=== PATIENT | male | born 1935 | race Caucasian/White ===

== ENCOUNTER 2021-11-29 12:07 | Emergency (ER) | payer MEDICARE, OTHER, SELFPAY ==
[2021-11-29 12:08] VITALS: BP 174/85; PULSE 89; RESP 16; TEMP 36; O2SAT 98; BMI 36.0
--- NOTE | 2021-11-29 12:33 | EDS_ITS ---
HPI History of Present Illness Chief Complaint: Cold Sx Informant: patient Narrative Narrative: Presents for treatment for COVID-19. +3 days ago he started having symptoms today feel sinus congestion mild cough. No fevers headache myalgias vomiting or diarrhea. He is COVID vaccinated with 2 boosters last time this past May. No COVID infections in the past. Home test yesterday negative today was positive. Tried calling PCP office they are unable to get him in and sent him to the ED. He denies any kidney issues. History of hypertension hyperlipidemia currently not on statin having side effects. Reports his is on Paxlovid, and is getting better therefore would like this treatment. [facility] Medical History (Updated 11/29/21 @ 12:43 by Polina Wang) Hypertension Home Medications fenofibrate nanocrystallized 145 mg tablet 145 mg PO DAILY 09/08/13 [History Last Taken Unknown] verapamil 240 mg 24 hr capsule,extended release (Verelan) 240 mg PO BID 09/08/13 [History Last Taken 02/02/14 08:30] aspirin 81 mg tablet,delayed release 81 mg PO DAILY@0800 ##1 09/23/13 [Rx Last Taken 01/12/14] Valsartan/Hydrochlorothiazide [Diovan Hct 320-25 Mg Tablet] 1 tab PO DAILY 01/03/14 [History Last Taken Unknown] hydrocodone-acetaminophen 5-325mg 5mg-325mg 1 - 2 tab PO Q6H PRN PRN MILD- MODERATE (PAIN SCALE 1-5) ##90 02/04/14 [Rx Last Taken Unknown] nirmatrelvir 300 mg (150 mg x2)-ritonavir 100 mg tablet,dose pack(EUA) (Paxlovid) See Rx Instructions PO .COMPLEX #30 tabs 11/29/21 [Rx Last Taken Unknown] Allergy/AdvReac Type Severity Reaction Status Date / Time Kgsiyku-WFP-UwS Reductase Allergy Other Verified 11/29/21 12:08 Inhibitor [Lzccgpd-Kih-Zev Reductase Inhibitor] Social History Smoking Status: Never smoker ROS ROS ED Constitutional Constitutional ED: Denies chills, fever(s) or sweats Eyes Eyes: Denies change in vision ENT ENT ED: Reports other Details: Sinus congestion ; Denies dysphagia or sore throat Cardiovascular Cardiovascular: Denies chest pain, leg edema, palpitations or racing heartbeat Respiratory/Chest Respiratory/Chest: Reports cough; Denies dyspnea or dyspnea on exertion Gastrointestinal Gastrointestinal: Denies abdominal pain, diarrhea, nausea or vomiting Genitourinary Genitourinary ED: Denies dysuria, hematuria or urinary frequency Musculoskeletal Musculoskeletal: Denies back pain, extremity pain or neck pain Integumentary Denies rash or wounds Neurologic Neurologic: Denies headache(s), paresthesias or weakness EXAM Physical Exam Const Vital Signs: 11/29/21 12:08 11/29/21 12:41 Temperature 96.8 F L Temperature Source Temporal Pulse Rate 89 Respiratory Rate 16 Respiratory Effort Normal Respiratory Pattern Normal Blood Pressure 174/85 H Blood Pressure Mean 114 Pulse Ox 98 Oxygen Delivery Method Room Air Positive well nourished and well developed General Appearance ED: well developed and NAD HEENT Reports moist mucous membranes normocephalic and atraumatic Eyes PERRL, EOMs intact bilaterally and conjunctivae normal General Eye ED: Yes normal appearance of both eyes Neck no lymphadenopathy and supple General: Negative for tenderness Chest Wall Chest: Negative for tenderness Resp normal respiratory effort and normal air movement Effort and Inspection: symmetric chest movement; Negative for respiratory distress Cardio regular rate, regular rhythm and no murmurs Peripheral Pulses: pulses 2+ throughout GI normal to inspection, nondistended, normoactive bowel sounds and non-tender Palpation: Negative for guarding or rebound tenderness present Back/Spine no CVA tenderness and no thoracic nor lumbar tenderness Extremity normal to inspection General Extremety ED: Negative for edema or tenderness General Extremity: Negative for edema Neuro oriented x3 and no sensory deficits noted Sensorium / Orientation: awake and alert Skin no rashes or lesions noted and no wounds MDM MDM MDM Narrative Medical decision making narrative: Patient nontoxic pulse ox 98% room air. Blood pressure 174/85 on blood pressure medicines. Asymptomatic. No respiratory distress. Prescription for Paxlovid sent to his pharmacy. Discussed potential rebound symptoms. Outpatient follow- up. Initially seen in his medicines [facility], last orthopedic surgery was 6 years ago. He showed me a med list he is only on baby aspirin. This was clarified. Discharge Plan Triage Chief Complaint: Cold Sx ED Provider: Kristian Pond Dx/Rx/DC Orders Clinical Impression: COVID-19 virus infection, Cough, Sinus congestion Instructions: Coronavirus Disease 2019 (COVID-19): Caring for Yourself or Others Prescriptions: New Paxlovid (EUA) 300 mg (150 mg x 2)-100 mg tablets,dose pack See Rx Instructions .ROUTE .COMPLEX Qty: 30 0RF Rx Instructions: take TWO 150 mg tablets of nirmatrelvir with ONE 100 mg tablet of ritonavir twice daily for 5 days Discontinued Xarelto 10 MG tablet 10 mg PO DAILY@0600 Qty: 28 0RF No Action verapamil [Verelan] 240 MG capsule,ext rel. pellets 24 hr 240 mg PO BID Label Comments: heart fenofibrate nanocrystallized 145 MG tablet 145 mg PO DAILY Label Comments: cholesterol aspirin 81 MG tablet 81 mg PO DAILY@0800 Qty: 1 0RF Label Comments: blood thinner/heart health Rx Instructions: DO NOT TAKE WITH XARELTO Valsartan/Hydrochlorothiazide [Diovan Hct 320-25 Mg Tablet] 1 TABLET tablet 1 tab PO DAILY hydrocodone-acetaminophen 1 TABLET tablet 1 - 2 tab PO Q6H PRN PRN (Reason: MILD-MODERATE (PAIN SCALE 1-5)) Qty: 90 0RF Primary Care Provider: Cade Lee Referrals: Cade Lee MD [Primary Care Provider] - 3-5 Days Activity Restrictions/Additional Instructions: Take medication as prescribed. Monitor for low oxygen levels. Disposition Disposition: Home, Self Care Discharge Date/Time: 11/29/21 12:44
== END 2021-11-29 12:44 | disposition home or self-care (01) ==
LOC: ED 12:33
PROVIDERS: Emergency Provider Emergency Medicine; PCP Family Medicine; Visit Provider Emergency Medicine
DX: U07.1 COVID-19 (principal); I10 Essential (primary) hypertension; Z79.82 Long term (current) use of aspirin; Z79.899 Other long term (current) drug therapy
CPT/HCPCS: 99282

== ENCOUNTER 2024-09-21 09:34 | Emergency (ER) | payer MEDICARE, OTHER, SELFPAY ==
[2024-09-21 09:35] VITALS: BP 136/78; PULSE 94; RESP 14; TEMP 36.6; O2SAT 97; BMI 34.7
--- NOTE | 2024-09-21 09:54 | VDLE_ITS ---
Reason For Study Reason For Study: Right leg pain RIGHT LEFT GSV is normal. CFV is compressible, spontaneous, phasic, competent, CFV is compressible, spontaneous, phasic, competent and demonstrates normal augmentation. and demonstrates normal augmentation. FV is compressible, spontaneous, phasic, competent and demonstrates normal augmentation. POP V is compressible, spontaneous, phasic, competent and demonstrates normal augmentation. T/P Trunk is compressible. PTV is compressible. RT PerV is compressible. Procedure This is a venous duplex using B-mode, color flow and spectral Doppler. Exam performed portable in ED. A preliminary report was called and/or faxed to Dr. Maldonado. VL/Venous Duplex US, Unilateral Interpretation Summary Deep veins of the right lower extremity are patent and compressible segmentally . There is no evidence of right lower extremity deep vein thrombosis. The right great saphenous vein appears patent a nd compressible segmentally. Ordering Physician: Karlos Maldonado Referring Physician: Cade Lee Performed By: Marija Gregorio RVT
--- NOTE | 2024-09-21 09:56 | RAD_ITS ---
EXAM: Right tibia and fibula, four views CLINICAL HISTORY: Pain COMPARISON: None TECHNIQUE: 2 AP and 2 lateral views of the right tibia and fibula FINDINGS: No demonstrated fracture or suspicious osseous lesion. Joint spaces are well-preserved Atherosclerotic calcifications. RAD/Tibia & Fibula 2 Views IMPRESSION: No acute abnormalities Reading Location: [id number]
--- NOTE | 2024-09-21 09:56 | RAD_ITS ---
PROCEDURE: FEMUR MIN 2 VIEWS 09/21/2024 REASON FOR EXAM: PAIN TECHNIQUE: FEMUR MIN 2 VIEWS Laterality: Right COMPARISON: None FINDINGS: No demonstrated femoral fracture. 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 The femoral component is free of complication or failure. Age consistent degenerative changes in the right knee. Soft tissues show peripheral calcifications in the popliteal artery No foreign body or suspicious soft tissue swelling RAD/Femur Min 2 Views IMPRESSION: No acute abnormalities Reading Location: [id number]
--- NOTE | 2024-09-21 09:56 | ED.VIS.LOWEX ---
HPI History of Present Illness Chief Complaint: Lower Extremity Injury Informant: patient and family Narrative Narrative: 88-year-old male brought in by family because 2 days ago he was at [employer] kneeling and as soon as he stood up he had a sudden onset of pain in his right buttock, anterior thigh, and his lower leg mostly in his galindo area. When he is resting is not really bothering him. He states he is spreading muscle cream on the areas and it really helps temporarily but then the pain returns, and is bad until he puts more muscle cream on it. He states when the muscle cream is there he has a little bit of discomfort but is able to walk. Weightbearing makes him hurt, and all of those above-mentioned areas. He does not have pain in his back, but he does have pain into the right buttock and he points in the area of the ischial tuberosity, as well as the posterior aspect of the hip but most of the pain otherwise is anterior and does not go down the back of his leg. He denies any numbness. He is not having claudication. He denies any other injury or fall. He denies any systemic symptoms, abdominal pain, chest discomfort or anything else. Family and patient agree that a week ago he had a day where he was feeling lightheaded off-and-on and he had some blood pressures that were borderline low, one of them being in the 90s but the majority of them being from 104-115 systolic. He states it has been a week since that has been the case, including the lightheadedness. [facility] Medical History Hypertension Home Medications ?Medication ?Instructions ?Recorded ?Last Taken ?Type fenofibrate nanocrystallized 145 145 mg PO DAILY 09/08/13 Unknown History mg tablet verapamil 240 mg 24 hr 240 mg PO BID 09/08/13 02/02/14 08:30 History capsule,extended release (Verelan) aspirin 81 mg tablet,delayed 81 mg PO DAILY@0800 ##1 09/23/13 01/12/14 Rx release Valsartan/Hydrochlorothiazide 1 tab PO DAILY 01/03/14 Unknown History [Diovan Hct 320-25 Mg Tablet] hydrocodone-acetaminophen 5-325mg 1 - 2 tab PO Q6H PRN PRN 02/04/14 Unknown Rx 5mg-325mg MILD-MODERATE (PAIN SCALE 1-5) ##90 nirmatrelvir 300 mg (150 mg See Rx Instructions PO .COMPLEX 11/29/21 Unknown Rx x2)-ritonavir 100 mg tablet,dose #30 tabs pack (Paxlovid) hydrocodone-acetaminophen 5-325mg 1 tab PO Q6H PRN PRN Pain 3 days 09/21/24 Unknown Rx 5mg-325mg #10 TABLETS prednisone 20 mg tablet 40 mg (2 x 20 mg) PO DAILY 5 days 09/21/24 Unknown Rx #10 tabs Allergy/AdvReac Type Severity Reaction Status Date / Time Knmmpme-VND-ClF Reductase Allergy Other Verified 09/21/24 09:35 Inhibitor (Haprdvg-Qbk-Hwn Reductase Inhibitor) Social History Smoking Status: Never smoker ROS ROS ED Constitutional Constitutional ED: Denies chills or fever(s) ENT ENT ED: Denies rhinorrhea or sore throat Cardiovascular Cardiovascular: Denies chest pain Respiratory/Chest Respiratory/Chest: Denies dyspnea Gastrointestinal Gastrointestinal: Denies abdominal pain Musculoskeletal Musculoskeletal: Reports extremity pain; Denies back pain or neck pain Integumentary Denies Abrasions, rash or wounds Neurologic Neurologic: Denies headache(s), paresthesias or weakness EXAM Physical Exam Const Vital Signs: 09/21/24 09:35 09/21/24 12:19 09/21/24 14:00 Temperature 98 F Temperature Source Temporal Pulse Rate 94 78 64 Respiratory Rate 14 16 18 Blood Pressure 136/78 H 138/78 H 138/78 H Blood Pressure Mean 97 98 98 Pulse Ox 97 98 98 Oxygen Delivery Method Room Air Room Air Room Air Positive well nourished and well developed General Appearance ED: well developed and NAD Neck full ROM and supple Resp normal respiratory effort and clear to auscultation bilaterally Cardio regular rate and regular rhythm GI non-tender and non-distended Auscultation: normoactive bowel sounds Palpation: soft Back/Spine no CVA tenderness, normal ROM and normal to inspection Back/Spine Narrative: SI joints, pelvic brim, ischial tuberosity all nontender Lumbar Spine / Lower Back: Negative for lumbar spinal tenderness Extremity full ROM Extremity Narrative: With regards to the right lower extremity, all compartments are soft and nondistended and nontender at rest. With passive full range of motion of the foot/ankle, knee, hip, patient does not have any pain or numbness/tingling. Reflexes are 1+ bilaterally but symmetric. No clonus. Downgoing toes. Difficult to palpate dorsalis pedis pulses but they are symmetric bilaterally, and he has brisk 2-second cap refill all toes. He does not have hip joint pain when I internally and externally rotate/logroll his right lower extremity. There are no palpable cords and his Homans' sign is negative. There is no edema in the leg and there is no asymmetry compared with the contralateral. There are no rashes or lesions to suggest cellulitis. Neuro oriented x3, no focal motor deficits and no sensory deficits noted Sensorium / Orientation: alert Psych mental status grossly normal and thought process normal Skin no wounds Rashes: no rashes MDM MDM MDM Narrative Medical decision making narrative: Patient states his leg is feeling pretty good right now because I have a muscle cream on. I can confirm this, because I can smell it. I am not able to reproduce any significant pain in any of these areas by palpating so I got him out of bed and had him bear weight. He was able to walk several steps forward and turned around to come back to the bed and he said he felt something in his right proximal thigh and buttock, but he really has no significant pain right now even with weightbearing and he states he thinks it is because of the muscle cream. Family member in the room states that she had a family member with a blood clot and they presented exactly the same. I advised her that there is nothing here to suggest that any of the symptoms are related to venous thromboembolism or claudication and that all of this seems to be very muscular in etiology. She is insistent on getting an ultrasound and for that reason it was obtained in addition to other test to rule out emergent conditions including CPK, basic labs, and x-rays of the right femur, tib-fib, and pelvis all of which included approximately 6 x-rays and on my interpretation are all negative for acute bony abnormality. We were able to Doppler pulses that are symmetric both feet very easily. According to the preliminary verbal interpretation of the venous eval from the commercial hvac technician, there is no evidence of venous thromboembolism. There was some delay in getting him to x-ray, and he started to have some more pain. He said at this point he was developing a little bit of tingling in the peroneal 3 toes but nowhere else. He stated that if he bends his knee up and flex the thigh, it felt more tingly and if he straighten his leg out it was better. Etiology of this is unknown, his straight leg raises were negative on exam suggesting he does not have sciatica. This could be peripheral neuropathy, it could simply be related to muscle spasms Irritating nerve endings, however I do not think he has any emergent limb threatening process here. On multiple examinations his skin exam is normal he has no rashes. Family I do not think this is central etiology of paresthesias. I think putting him on a 5-day course of prednisone in case this may or may not be a radiculopathy, is reasonable and also a prescription for some [place], we did give him a dose of Norflex and morphine here and he felt better, I think he can safely go home and follow-up with his doctor and continue using the muscle cream at his request. History & Record Review Discussion w/independent historian: Patient and Family (x2) Lab Data Attestation: I reviewed the patient's lab results. Labs: Laboratory Results - last 24 hr 09/21/24 10:09 WBC 8.0 RBC 4.62 Hgb 14.8 Hct 44.3 MCV 95.9 H MCH 32.0 MCHC 33.4 RDW Std Deviation 46.1 H RDW Coeff of Sammi 13.0 Plt Count 323 MPV 9.8 Sodium 137 Potassium 4.6 Chloride 104 Carbon Dioxide 19.1 L Anion Gap 14 BUN 34 H Creatinine 1.83 H Estim Creat Clear Calc 32.14 L Est GFR (MDRD) Non-Af 35 L BUN/Creatinine Ratio 18.6 Glucose 130 H Calcium 9.4 Total Creatine Kinase 60 Radiography Diagnostic Testing: Clinical Impression(s) from Imaging Studies Venous Doppler Study 09/21/24 09:54 Interpretation Summary Deep veins of the right lower extremity are patent and compressible segmentally. There is no evidence of right lower extremity deep vein thrombosis. The right great saphenous vein appears patent and compressible segmentally. Ordering Physician: Karlos Maldonado Referring Physician: Cade Lee Performed By: Marija Gregorio RVT Femur X-Ray 09/21/24 09:56 IMPRESSION: No acute abnormalities Reading Location: [facility] Tibia/Fibula X-Ray 09/21/24 09:56 IMPRESSION: No acute abnormalities Reading Location: [facility] Pelvis X-Ray 09/21/24 11:55 IMPRESSION: No acute abnormalities. Replaced hip joints free of complication Reading Location: [facility] Discharge Plan Triage Chief Complaint: Lower Extremity Injury ED Provider: Karlos Maldonado Dx/Rx/DC Orders Clinical Impression: Acute pain of right lower extremity Instructions: ED Sciatica, ED Muscle Strain, Extremity Prescriptions: New hydrocodone-acetaminophen 5-325 mg tablet 1 tab PO Q6H PRN PRN (Reason: Pain) 3 Days Qty: 10 0RF prednisone 20 mg tablet 40 mg PO DAILY 5 Days Qty: 10 0RF No Action verapamil [Verelan] 240 MG capsule,ext rel. pellets 24 hr 240 mg PO BID Patient Comments: heart fenofibrate nanocrystallized 145 MG tablet 145 mg PO DAILY Patient Comments: cholesterol aspirin 81 MG tablet 81 mg PO DAILY@0800 Qty: 1 0RF Patient Comments: blood thinner/heart health Rx Instructions: DO NOT TAKE WITH XARELTO Valsartan/Hydrochlorothiazide [Diovan Hct 320-25 Mg Tablet] 1 TABLET tablet 1 tab PO DAILY hydrocodone-acetaminophen 1 TABLET tablet 1 - 2 tab PO Q6H PRN PRN (Reason: MILD-MODERATE (PAIN SCALE 1-5)) Qty: 90 0RF Paxlovid 300 mg (150 mg x 2)-100 mg tablets,dose pack See Rx Instructions .ROUTE .COMPLEX Qty: 30 0RF Rx Instructions: take TWO 150 mg tablets of nirmatrelvir with ONE 100 mg tablet of ritonavir twice daily for 5 days Primary Care Provider: Cade Lee Referrals: Cade Lee MD [Primary Care Provider] - 3-5 Days if not improving Activity Restrictions/Additional Instructions: As long as it is helping you may continue to use the muscle cream as needed. Use the prescription pain medication for breakthrough pain if you need it. When you fill the prednisone, take it as prescribed until finished. Print Language: Bulgarian Disposition Disposition: Home, Self Care Discharge Date/Time: 09/21/24 14:30
[2024-09-21 10:15] LABS: Hematocrit 44.3 % (40-54); Hemoglobin 14.8 g/dL (13.0-16.5); Mean Corp Hgb Conc 33.4 g/dL (32-36); Mean Corpuscular Volume 95.9 fL (80-94); Mean Platelet Vol. 9.8 fl (6.2-12.0); Platelet Count 323 K/mm3 (150-450); RBC Distribution Width CV 13.0 % (11.6-14.6); RBC Distribution Width SD 46.1 fl (35.1-43.9); Red Blood Count 4.62 M/mm3 (4.6-6.2); White Blood Count 8.0 K/mm3 (4.4-11.0)
[2024-09-21 10:46] LABS: Anion Gap 14 (5-15); BUN 34 mg/dL (4-19); BUN/Creat Ratio 18.6 RATIO (10-20); CPK Total, Creatine Kinase 60 U/L (24-195); Calcium,Total 9.4 mg/dL (7.6-11.0); Carbon Dioxide 19.1 mmol/L (21.0-32.0); Chloride 104 mmol/L (98-108); Estimated Creatinine Clearance 32.14 ml/min (50-250); Glucose 130 mg/dL (70-99); Potassium 4.6 mmol/L (3.3-5.1)
--- NOTE | 2024-09-21 11:55 | RAD_ITS ---
PROCEDURE: PELVIS 1 OR 2 VIEWS 09/21/2024 REASON FOR EXAM: PAIN TECHNIQUE: PELVIS 1 OR 2 VIEWS COMPARISON: None FINDINGS: Both hips have been previously replaced. Components demonstrate anatomic alignment, no plain film evidence of hardware complication or failure. No demonstrated pelvic fracture, SI joints are well-preserved. No aggressive osseous lesion. RAD/Pelvis 1 or 2 Views IMPRESSION: No acute abnormalities. Replaced hip joints free of complication Reading Location: [id number]
[2024-09-21 12:19] VITALS: BP 138/78; PULSE 78; RESP 16; O2SAT 98
[2024-09-21] MEDS: Orphenadrine 60 MG/2 ML Ampul IV (12:29)
[2024-09-21 14:00] VITALS: BP 138/78; PULSE 64; RESP 18; O2SAT 98
[2024-09-21 14:29] VITALS: BP 135/81; PULSE 81; RESP 14; TEMP 36.6; O2SAT 98
--- OUTSIDE RECORDS SUMMARY | 2024-09-21 19:34 | XMS RPT_ITS | CCD ---
Author Organization [facility] Care Team Providers Care Certified Endoscopy Technician Name Role Phone Cade Laureano MD Primary Care Provider Kristian Pond Attending Unavailable Cade Laureano Primary Care Unavailable Cdae Laureano MD Primary Care Provider Cade Laureano MD Primary Care Provider Cade Laureano MD Primary Care Provider Rk GASOLINE TESTER.SARBJIT, Maday Unavailable Destiney Pichardo PA-C Unavailable Cade Laureano MD Primary Care Provider Rk GASOLINE TESTER.CORPORATE REAL ESTATE SPECIALIST, Maday Unavailable Destiney Pichardo PA-C Unavailable DESTINEY PICHARDO Attending Unavailable CADE LAUREANO Primary Care Unavailable DESTINEY PICHARDO Referring Unavailable CADE LAUREANO Primary Care Unavailable DESTINEY PICHARDO Referring Unavailable CADE LAUREANO Primary Care Unavailable CADE LAUREANO Attending Unavailable CADE LAUREANO Primary Care Unavailable CADE LAUREANO Referring Unavailable CADE LAUREANO Primary Care Unavailable Rosa BEINTO, Dr. Mohamud Primary Care Provider Dr. Karlos Maldonado MD Emergency Provider Janki BENITO, Dr. Youssef Attending Provider Allergies Allergy Classification Reported Allergen(s) Allergy Type Date of Onset Reaction(s) Facility Angiotensin Converting Enzyme (KORI) Inhibitors (1 source) Ramipril Drug Allergy 01-10-20 09 Cough [facility] Work Phone: Quinolones (antibiotic) (1 source) Ciprofloxacin Drug Allergy 05-09-19 16 Diarrhea [facility] (20 sources) Ciprofloxacin; Translations: [CIPROFLOXACIN] Drug Allergy 05-09-19 16 Diarrhea [facility] Work Phone: (20 sources) Ramipril; Translations: [RAMIPRIL] Drug Allergy 01-10-20 09 Cough [facility] Work Phone: (4 sources) Thiazides; Translations: [THIAZIDES] Drug Intolerance 04-08-19 Other: See Comments [facility] Work Phone: (17 sources) Thiazides Drug Intolerance 04-08-19 Other: See Comments [facility] Work Phone: (2 sources) Xatcjoo-Gxg-Yvf Reductase Inhibitor Allergy to substance 11-30-19 Other [facility] (1 source) Dpaleaz-Gsn-Ouw Reductase Inhibitor Drug allergy (disorder) 11-30-19 [facility] Repository (2 sources) Thiazides Drug Intolerance 04-08-19 Other: See Comments [facility] Medications Current Medications Medication Drug Class(es) Dates Sig (Normalized) Sig (Original) acetaminophen 325 mg / HYDROcodone bitartrate 5 mg oral tablet (3 sources) Opioid Agonist Start: 02-04-2014 take 1 tablet by mouth every six hours as needed for pain Hydrocodone-Aceta minophen 5-325 mg tablet Active 1 {tbl} PO EVERY 6 HOURS NEEDED as needed for Pain 10 3 0 September 21, 2024 Acute pain of right lower extremity Pain in right leg Start: 02-04-2014 take 1 tablet by reese th every six hours as needed Hydrocodone-Acetaminophen Active 1 - 2 TABLET PO EVERY 6 HOURS NEEDED February 04, 2014 1:00am aspirin 81 mg delayed release oral tablet (20 sources) Platelet Aggregation Inhibitor, Nonsteroidal Anti-inflammatory Drug Start: 09-08-2013 End: 09-23-2013 take 1 tablet by mouth once daily aspirin, enteric coated (ADULT LOW DOSE ASPIRIN) 81 mg EC tablet Take 1 tablet by mouth once daily. 0 05/05/2014 Active Comment on above: Take 1 tablet by reese th once daily. cholecalciferol 0.025 mg oral capsule (1 source) Vitamin D Start: 08-17-2024 take 2 capsules by mouth once daily Cholecalciferol, Vitamin D3, (VITAMIN D) 25 mcg (1,000 unit) cap Take 2 capsules by mouth once daily. 08/17/2024 Active fenofibrate 145 mg oral tablet (20 sources) Peroxisome Proliferator Receptor alpha Agonist Start: 07-01-2024 take 1 tablet by mouth once daily fenofibrate nanocrystallized (TRICOR) 145 mg tablet Take 1 tablet by mouth once daily. 90 tablet 1 07/01/2024 Active Start: 09-08-2013 End: 01-02-2024 take 1 tablet by mouth once daily fenofibrate nanocrystallized (TRICOR) 145 mg tablet Take 1 tablet by mouth once daily. 90 tablet 1 01/02/2024 Active Comment on above: Take 1 tablet by reese th once daily. 12 hr guaiFENesin 600 mg extended release oral tablet (9 sources) Start: take 2 tablets by mouth twice daily guaiFENesin (MUCINEX) 600 mg 12 hr tablet Take 2 tablets by mouth two times a day. 08/25/2023 Active hydroCHLOROthiazide 25 mg / valsartan 320 mg oral tablet (2 sources) Thiazide Diuretic, Angiotensin 2 Receptor Guido Start: take 1 tablet by mouth once daily Valsartan/Hydroch lorothiazide (Diovan Hct 320-25 Mg Tablet) 1 TABLET tablet Active 1 {tbl} PO DAILY January 03, 2014 1:00am ipratropium bromide 0.021 mg/actuat metered dose nasal spray (9 sources) Anticholinergic Start: Ipratropium [place] (ATROVENT) 21 mcg (0.03 %) nasal spray Use 2 Sprays in the nose every 12 hours. 08/25/2023 Active latanoprost 0.05 mg/ml ophthalmic solution (20 sources) Prostaglandin Analog latanoprost , PF, 0.005 % drop Use in eyes. Active Comment on above: Use in eyes. Loratadine (20 sources) loratadine (CLARITIN ORAL) Take by mouth. Active loratadine (CLAR ITIN ORAL) Take by mouth. 0 Active Comment on above: Take by mouth. melatonin 1 mg oral tablet (11 sources) take 1 mg by mouth once daily at bedtime MELATONIN ORAL Take 1 mg by mouth daily at bedtime. Active Nirmatrelvir-Ritonav ir (2 sources) Start: 11-29-2021 Nirmatrelvir-Ritonavir (Paxlovid (Eua)) 300 mg (150 mg x 2)-100 mg tablets,dose pack Active 0 PO .COMPLEX November 29, 2021 12:00am take TWO 150 mg tablets of nirmatrelvir with ONE 100 mg tablet of ritonavir twice daily for 5 days Start: 11-29-2021 Nirmatrelvir-R itonavir (Paxlovid (Eua)) 300 mg (150 mg x 2)- 100 mg tablets,dose pack Active 0 PO .COMPLEX November 29, 2021 12:00am take TWO 150 mg tablets of nirmatrelvir with ONE 100 mg tablet of ritonavir twice daily for 5 days predniSONE 20 mg oral tablet (1 source) Start: 09-21-2024 take 2 tablets by mouth once daily Prednisone 20 mg tablet Active 40 mg PO DAILY 10 September 21, 2024 12:00am spironolactone 25 mg oral tablet (20 sources) Aldosterone Antagonist Start: 07-19-2022 End: 04-20-2024 take 1 tablet by mouth once daily spironolactone (ALDACTONE) 25 mg tablet Indications: Essential hypertension Take 1 tablet by mouth once daily. 90 tablet 2 04/20/2024 Active Start: 06-08-2021 End: 09-10-2021 take 1 tablet by mouth once daily spironolactone (ALDACTONE) 25 mg tablet Take 1 tablet by mouth once daily. 90 tablet 2 09/10/2021 Active Comment on above: Take 1 tablet by reese once daily. traZODone hydrochloride 50 mg oral tablet (11 sources) Serotonin Reuptake Inhibitor Start: take 1 tablet by mouth once daily at bedtime traZODone (DESYREL) 50 mg tablet Take 1 tablet by mouth daily at bedtime. 90 tablet 1 03/05/2024 Active Start: 07-22-2023 End: 02-16-2024 take 1 tablet by mouth once daily at bedtime traZODone (DESYREL) 50 mg tablet Take 1 tablet by mouth daily at bedtime. 90 tablet 1 07/22/2023 02/16/2024 Discontinued (Discontinued by Patient) verapamil hydrochloride 240 mg extended release oral tablet (20 sources) Calcium Channel Guido Start: 07-19-2022 End: 07-19-2024 take 1 tablet by mouth twice daily verapamil SR (CALAN SR) 240 mg CR tablet Indications: Essential hypertension Take 1 tablet by mouth two times a day. 180 tablet 3 07/19/2024 Active Start: 06-08-2021 End: 07-17-2021 take 1 tablet by mouth twice daily verapamil SR (CALAN SR, ISOPTIN SR) 240 mg CR tablet Take 1 tablet by mouth twice daily. 180 tablet 1 07/17/2021 Active Start: 09-08-2013 take 1 capsule by mo [facility] twice daily Verapamil (Verelan) 240 MG capsule,ext rel. pellets 24 hr Active 240 mg PO TWICE A DAY September 08, 2013 12:00am Comment on above: Take 1 tablet by reese twice daily. Take 1 tablet by reese two times a day. vitamin b12 1 mg oral tablet (16 sources) Vitamin B12 Start: 05-14-2023 End: 07-22-2023 take 1 tablet by mouth once daily cyanocobalamin (VITAMIN B-12) 1,000 mcg tab Take 1 tablet by mouth once daily. 90 tablet 3 07/22/2023 Active Comment on above: Take 1 tablet by reese once daily. Completed/Discontinued Medications Medication Drug Class(es) Dates Sig (Normalized) Sig (Original) acetaminophen 500 mg oral tablet (4 sources) take 1 tablet by mouth every eight hours as needed acetaminophen (TYLENOL EXTRA STRENGTH) 500 mg tablet Take 500 mg by mouth every 8 hours as needed. 0 Active Comment on above: Take 500 mg by mouth every 8 hours as needed. docusate sodium 50 mg / sennosides, snf 8.6 mg oral tablet (3 sources) Start: 05-20-2023 End: 07-22-2023 take 1 tablet by mouth twice daily senna-docusate (SENNA WITH DOCUSATE SODIUM) 8.6-50 mg per tablet Take 1 tablet by mouth two times a day. 60 tablet 5 05/20/2023 07/22/2023 Discontinued Comment on above: Take 1 tablet by reese two times a day. montelukast 10 mg oral tablet (20 sources) Leukotriene Receptor Antagonist Start: 07-19-2022 End: 02-16-2024 take 1 tablet by mouth once daily at bedtime montelukast (SINGULAIR) 10 mg tablet Indications: Allergic rhinitis, unspecified seasonality, unspecified trigger Take 1 tablet by mouth daily at bedtime. 90 tablet 1 07/29/2023 02/16/2024 Discontinued (Discontinued by Patient) Comment on above: Take 1 tablet by reese th daily at bedtime. Take 10 mg by mouth daily at bedtime. naproxen sodium 220 mg oral tablet (20 sources) Nonsteroidal Anti-inflammatory Drug Start: 09-08-2013 End: 09-23-2013 take 2 tablets by mouth every twelve hours as needed for pain Naproxen Sodium (Aleve) 220 MG tablet Discontinued 440 mg PO EVERY 12 HOURS NEEDED as needed for Pain September 08, 2013 12:00am September 23, 2013 1:43pm naproxen sodium 220 mg cap Take by mouth as directed. Active Comment on above: Take by mouth as dir ected. Polyethylene Glycols (6 sources) End: 02-16-2024 polyethylene glycol 3350 (MIRALAX ORAL) Take by mouth. 02/16/2024 Discontinued (Discontinued by Patient) polyethylene gly col 3350 (MIRALAX ORAL) Take by mouth. Active polyethylene gly col 3350 (MIRALAX ORAL) Take by mouth. 0 Active rivaroxaban 10 mg oral tablet (2 sources) Factor Xa Inhibitor Start: 02-04-2014 End: 11-29-2021 take 1 tablet by mouth once daily Rivaroxaban (Xarelto) 10 MG tablet Discontinued 10 mg PO DAILY@0600 28 0 February 04, 2014 1:00am November 29, 2021 12:30pm traMADol hydrochloride 50 mg oral tablet (2 sources) Opioid Agonist Start: 01-03-2014 End: 02-04-2014 take 1 tablet by mouth twice daily Tramadol 50 MG tablet Discontinued 50 mg PO TWICE A DAY January 03, 2014 1:00am February 04, 2014 2:12pm Problems Active Problems Problem Classification Problem Date Documented Da te Episodic/Chronic Chronic kidney disease (20 sources) Chronic kidney disease stage 3A ; Translations: [Stage 3a chronic kidney disease] Onset: 01-29-2016 11-03-2020 Chronic Chronic kidney disease (1 source) Chronic kidney disease; Translations: [Stage 3a chronic kidney disease (HCC)] Onset: 11-03-2020 Disorders of lipid metabolism (20 sources) Mixed hyperlipidemia; Translations: [Mixed hyperlipidemia] Onset: 02-05-2021 Resolved: 11-06-2010 02-05-2021 Chronic Essential hypertension (20 sources) Essential hypertension; Translations: [Essential (primary) hypertension] Onset: 11-08-2014 08-14-2016 Chronic Fluid and electrolyte disorders (20 sources) Hypokalemia; Translations: [Hypokalemia] Onset: 04-02-2018 04-02-2018 Episodic Hyperplasia of prostate (20 sources) Benign prostatic hyperplasia; Translations: [Benign prostatic hyperplasia without lower urinary tract symptoms] Onset: 11-08-2014 11-08-2014 Chronic Malaise and fatigue (1 source) Fatigue; Translations: [Other fatigue] 05-13-2023 Episodic Miscellaneous mental health disorders (14 sources) Primary insomnia; Translations: [Primary insomnia] Onset: 07-22-2023 05-13-2023 Chronic Neoplasms of unspecified nature or uncertain behavior (1 source) Thrombocytosis; Translations: [Thrombocytosis] 05-14-2023 Episodic Nutritional deficiencies (2 sources) Vitamin D deficiency; Translations: [Vitamin D deficiency, unspecified] Onset: 08-17-2024 08-17-2024 Chronic Osteoarthritis (20 sources) Lower limb joint arthritis; Translations: [Unilateral primary osteoarthritis, unspecified hip] Onset: 11-05-2013 01-29-2016 Chronic Other connective tissue disease (1 source) Pain in lower limb; Translations: [Pain in right leg] 09-21-2024 Episodic Other lower respiratory disease (2 sources) Cough; Translations: [Cough] 12-07-2021 Episodic Other nutritional; endocrine; and metabolic disorders (1 source) Hypercalcemia; Translations: [Hypercalcemia] 08-16-2024 Chronic Other nutritional; endocrine; and metabolic disorders (1 source) Hypercalcemia; Translations: [Hypercalcemia] Onset: 08-16-2024 Chronic Other screening for suspected conditions (not mental disorders or infectious disease) (1 source) Serum creatinine raised; Translations: [Other specified abnormal findings of blood chemistry] 05-14-2023 Episodic Other skin disorders (1 source) Actinic keratosis; Translations: [Actinic keratosis] 02-16-2024 Episodic Other upper respiratory disease (20 sources) Allergic rhinitis; Translations: [Allergic rhinitis, unspecified] Onset: 07-19-2022 01-20-2023 Chronic Other upper respiratory disease (2 sources) Congestion of nasal sinus; Translations: [Nasal congestion] 12-07-2021 Episodic Residual codes; unclassified (1 source) Family history of factor V deficiency; Translations: [Family history of diseases of the blood and blood-forming organs and certain disorders involving the immune mechanism] 05-13-2023 Episodic Viral infection (2 sources) Disease caused by 2019-nCoV; Translations: [COVID-19] 11-29-2021 Episodic Viral infection (1 source) COVID-19; Translations: [COVID-19] Onset: 12-05-2021 Past or Other Problems Problem Classification Problem Date Documented Date Episodic/Chronic Administrative/social admission (19 sources) Advance directive discussed with patient; Translations: [Other specified counseling] Onset: 01-17-2022 01-17-2022 Episodic Diabetes mellitus without complication (20 sources) Hyperglycemia; Translations: [Hyperglycemia, unspecified] Onset: 03-03-2019 09-01-2019 Episodic Nutritional deficiencies (20 sources) Serum vitamin B12 low; Translations: [Deficiency of other specified B group vitamins] Onset: 05-14-2023 05-14-2023 Episodic Other aftercare (20 sources) Patient encounter status; Translations: [Other spray gun repairer (current) drug therapy] Onset: 09-01-2019 09-01-2019 Episodic Other aftercare (1 source) Other [facility] (current) drug therapy; Translations: [Medication management] Onset: 09-01-2019 Episodic Other male genital disorders (20 sources) Disorder of prostate; Translations: [Disorder of prostate, unspecified] Onset: 05-09-2015 05-09-2015 Episodic Other male genital disorders (1 source) Disorder of prostate, unspecified; Translations: [Disorder of prostate] Onset: 05-09-2015 Episodic Other non-epithelial cancer of skin (20 sources) Basal cell carcinoma of skin; Translations: [Basal cell carcinoma of skin, unspecified] Onset: 05-09-2015 02-05-2021 Episodic Screening and history of mental health and substance abuse codes (20 sources) Ex-smoker; Translations: [Personal history of nicotine dependence] Onset: 03-03-2019 03-04-2019 Episodic Spondylosis; intervertebral disc disorders; other back problems (12 sources) Degeneration of lumbosacral intervertebral disc; Translations: [Other intervertebral disc degeneration, lumbosacral region] Onset: 05-21-2000 Resolved: 11-06-2010 11-06-2010 Chronic Spondylosis; intervertebral disc disorders; other back problems (20 sources) Spinal stenosis of lumbar region; Translations: [Spinal stenosis, lumbar region without neurogenic claudication] Onset: 05-21-2000 01-29-2016 Episodic Results Test Name Value Interpretation Reference Range Facility Anion gap in Serum or Plasma Ordered By: Karlos Maldonado on 09-21-2024 Anion gap [Moles/Vol] 14 mmol/L 5-15 [facility] BUN/creatinine ratioOrdered By: Karlos Maldonado on 09-21-2024 Urea nitrogen/Creatinine [Mass ratio] 18.6 mg/mg 10-20 [facility] Carbon dioxide, total [Moles /volume] in Central venous bloodOrdered By: Karlos Maldonado on 09-21-2024 CO2 [Moles/Vol] 19.1 mmol/L Low 21.0-32.0 [facility] Chloride assayOrdered By: Emily Maldonado on 09-21-2024 Chloride [Moles/Vol] 104 mmol/L 98-108 [facility] Erythrocyte distribution wid th ratioOrdered By: Karlos Maldonado on 09-21-2024 Erythrocyte distribution width (RBC) [Ratio] 13.0 % 11.6-14.6 [facility] Erythrocyte distribution wid th standard deviationOrdered By: Karlos Maldonado on 09-21-2024 Erythrocyte distribution width (RBC) [Ratio] 46.1 fl High 35.1-43.9 [facility] Glomerular filtration rate ( GFR) estimation/1.73 sq m using serum, plasma, or whole bOrdered By: Karlos Maldonado on 09-21-2024 GFR/1.73 sq M.predicted among non-blacks MDRD (S/P/Bld) [Vol rate/Area] 35 mL/min/{1.73_m2} Low >60 [facility] Comment on above: mL/min/1.73m2 CKD-EP I Creatinine Equation (2020) Hematocrit Auto (Bld) [Volum e fraction]Ordered By: Karlos Maldonado on 09-21-2024 Hematocrit (Bld) [Volume fraction] 44.3 % 40-54 [facility] Hemoglobin measurementOrdere d By: Karlos Maldonado on 09-21-2024 Hemoglobin (Bld) [Mass/Vol] 14.8 g/dL 13.0-16.5 [facility] MCV (mean corpuscular volume ) determinationOrdered By: Karlos Maldonado on 09-21-2024 MCV (RBC) [Entitic vol] 95.9 fL High 80-94 [facility] Mean corpuscular hemoglobin (MCH) determinationOrdered By: Karlos Maldonado on 09-21-2024 MCH (RBC) [Entitic mass] 32.0 pg 27.0-32.0 [facility] Mean corpuscular hemoglobin concentration (MCHC) determinationOrdered By: Karlos Maldonado on 09-21-2024 MCHC (RBC) [Mass/Vol] 33.4 g/dL 32-36 [facility] Mean platelet volume determi nationOrdered By: Karlos Maldonado on 09-21-2024 Platelet mean volume (Bld) [Entitic vol] 9.8 fL 6.2-12.0 [facility] Platelet countOrdered By: Emily Maldonado on 09-21-2024 Platelets (Bld) [#/Vol] 323 10*3/uL 150-450 [facility] Potassium measurement (mass/ volume)Ordered By: Karlos Maldonado on 09-21-2024 Potassium (Unsp spec) [Mass/Vol] 4.6 mmol/L 3.3-5.1 [facility] RBC Auto (Bld) [#/Vol]Ordere d By: Karlos Maldonado on 09-21-2024 RBC (Bld) [#/Vol] 4.62 10*6/uL 4.6-6.2 [facility] Serum creatinine measurement (mass/volume)Ordered By: Karlos Maldonado on 09-21-2024 Creatinine [Mass/Vol] 1.83 mg/dL High 0.70-1.20 [facility] Serum glucose measurement (m ass/volume)Ordered By: Karlos Maldonado on 09-21-2024 Glucose [Mass/Vol] 130 mg/dL High 70-99 [facility] Serum or plasma calcium rudy urement (mass/volume)Ordered By: Karlos Maldonado on 09-21-2024 Calcium [Mass/Vol] 9.4 mg/dL 7.6-11.0 [facility] Serum or plasma creatine kin ase activityOrdered By: Karlos Maldonado on 09-21-2024 CK [Catalytic activity/Vol] 60 U/L 24-195 [facility] Serum or plasma urea nitroge n measurement (mass/volume)Ordered By: Karlos Maldonado on 09-21-2024 Urea nitrogen [Mass/Vol] 34 mg/dL High 4-19 [facility] Sodium levelOrdered By: Hunter Maldonado on 09-21-2024 Sodium [Moles/Vol] 137 mmol/L 133-145 [facility] Venous duplex ultrasound rep ortOrdered By: Mikael Shearer on 09-21-2024 US Vein [facility] [address] [place] [address] Venous Duplex US, Unilateral 09/21/24 0956 MR#: [id number] Acct: [id number] Name: JENIFER PEREZ Rep #:[id number] : 1935 88 From: Mikael Saxena Attending Dr: Status: REG E R Ordering Dr: Karlos Maldonado MD Date: 09/21/24 Location: ED Sex: M C Admitted: Reason For Study Reason For Study: Right leg pain RIGHT LEFT GSV is normal. CFV is compressible, spontaneous, phasic, competent, CFV is compressible, spontaneous, phasic, competent and demonstrates normal augmentation. and demonstrates normal augmentation. FV is compressible, spontaneous, phasic, competent and demonstrates normal augmentation. POP V is compressible, spontaneous, phasic, competent and demonstrates normal augmentation. T/P Trunk is compressible. PTV is compressible. RT PerV is compressible. Procedure This is a venous duplex using B-mode, color flow and spectral Doppler. Exam performed portable in ED. A preliminary report was called and/or faxed to Dr. Maldonado. VL/Venous Duplex US, Unilateral Interpretation Summary Deep veins of the right lower extremity are patent and compressible segmentally.There is no evidence of right lower extremity deep vein thrombosis. The right great saphenous vein appears patent and compressible segmentally. Ordering Physician: Karlos Maldonado Referring Physician: Cade Laureano Performed By: Marija Gregorio RVT 09/21/24 1347 Date _ Mikael Shearer MD CC: Dr. Karlos Maldonado MD; Dr. Cade Laureano MD ~ Date Dictated: 09/21/24955 Date Transcribed: 09/21/241346 Wire Mesh Knitter: Signed [facility] Work Phone: White blood cell (WBC) count Ordered By: Karlos Maldonado on 09-21-2024 WBC (Bld) [#/Vol] 8.0 10*3/uL 4.4-11.0 [facility] 25(OH)D3 SerPl-ncon 2024 25-hydroxyvitamin D3 [Mass/Vol] 25.4 ng/mL Low 31.0-80.0 [facility] Comment on above: Order Comment: Speci men Type: BLOOD SPECIMEN Ordering Facility: [facility] Address: [address] [place] [address] Result Comment: Clas sification of 25 [place] Vitamin D status: Deficiency/Insufficiency: < or = 30 ng/ml. Sufficiency/Optimal Levels: 31-80 ng/mL Toxicity: > 100 ng/mL. Test performed by chemiluminescent immunoassay. Performed By: #### 1 [id number] #### [facility] CLIA [id number] [address] [place] [address] [place] 25-hydroxyvitamin D3 [Mass/V ol]on 08-16-2024 Interpretation and review of laboratory results Abnormal [facility] The reference range interval was based on an analysis of samples from healthy adults and may not pertain to children from 0-18 years old. [facility] CALCIUM, TOTALon 08-16-2024 Calcium [Mass/Vol] 10.1 mg/dL 8.5 - 10. 2 mg/dL [facility] CNOVon 08-16-2024 CNOV Office Visit (FAMPWS) JENIFER PEREZ ([id number]) 1935 M Date Time Provider Department 08/16/24 9:40 AM DEST[facility]Y [facility] During your visit today, we recorded the following information about you: Pulse Blood pressure Weight 82/minute 125/78 100.9 kg Destiney Pichardo PA-C 08/16/2024 11:01 AM Signed Chief Complaint Patient presents with: F/U 6 Month: With lab review HPI Jenifer Perez is a 88 year old male who presents here today for Chronic Medical Conditions.. Patient with hx of HTN, hyperlipidemia, CKD, low b12, allergies and those as below. Hypertension: - Home blood pressure readings typically range from 120-130/70 mmHg. - Blood pressure was 125/78 at home this morning. - Monitors blood pressure at home about once a week; previously checked daily. - No antihypertensive medication taken today before readings. Dietary Habits: - Jenifer consumes a significant amount of fruit. - Inquires if fruit consumption could affect glucose levels. Fatigue: - Experiences fatigue after 10-15 minutes of physical activity. - Engages in outdoor work, including cutting trees and maintaining a 2.5-acre lawn. - Recently trimmed 120 bushes around his property. - Reports feeling tired out quickly but recovers easily after rest. - Denies chest pain during activities. Hydration: - Suspects possible dehydration due to outdoor work and sweating. - Drinks water but may need to incorporate electrolytes. Past medical history, appointments, medications, allergies reviewed. Previous Medical History PAST MEDICAL HISTORY Diagnosis Date Allergic rhinitis 07/19/2022 Basal cell carcinoma of skin 05/09/2015 Right ear 02/2015 by [facility]. Benign non-nodular prostatic hyperplasia without lower urinary tract symptoms 11/08/2014 Chronic insomnia 07/22/2023 Elevated blood sugar 03/03/2019 Essential hypertension 11/08/2014 08/14/2016: Home BP Cuff Validated. Home BP: 116/64 Office BP: 124/68 Ex-smoker 03/03/2019 Started at the age 19 Up to 3 PPD and quit at age 33 Hypokalemia 04/02/2018 suspect related to HCTZ Low serum vitamin B12 05/14/2023 Mixed hyperlipidemia Hyperlipidemia Osteoarth NOS-pelvis 05/21/2000 Renal insufficiency 01/29/2016 Advised to avoid NSAID's 01/29/2016 SPINAL STENOSIS-LUMBAR 05/21/2000 Stage 3a chronic kidney disease (HCC) 01/29/2016 Advised to avoid NSAID's 01/29/2016 Previous Surgical History PAST SURGICAL HISTORY Procedure Laterality Date ARTHRP ACETBLR/PROX FEM PROSTC AGRFT/ALGRFT 09/21/13 right PAST SURGICAL HISTORY OF 02/2015 skin cancer right ear TOTAL HIP REPLACEMENT 01/2014 Lt Family History FAMILY HISTORY Problem Relation Age of Onset Alzheimer's Disease Mother Arthritis Mother Cancer Father wicho cell - face Lipids Father Hypertension Father Diabetes Brother Cancer Brother lung Heart Brother Lipids Brother Hypertension Brother other (arthritis) Daughter psoratic Patient Allergies ALLERGIES Allergen Reactions Altace [Ramipril] Cough Cough Ciprofloxacin Diarrhea Hctz [Thiazides] Other: See Comments hypokalemia Current Medications Current Outpatient Medications on File Prior to Visit Medication Sig verapamil SR (CALAN SR) 240 mg CR tablet Take 1 tablet by mouth two times a day. fenofibrate nanocrystallized (TRICOR) 145 mg tablet Take 1 tablet by mouth once daily. spironolactone (ALDACTONE) 25 mg tablet Take 1 tablet by mouth once daily. Ipratropium [place] (ATROVENT) 21 mcg (0.03 %) nasal spray Use 2 Sprays in the nose every 12 hours. guaiFENesin (MUCINEX) 600 mg 12 hr tablet Take 2 tablets by mouth two times a day. cyanocobalamin (VITAMIN B-12) 1,000 mcg tab Take 1 tablet by mouth once daily. loratadine (CLARITIN ORAL) Take by mouth. naproxen sodium 220 mg cap Take by mouth as directed. latanoprost, PF, 0.005 % drop Use in eyes. aspirin, enteric coated (ADULT LOW DOSE ASPIRIN) 81 mg EC tablet Take 1 tablet by mouth once daily. traZODone (DESYREL) 50 mg tablet Take 1 tablet by mouth daily at bedtime. (Patient not taking: Reported on 08/16/2024) MELATONIN ORAL Take 1 mg by mouth daily at bedtime. (Patient not taking: Reported on 08/16/2024) No current facility-administere d medications on file prior to visit. Social History Social History Tobacco Use Smoking status: Former Current packs/day: 0.00 Average packs/day: 3.0 packs/day for 20.0 years (60.0 ttl pk-yrs) Types: Cigarettes Start date: 02/11/1956 Quit date: 02/11/1976 Years since quittin.5 Smokeless tobacco: Never Vaping Use Vaping status: Never Used Substance Use Topics Alcohol use: Yes Comment: very rare. maybe some during holidays Drug use: No Comment: denies tx Review of Symptoms REVIEW OF SYSTEMS GENERAL: No weight loss, malaise or fevers NECK: Negative for lumps, goiter, pain and significant neck (more content not included)... Normal [facility] Calcium SerPl-mCncon 025 Calcium [Mass/Vol] 10.1 mg/dL Normal 8.5-10.2 [facility] Comment on above: Order Comment: Speci men Type: BLOOD SPECIMEN Ordering Facility: [facility] Address: [address] [place] [address] Performed By: #### 2 731-8, , 93296-5 #### [facility] CLIA [id number] [address] [place] [address] [place] No Panel Informationon 08-16 Interpretation and review of laboratory results Normal [facility] POTASSIUMon 08-16-2024 Potassium [Moles/Vol] 4.7 mmol/L 3.7 - 5.1 mmol/L [facility] Potassium [Moles/Vol] 4.7 mmol/L Normal 3.7-5.1 [facility] Comment on above: Order Comment: Speci men Type: BLOOD SPECIMEN Ordering Facility: [facility] Address: [address] [place], [place] [address] Performed By: #### 2 731-8, K1, 29258-1 #### [facility] CLIA [id number] [address] [place] [address] [place] PTH INTACTon 08-16-2024 Parathyrin.intact [Mass/Vol] 32 pg/mL 15 - 65 pg/mL [facility] PTH-Intact SerPl-mCncon 07-0 Parathyrin.intact [Mass/Vol] 32 pg/mL Normal 15-65 [facility] Comment on above: Order Comment: Speci men Type: BLOOD SPECIMEN Ordering Facility: [facility] Address: [address] [place] [address] Performed By: #### 2 731-8, K1, 75855-2 #### [facility] CLIA [id number] [address] [place] [address] [place] VITAMIN D 25 HYDROXYon 08-16 25-hydroxyvitamin D3 [Mass/Vol] 25.4 ng/mL Low 31.0 - 80.0 ng/mL [facility] Comment on above: Classification of 25 [place] Vitamin D status: Deficiency/Insufficiency: < or = 30 ng/ml. Sufficiency/Optimal Levels: 31-80 ng/mL Toxicity: > 100 ng/mL. Test performed by chemiluminescent immunoassay. Basic metabolic 2000 panelon 08-11-2024 Anion gap [Moles/Vol] 13 mmol/L Normal 8-15 [facility] Comment on above: Order Comment: Speci men Type: BLOOD SPECIMEN Ordering Facility: [facility] Address: [address] [place], [place] [address] Performed By: #### 2 4321-2 #### [facility] CLIA [id number] [address] [place] [address] [place] Calcium [Mass/Vol] 10.4 mg/dL High 8.5-10.2 [facility] Comment on above: Order Comment: Speci men Type: BLOOD SPECIMEN Ordering Facility: [facility] Address: [address] [id number] Performed By: #### 2 4321-2 #### [facility] CLIA [id number] [address] [place] [address] [place] Chloride [Moles/Vol] 107 mmol/L Normal 98-107 [facility] Comment on above: Order Comment: Speci men Type: BLOOD SPECIMEN Ordering Facility: [facility] Address: [address] [place] [address] Performed By: #### 2 4321-2 #### [facility] CLIA [id number] [address] [place] [address] [place] CO2 [Moles/Vol] 21 mmol/L Low 22-30 [facility] Comment on above: Order Comment: Speci men Type: BLOOD SPECIMEN Ordering Facility: [facility] Address: [address] [place] [address] Performed By: #### 2 4321-2 #### [facility] CLIA [id number] [address] [place] [address] [place] Creatinine [Mass/Vol] 1.38 mg/dL High 0.73-1.22 [facility] Comment on above: Order Comment: Speci men Type: BLOOD SPECIMEN Ordering Facility: [facility] Address: [address] [place] [address] Performed By: #### 2 4321-2 #### [facility] CLIA [id number] [address] [place] [address] [place] Creatinine and Glomerular filtration rate.predicted panel (S/P/Bld) 49 mL/min/1.73m??? Low >=60 [facility] Comment on above: Order Comment: Speci men Type: BLOOD SPECIMEN Ordering Facility: [facility] Address: [address] [place] [address] Result Comment: Trinity mated Glomerular Filtration Rate (eGFR) is calculated using the 2020 CKD-EPI creatinine equation. This equation utilizes serum creatinine, sex, and age as parameters. The creatinine assay has traceable calibration to isotope dilution-mass spectrometry. Refer to KDIGO guidelines for clinical interpretation. In patients with unstable renal function, e.g. those with acute kidney injury, the eGFR may not accurately reflect actual GFR. Performed By: #### 2 4321-2 #### [facility] CLIA [id number] [address] [place] [address] [place] Glucose [Mass/Vol] 123 mg/dL High 74-99 [facility] Comment on above: Order Comment: Alexus pereira Type: BLOOD SPECIMEN Ordering Facility: [facility] Address: [address] [place] [address] Result Comment: The [place] Diabetes Association (ADA) provides guidance for cutoff values for fasting glucose and random glucose. The ADA defines fasting as no caloric intake for at least 8 hours. Fasting plasma glucose results between 100 to 125 mg/dL indicate increased risk for diabetes (prediabetes). Fasting plasma glucose results greater than or equal to 126 mg/dL meet the criteria for diagnosis of diabetes. In the absence of unequivocal hyperglycemia, results should be confirmed by repeat testing. In a patient with classic symptoms of hyperglycemia or hyperglycemic crisis, random plasma glucose results greater than or equal to 200 mg/dL meet the criteria for diagnosis of diabetes. Reference: Standards of Medical Care in Diabetes 2016, [place] Diabetes Association. Diabetes Care. 2016.39(Suppl 1). Performed By: #### 2 4321-2 #### [id number] [address] [place] [address] [place] Potassium [Moles/Vol] 5.2 mmol/L High 3.7-5.1 [facility] Comment on above: Order Comment: Alexus pereira Type: BLOOD SPECIMEN Ordering Facility: [facility] Address: [address] [place] [address] Performed By: #### 2 4321-2 #### [facility] CLIA [id number] [address] [place] [address] [place] Sodium [Moles/Vol] 141 mmol/L Normal 136-144 [facility] Comment on above: Order Comment: Alexus men Type: BLOOD SPECIMEN Ordering Facility: [facility] Address: [address] [place] [address] Performed By: #### 2 4321-2 #### [facility] CLIA [id number] [address] [place] [address] [place] Urea nitrogen [Mass/Vol] 30 mg/dL High 9-24 [facility] Comment on above: Order Comment: Zuhairi men Type: BLOOD SPECIMEN Ordering Facility: [facility] Address: [address] [place] [address] Performed By: #### 2 4321-2 #### [facility] CLIA [id number] [address] [place] [address] [place] HbA1c (Bld)on 08-11-2024 Average glucose Estimated from glycated hemoglobin (Bld) [Mass/Vol] 120 mg/dL Normal [facility] Comment on above: Order Comment: Alexus men Type: BLOOD SPECIMEN Ordering Facility: [facility] Address: [address] [place] [address] Result Comment: eAG: (Estimated average glucose) is a calculated value from HgbA1c and is education courses sales representative of the average blood glucose level in the last 2-3 month period. Performed By: #### 1 989-3 #### [facility] CLIA [id number] [address] [place] [address] [place] HbA1c (Bld) [Mass fraction] 5.8 % High 4.3-5.6 [facility] Comment on above: Order Comment: Alexus kelli Type: BLOOD SPECIMEN Ordering Facility: [facility] Address: [address] [place] [address] Result Comment: [place] Diabetes Association guidelines indicate that patients with HgbA1c in the range 5.7-6.4% are at increased risk for development of diabetes, and intervention by lifestyle modification may be beneficial. HgbA1c greater or equal to 6.5% is considered diagnostic of diabetes. Performed By: #### 1 989-3 #### [facility] CLIA [id number] [address] [place] [address] [facility] [place] LIPID PANEL, NONFASTINGon Cholesterol [Mass/Vol] 192 mg/dL Normal <200 [facility] Comment on above: Order Comment: Speci men Type: BLOOD SPECIMEN Ordering Facility: [facility] Address: [address] [place] [address] Result Comment: <200 mg/dL, Desirable 200-239 mg/dL, Borderline high >239 mg/dL, High Performed By: #### L SCOOTER, 2131-10 #### [facility] CLIA [id number] [address] [place] [address] [place] HDL CHOLESTEROL, NF 61 mg/dL Normal >39 [facility] Comment on above: Order Comment: Speci men Type: BLOOD SPECIMEN Ordering Facility: [facility] Address: [address] [place] [address] Result Comment: 40-5 9 mg/dL, Acceptable >59 mg/dL, High: Negative risk factor for coronary heart disease <40 mg/dL, Low: Positive risk factor for coronary heart disease Performed By: #### L SCOOTER, 2131-10 #### [facility] CLIA [id number] [address] [place] [address] LDL CHOLESTEROL CALCULATED, NF 117 mg/dL High <100 [facility] Comment on above: Order Comment: Speci men Type: BLOOD SPECIMEN Ordering Facility: [facility] Address: [address] [place] [address] Result Comment: <100 mg/dL, Optimal 100-129 mg/dL, Near optimal/above optimal 130-159 mg/dL, Borderline high 160-189 mg/dL, High >189 mg/dL, Very high Secondary prevention optimal LDL Cholesterol levels are recommended to be <70 mg/dL LDL cholesterol is calculated using the Amaya-NIH equation. Performed By: #### L SCOOTER, 2131-10 #### [facility] CLIA [id number] [address] [place] LDL/HDL RATIO, NF 1.92 mg/dL Normal <2.54 [facility] Comment on above: Order Comment: Alexus pereira Type: BLOOD SPECIMEN Ordering Facility: [facility] Address: [address] [place] [address] Result Comment: Louise ornelas: 1. National Cholesterol Education Program ATP III Guideline At-A-Glance Quick Desk Reference: National Heart, Lung, and Blood [place]. National Institutes of Health. 2001: NIH Publication No. 01-3305. 2. An International Atherosclerosis Society position paper: global recommendations for the management of dyslipidemia: executive summary, Atherosclerosis. 2014: 232(2):410-413. Performed By: #### L SCOOTER, 2131-10 #### [facility] CLIA [id number] [address] [place] [address] [place] NON HDL CHOL, NF 131 mg/dL High <130 [facility] Comment on above: Order Comment: Alexus pereira Type: BLOOD SPECIMEN Ordering Facility: [facility] Address: [address] [place] [address] Result Comment: <130 mg/dL, Optimal 130-159 mg/dL, Near optimal/above optimal 160-189 mg/dL, Borderline high 190-219 mg/dL, High >219 mg/dL, Very high Secondary prevention optimal non HDL Cholesterol levels are recommended to be <100 mg/dL Performed By: #### L SCOOTER, 2131-10 #### [facility] CLIA [id number] [address] [place] [address] [place] T CHOL/HDL RATIO NF 3.15 mg/dL Normal <5.10 [facility] Comment on above: Order Comment: Alexus pereira Type: BLOOD SPECIMEN Ordering Facility: [facility] Address: [address] [place] [address] Performed By: #### L SCOOTER, 2131-10 #### [facility] CLIA [id number] [address] [place] [address] [place] TRIGLYCERIDES, NF 75 mg/dL Normal <150 [facility] Comment on above: Order Comment: Alexus pereira Type: BLOOD SPECIMEN Ordering Facility: [facility] Address: [address] [place] [address] Result Comment: <150 mg/dL, Normal 150-199 mg/dL, Borderline high 200-499 mg/dL, High >499 mg/dL, Very high Performed By: #### L IPMONTANA, 2131-10 #### [facility] CLIA [id number] [address] [place] [address] [place] VLDL CHOLESTEROL, NF 13 mg/dL Normal <30 [facility] Comment on above: Order Comment: Alexus pereira Type: BLOOD SPECIMEN Ordering Facility: [facility] Address: [address] [place] [address] Performed By: #### L IPMONTANA, 2131-10 #### [facility] CLIA [id number] [address] [place] [address] [place] Vit B12 SerPl-ncon 025 Cobalamin (Vitamin B12) [Mass/Vol] 1573 pg/mL High 232-1245 [facility] Comment on above: Order Comment: Alexus pereira Type: BLOOD SPECIMEN Ordering Facility: [facility] Address: [address] [place] [address] Performed By: #### L IPNF, 2131-10 #### [facility] CLIA [id number] [address] [place] [address] [place] CNOVon 02-16-2024 CNOV Office Visit (FAMPWS) JENIFER PEREZ ([id number]) 1935 [place] Date Time Provider Department 02/16/24 8:00 AM CADE LAUREANO During your visit today, we recorded the following information about you: Pulse Respiration Blood pressure Weight 62/minute 18/minute 130/73 102.5 kg Height 1.727 m Cade Laureano MD 02/16/2024 8:13 PM Signed Jenifer Perez is a 88 year old male here for a Medicare wellness visit. Medicare Health Risk Assessment General Health Very good Exercise: Minutes/Day 0 min Exercise: Days/Week never Alcohol: Daily Use Never Alcohol: Drinks/Day Patient does not drink Alcohol: 6 or more drinks Never Feel off balance No Concerns: Teeth/Dentures No Concerns: Sexual function No Troubled by feelings None of the above Frequency: Eating healthy diet Nearly every day ADLs requiring help None of the above Safety precautions in home/vehicle No Smoke, vape, chews tobacco No Difficulty hearing No Difficulty seeing No Current Providers Specialists: I have reviewed specialist-related care of the patient in the medical record. Current care team: Patient Care Team: Cade Laureano MD as PCP - General (Family Medicine) Maday Beckman APRN.CNP as Political Geographer (Family Medicine) Destiney Pichardo PA-C as Political Geographer (Family Medicine) Medical/Family history review Reviewed and updated problem list, medical/surgical/fam jenna/social history, medications, and allergies. Opioid use review Opioid Medications (last 90 days) No data to display Anxiety/Depression screening PHQ-2 Score: 0 (Lower risk for depression) Recommendation: no further intervention at this time Cognitive screening Score: 5 Cognitive screening reviewed and No further action needed (score 3-5). Functional Observation Was the patient's Timed Up AND Go test unsteady or >= 12 seconds? No Advance Care Planning Surrogate decision maker and/or advance care plan documented Measurements BP 156/78 Pulse 62 Resp 18 Ht 172.7 cm (5' 8) Wt 102.5 kg (226 lb) BMI 34.36 kg/m? Vision Screening: Follows with optometry/ophthalmol ogy Assessment/Plan Medicare annual wellness visit, subsequent (Z00.00) - Counseled on healthy diet and regular exercise - Fall avoidance information provided - Personalized prevention plan provided See Below Chief Complaint Patient presents with: Medicare Wellness Exam HPI Jenifer Perez is a 88 year old male who presents here today for Chronic Medical Conditions. and Medicare Annual Visit. Patient with hx of HTN, hyperlipidemia, CKD, low b12, allergies and those as below. Patient has been doing well. No new issues or concerns. Past medical history, appointments, medications, allergies reviewed. Previous Medical History PAST MEDICAL HISTORY Diagnosis Date Allergic rhinitis 07/19/2022 Basal cell carcinoma of skin 05/09/2015 Right ear 02/2015 by Phong Bonilla. Benign non-nodular prostatic hyperplasia without lower urinary tract symptoms 11/08/2014 Elevated blood sugar 03/03/2019 Essential hypertension 11/08/2014 08/14/2016: Home BP Cuff Validated. 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 Renal insufficiency 01/29/2016 Advised to avoid NSAID's 01/29/2016 SPINAL STENOSIS-LUMBAR 05/21/2000 Stage 3a chronic kidney disease (HCC) 01/29/2016 Advised to avoid NSAID's 01/29/2016 Previous Surgical History PAST SURGICAL HISTORY Procedure Laterality Date ARTHRP ACETBLR/PROX FEM PROSTC AGRFT/ALGRFT 09/21/13 right PAST SURGICAL HISTORY OF 02/2015 skin cancer right ear TOTAL HIP REPLACEMENT 01/2014 Lt Family History FAMILY HISTORY Problem Relation Age of Onset Alzheimer's Disease Mother Arthritis Mother Cancer Father wicho cell - face Lipids Father Hypertension Father Diabetes Brother Cancer Brother lung Heart Brother Lipids Brother Hypertension Brother other (arthritis) Daughter psoratic Patient Allergies ALLERGIES Allergen Reactions Altace [Ramipril] Cough Cough Ciprofloxacin Diarrhea Hctz [Thiazides] Other: See Comments hypokalemia Current Medications Current Outpatient Medications on File Prior to Visit Medication Sig verapamil SR (CALAN SR) 240 mg CR tablet Take 1 tablet by mouth two times a day. fenofibrate nanocrystallized (TRICOR) 145 mg tablet Take 1 tablet by mouth once daily. Ipratropium [place] (ATROVENT) 21 mcg (0.03 %) nasal spray Use 2 Sprays in the nose every 12 hours. guaiFENesin (MUCINEX) 600 mg 12 hr tablet Take 2 tablets by mouth two times a day. montelukast (SINGULAIR) 10 mg tablet Take 1 tablet by mouth daily at bedtime. MELATONIN ORAL Take 1 mg by mouth daily at bedtime. polyethylene gly (more content not included)... Normal [facility] CBC W Auto Differential pane l (Bld)on 02-12-2024 Basophils (Bld) [#/Vol] 0.04 10*3/uL Normal <0.11 [facility] Comment on above: Order Comment: Speci men Type: BLOOD SPECIMEN Ordering Facility: [facility] Address: [address] [place] [address] Performed By: #### 5 7021-8 #### [facility] CLIA [id number] [address] [place] [address] [place] Basophils/100 WBC (Bld) 0.5 % Normal [facility] Comment on above: Order Comment: Speci men Type: BLOOD SPECIMEN Ordering Facility: [facility] Address: [address] [place] [address] Performed By: #### 5 7021-8 #### [facility] CLIA [id number] [address] [place] [address] [place] Differential cell count method Nom (Bld) Auto Normal [facility] Comment on above: Order Comment: Speci men Type: BLOOD SPECIMEN Ordering Facility: [facility] Address: [address] [place] [address] Performed By: #### 5 7021-8 #### [facility] CLIA [id number] [address] [place] [address] [place] Eosinophils (Bld) [#/Vol] 0.17 10*3/uL Normal <0.46 [facility] Comment on above: Order Comment: Speci men Type: BLOOD SPECIMEN Ordering Facility: [facility] Address: [address] [place] [address] Performed By: #### 5 7021-8 #### [facility] CLIA [id number] [address] [place] [address] [place] Eosinophils/100 WBC (Bld) 2.1 % Normal [facility] Comment on above: Order Comment: Speci men Type: BLOOD SPECIMEN Ordering Facility: [facility] Address: [address] [place] [address] Performed By: #### 5 7021-8 #### [facility] CLIA [id number] [address] [place] [address] [place] Erythrocyte distribution width (RBC) [Ratio] 12.7 % Normal 11.5-15.0 [facility] Comment on above: Order Comment: Speci men Type: BLOOD SPECIMEN Ordering Facility: [facility] Address: [address] [place] [address] Performed By: #### 5 7021-8 #### [facility] CLIA [id number] [address] [place] [address] [place] Hematocrit (Bld) [Volume fraction] 47.2 % Normal 39.0-51.0 [facility] Comment on above: Order Comment: Speci men Type: BLOOD SPECIMEN Ordering Facility: [facility] Address: [address] [place] [address] Performed By: #### 5 7021-8 #### [facility] CLIA [id number] [address] [place] [address] [place] Hemoglobin (Bld) [Mass/Vol] 15.8 g/dL Normal 13.0-17.0 [facility] Comment on above: Order Comment: Speci men Type: BLOOD SPECIMEN Ordering Facility: [facility] Address: [address] [place] [address] Performed By: #### 5 7021-8 #### [id number] [address] [place] [address] [place] Immature granulocytes (Bld) [#/Vol] 0.09 10*3/uL Normal <0.10 [facility] Comment on above: Order Comment: Speci men Type: BLOOD SPECIMEN Ordering Facility: [facility] Address: [address] [place] [address] Performed By: #### 5 7021-8 #### [facility] CLIA [id number] [address] [place] [address] [place] Immature granulocytes/100 WBC (Bld) 1.1 % Normal [facility] Comment on above: Order Comment: Speci men Type: BLOOD SPECIMEN Ordering Facility: [facility] Address: [address] [place] [address] Performed By: #### 5 7021-8 #### [facility] CLIA [id number] [address] [place] [address] [place] Lymphocytes (Bld) [#/Vol] 2.23 10*3/uL Normal 1.00-4.00 [facility] Comment on above: Order Comment: Speci men Type: BLOOD SPECIMEN Ordering Facility: [facility] Address: [address] [place] [address] Performed By: #### 5 7021-8 #### [facility] CLIA [id number] [address] [place] [address] [place] Lymphocytes/100 WBC (Bld) 27.7 % Normal [facility] Comment on above: Order Comment: Speci men Type: BLOOD SPECIMEN Ordering Facility: [facility] Address: [address] [place] [address] Performed By: #### 5 7021-8 #### [facility] CLIA [id number] [address] [place] [address] [place] MCH (RBC) [Entitic mass] 31.9 pg Normal 26.0-34.0 [facility] Comment on above: Order Comment: Speci men Type: BLOOD SPECIMEN Ordering Facility: [facility] Address: [address] [place] [address] Performed By: #### 5 7021-8 #### [facility] CLIA [id number] [address] [place] [address] [place] MCHC (RBC) [Mass/Vol] 33.5 g/dL Normal 30.5-36.0 [facility] Comment on above: Order Comment: Speci men Type: BLOOD SPECIMEN Ordering Facility: [facility] Address: [address] [place] [address] Performed By: #### 5 7021-8 #### [facility] CLIA [id number] [address] [place] [address] [place] MCV (RBC) [Entitic vol] 95.4 fL Normal 80.0-100.0 [facility] Comment on above: Order Comment: Speci men Type: BLOOD SPECIMEN Ordering Facility: [facility] Address: [address] [place] [address] Performed By: #### 5 7021-8 #### [facility] CLIA [id number] [address] [place] [address] [place] Monocytes (Bld) [#/Vol] 0.74 10*3/uL Normal <0.87 [facility] Comment on above: Order Comment: Speci men Type: BLOOD SPECIMEN Ordering Facility: [facility] Address: [address] [place] [address] Performed By: #### 5 7021-8 #### [facility] CLIA [id number] [address] [place] [address] [place] Monocytes/100 WBC (Bld) 9.2 % Normal [facility] Comment on above: Order Comment: Speci men Type: BLOOD SPECIMEN Ordering Facility: [facility] Address: [address] [place] [address] Performed By: #### 5 7021-8 #### [facility] CLIA [id number] [address] [place] [address] [place] Neutrophils (Bld) [#/Vol] 4.78 10*3/uL Normal 1.45-7.50 [facility] Comment on above: Order Comment: Speci men Type: BLOOD SPECIMEN Ordering Facility: [facility] Address: [address] [place] [address] Performed By: #### 5 7021-8 #### [facility] CLIA [id number] [address] [place] [address] [place] Neutrophils/100 WBC (Bld) 59.4 % Normal [facility] Comment on above: Order Comment: Speci men Type: BLOOD SPECIMEN Ordering Facility: [facility] Address: [address] [place] [address] Performed By: #### 5 7021-8 #### [facility] CLIA [id number] [address] [place] [address] [place] Nucleated RBC (Bld) [#/Vol] 10*3/uL Normal <0.01 [facility] Comment on above: Order Comment: Speci men Type: BLOOD SPECIMEN Ordering Facility: [facility] Address: [address] [place] [address] Performed By: #### 5 7021-8 #### [facility] CLIA [id number] [address] [place] [address] [place] Nucleated RBC/100 WBC (Bld) [Ratio] 0.0 /100 WBC Normal [facility] Comment on above: Order Comment: Speci men Type: BLOOD SPECIMEN Ordering Facility: [facility] Address: [address] [place] [address] Performed By: #### 5 7021-8 #### [facility] CLIA [id number] [address] [place] [address] [place] Platelet mean volume (Bld) [Entitic vol] 9.7 fL Normal 9.0-12.7 [facility] Comment on above: Order Comment: Speci men Type: BLOOD SPECIMEN Ordering Facility: [facility] Address: [address] [place] [address] Performed By: #### 5 7021-8 #### [facility] CLIA [id number] [address] [place] [address] [place] Platelets (Bld) [#/Vol] 317 10*3/uL Normal 150-400 [facility] Comment on above: Order Comment: Speci men Type: BLOOD SPECIMEN Ordering Facility: [facility] Address: [address] [place] [address] Performed By: #### 5 7021-8 #### [facility] CLIA [id number] [address] [place] [address] [place] RBC (Bld) [#/Vol] 4.95 10*6/uL Normal 4.20-6.00 [facility] Comment on above: Order Comment: Speci men Type: BLOOD SPECIMEN Ordering Facility: [facility] Address: [address] [place] [address] Performed By: #### 5 7021-8 #### [facility] CLIA [id number] [address] [place] [address] [place] WBC (Bld) [#/Vol] 8.05 10*3/uL Normal 3.70-11.00 [facility] Comment on above: Order Comment: Speci men Type: BLOOD SPECIMEN Ordering Facility: [facility] Address: [address] [place] [address] Performed By: #### 5 7021-8 #### [facility] CLIA [id number] [address] [place] [address] [place] Comprehensive metabolic 2000 panelon 02-12-2024 Albumin [Mass/Vol] 4.2 g/dL Normal 3.9-4.9 [facility] Comment on above: Order Comment: Speci men Type: BLOOD SPECIMEN Ordering Facility: [facility] Address: [address] [place] [address] Performed By: #### 2 4323-8 #### [facility] CLIA [id number] [address] [place], [place] [address] [place] ALP [Catalytic activity/Vol] 45 U/L Normal 38-113 [facility] Comment on above: Order Comment: Speci men Type: BLOOD SPECIMEN Ordering Facility: [facility] Address: [address] [place] [address] Performed By: #### 2 4323-8 #### [facility] CLIA [id number] [address] [place] [address] [place] ALT [Catalytic activity/Vol] 17 U/L Normal 10-54 [facility] Comment on above: Order Comment: Speci men Type: BLOOD SPECIMEN Ordering Facility: [facility] Address: [address] [place] [address] Performed By: #### 2 4323-8 #### [facility] CLIA [id number] [address] [place] [address] [place] Anion gap [Moles/Vol] 13 mmol/L Normal 8-15 [facility] Comment on above: Order Comment: Speci men Type: BLOOD SPECIMEN Ordering Facility: [facility] Address: [address] [place] [address] Performed By: #### 2 4323-8 #### [facility] CLIA [id number] [address] [place] [address] [place] AST [Catalytic activity/Vol] Normal [facility] Comment on above: Order Comment: Speci men Type: BLOOD SPECIMEN Ordering Facility: [facility] Address: [address] [place] [address] Result Comment: Unab le to assay. Specimen significantly hemolyzed. Performed By: #### 2 4323-8 #### [facility] CLIA [id number] [address] [place] [address] [place] Bilirubin [Mass/Vol] 0.5 mg/dL Normal 0.2-1.3 [facility] Comment on above: Order Comment: Speci men Type: BLOOD SPECIMEN Ordering Facility: [facility] Address: [address] [place] [address] Performed By: #### 2 4323-8 #### [facility] CLIA [id number] [address] [place] [address] [place] Calcium [Mass/Vol] 9.4 mg/dL Normal 8.5-10.2 [facility] Comment on above: Order Comment: Speci men Type: BLOOD SPECIMEN Ordering Facility: [facility] Address: [address] [place] [id number] Performed By: #### 2 4323-8 #### [facility] CLIA [id number] [address] [place] [address] [place] Chloride [Moles/Vol] 106 mmol/L Normal 98-107 [facility] Comment on above: Order Comment: Speci men Type: BLOOD SPECIMEN Ordering Facility: [facility] Address: [address] [place] [place] [id number] Performed By: #### 2 4323-8 #### [facility] CLIA [id number] [address] [place] [address] [place] CO2 [Moles/Vol] 19 mmol/L Low 22-30 [facility] Comment on above: Order Comment: Speci men Type: BLOOD SPECIMEN Ordering Facility: [facility] Address: [address] [place] [address] Performed By: #### 2 4323-8 #### [facility] CLIA [id number] [address] [place] [address] [place] Creatinine [Mass/Vol] 1.29 mg/dL High 0.73-1.22 [facility] Comment on above: Order Comment: Speci men Type: BLOOD SPECIMEN Ordering Facility: [facility] Address: [address] [place] [address] Performed By: #### 2 4323-8 #### [facility] CLIA [id number] [address] [place] [address] [place] Creatinine and Glomerular filtration rate.predicted panel (S/P/Bld) 54 mL/min/1.73m??? Low >=60 [facility] Comment on above: Order Comment: Alexus pereira Type: BLOOD SPECIMEN Ordering Facility: [facility] Address: [address] [place] [address] Result Comment: Trinity mated Glomerular Filtration Rate (eGFR) is calculated using the 2020 CKD-EPI creatinine equation. This equation utilizes serum creatinine, sex, and age as parameters. The creatinine assay has traceable calibration to isotope dilution-mass spectrometry. Refer to KDIGO guidelines for clinical interpretation. In patients with unstable renal function, e.g. those with acute kidney injury, the eGFR may not accurately reflect actual GFR. Performed By: #### 2 4323-8 #### [id number] [address] [place] [address] [place] Glucose [Mass/Vol] 100 mg/dL High 74-99 [facility] Comment on above: Order Comment: Alexus pereira Type: BLOOD SPECIMEN Ordering Facility: [facility] Address: [address] [place] [address] Result Comment: The [place] Diabetes Association (ADA) provides guidance for cutoff values for fasting glucose and random glucose. The ADA defines fasting as no caloric intake for at least 8 hours. Fasting plasma glucose results between 100 to 125 mg/dL indicate increased risk for diabetes (prediabetes). Fasting plasma glucose results greater than or equal to 126 mg/dL meet the criteria for diagnosis of diabetes. In the absence of unequivocal hyperglycemia, results should be confirmed by repeat testing. In a patient with classic symptoms of hyperglycemia or hyperglycemic crisis, random plasma glucose results greater than or equal to 200 mg/dL meet the criteria for diagnosis of diabetes. Reference: Standards of Medical Care in Diabetes 2016, [place] Diabetes Association. Diabetes Care. 2016.39(Suppl 1). Performed By: #### 2 4323-8 #### [facility] [id number] [address] [place] [address] [place] Potassium [Moles/Vol] 5.1 mmol/L Normal 3.7-5.1 [facility] Comment on above: Order Comment: Speci men Type: BLOOD SPECIMEN Ordering Facility: [facility] Address: [address] [place] [address] Performed By: #### 2 4323-8 #### [facility] CLIA [id number] [address] [place] [address] [place] Protein [Mass/Vol] 6.7 g/dL Normal 6.3-8.0 [facility] Comment on above: Order Comment: Speci men Type: BLOOD SPECIMEN Ordering Facility: [facility] Address: [address] [place] [address] Performed By: #### 2 4323-8 #### [facility] CLIA [id number] [address] [place] [address] [place] Sodium [Moles/Vol] 138 mmol/L Normal 136-144 [facility] Comment on above: Order Comment: Speci men Type: BLOOD SPECIMEN Ordering Facility: [facility] Address: [address] [place] [address] Performed By: #### 2 4323-8 #### [facility] CLIA [id number] [address] [place] [address] [place] Urea nitrogen [Mass/Vol] 27 mg/dL High 9-24 [facility] Comment on above: Order Comment: Speci men Type: BLOOD SPECIMEN Ordering Facility: [facility] Address: [address] [place] [address] Performed By: #### 2 4323-8 #### [facility] CLIA [id number] [address] [place] [address] [place] HbA1c (Bld)on 02-12-2024 Average glucose Estimated from glycated hemoglobin (Bld) [Mass/Vol] 111 mg/dL Normal [facility] Comment on above: Order Comment: Speci men Type: BLOOD SPECIMEN Ordering Facility: [facility] Address: [address] [place] [address] Result Comment: eAG: (Estimated average glucose) is a calculated value from HgbA1c and is education courses sales representative of the average blood glucose level in the last 2-3 month period. Performed By: #### 1 989-3 #### [facility] CLIA [id number] [address] [place] [address] [place] HbA1c (Bld) [Mass fraction] 5.5 % Normal 4.3-5.6 [facility] Comment on above: Order Comment: Alexus pereira Type: BLOOD SPECIMEN Ordering Facility: [facility] Address: [address] [place] [address] Result Comment: [place] Diabetes Association guidelines indicate that patients with HgbA1c in the range 5.7-6.4% are at increased risk for development of diabetes, and intervention by lifestyle modification may be beneficial. HgbA1c greater or equal to 6.5% is considered diagnostic of diabetes. Performed By: #### 1 989-3 #### [facility] CLIA [id number] [address] [place] [address] [place] LIPID PANEL, NONFASTINGon Cholesterol [Mass/Vol] 207 mg/dL High <200 [facility] Comment on above: Order Comment: Alexus pereira Type: BLOOD SPECIMEN Ordering Facility: [facility] Address: [address] [place] [address] Result Comment: <200 mg/dL, Desirable 200-239 mg/dL, Borderline high >239 mg/dL, High Performed By: #### L IPNF #### [facility] CLIA [id number] [address] [place] [address] [place] HDL CHOLESTEROL, NF 58 mg/dL Normal >39 [facility] Comment on above: Order Comment: Alexus pereira Type: BLOOD SPECIMEN Ordering Facility: [facility] Address: [address] [place] [address] Result Comment: 40-5 9 mg/dL, Acceptable >59 mg/dL, High: Negative risk factor for coronary heart disease <40 mg/dL, Low: Positive risk factor for coronary heart disease Performed By: #### L IPNF #### [facility] CLIA [id number] [address] [place] [address] [place] LDL CHOLESTEROL, NF 133 mg/dL High <100 [facility] Comment on above: Order Comment: Alexus [facility] Type: BLOOD SPECIMEN Ordering Facility: [facility] Address: [address] [place] [address] Result Comment: <100 mg/dL, Optimal 100-129 mg/dL, Near optimal/above optimal 130-159 mg/dL, Borderline high 160-189 mg/dL, High >189 mg/dL, Very high Secondary prevention optimal LDL Cholesterol levels are recommended to be < 70 mg/dL Performed By: #### L IPNF #### [facility] CLIA [id number] [address] [place] [address] [place] LDL/HDL RATIO, NF 2.29 mg/dL Normal <2.54 [facility] Comment on above: Order Comment: Alexus pereira Type: BLOOD SPECIMEN Ordering Facility: [facility] Address: [address] [place] [address] Result Comment: Louise ornelas: 1. National Cholesterol Education Program ATP III Guideline At-A-Glance Quick Desk Reference: National Heart, Lung, and Blood [place]. National Institutes of Health. 2001: NIH Publication No. 01-3305. 2. An International Atherosclerosis Society position paper: global recommendations for the management of dyslipidemia: executive summary, Atherosclerosis. 2014: 232(2):410-413. Performed By: #### L IPNF #### [facility] CLIA [id number] [address] [place] [address] [place] NON HDL CHOL, NF 149 mg/dL High <130 [facility] Comment on above: Order Comment: Alexus pereira Type: BLOOD SPECIMEN Ordering Facility: [facility] Address: [address] [place] [address] Result Comment: <130 mg/dL, Optimal 130-159 mg/dL, Near optimal/above optimal 160-189 mg/dL, Borderline high 190-219 mg/dL, High >219 mg/dL, Very high Secondary prevention optimal non HDL Cholesterol levels are recommended to be <100 mg/dL Performed By: #### L IPNF #### [facility] CLIA [id number] [address] [place] [address] [place] T CHOL/HDL RATIO NF 3.57 mg/dL Normal <5.10 [facility] Comment on above: Order Comment: Zuhairi men Type: BLOOD SPECIMEN Ordering Facility: [facility] Address: [address] [place] [address] Performed By: #### L IPNF #### [facility] CLIA [id number] [address] [place] [address] [place] TRIGLYCERIDES, NF 78 mg/dL Normal <150 [facility] Comment on above: Order Comment: Alexus pereira Type: BLOOD SPECIMEN Ordering Facility: [facility] Address: [address] [place] [address] Result Comment: <150 mg/dL, Normal 150-199 mg/dL, Borderline high 200-499 mg/dL, High >499 mg/dL, Very high Performed By: #### L IPNF #### [facility] CLIA [id number] [address] [place] [address] [place] VLDL CHOLESTEROL, NF 16 mg/dL Normal <30 [facility] Comment on above: Order Comment: Alexus pereira Type: BLOOD SPECIMEN Ordering Facility: [facility] Address: [address] [place] [address] Performed By: #### L IPNF #### [facility] CLIA [id number] [address] [place] [address] OF [place] Taylor 08-25-2023 SARBJITN Telephone (FAMPWS) JENIFER PEREZ ([id number]) 1935 M Date Time Provider Department 08/25/23 CADE LAUREANO During your visit today, we recorded the following information about you: Marita Krishnan RN 08/25/2023 2:46 PM Signed Patient calling to update ERNA Cheung that he saw Dr. Patel, ENT, as advised. States provider recommended he take Mucinex twice daily. He also states the provider ordered him Ipratropium [place] nasal spray, 2 sprays each nostril twice daily and he was advised to ask Destiney if this nasal spray would be ok to use with his other medications? Please advise patient. [phone]. Thank you. Destiney Pichardo PA-C 08/25/2023 3:02 PM Signed No concerns from those medications. Nelly Lindo RN 08/25/2023 3:21 PM Signed Pt called and is notified of providers message. Pt voices understanding. Nelly Lindo RN Allergies As of Date: 08/25/2023 Noted Allergy Reaction ALTACE (RAMIPRIL) 01/09/2009 3 - Cough Comments: Cough CIPROFLOXACIN 05/09/2015 6 - Diarrhea HCTZ (THIAZIDES) 04/08/2018 14 - Other: See Comments Comments: hypokalemia Date Reviewed: 07/22/2023 Reviewed by: Maggie Posey LPN - Fully Assessed Reason for Visit: Patient Question [5240] Order(s):Ipratropium [place] (ATROVENT) 21 mcg (0.03 %) nasal sprayUse 2 Sprays in the nose every 12 hours.Disp: Rfl: guaiFENesin (MUCINEX) 600 mg 12 hr tabletTake 2 tablets by mouth two times a day.Disp: Rfl: Prescriptions as of 08/25/2023 - Ipratropium [place] (ATROVENT) 21 mcg (0.03 %) nasal spray Use 2 Sprays in the nose every 12 hours. - guaiFENesin (MUCINEX) 600 mg 12 hr tablet Take 2 tablets by mouth two times a day. - montelukast (SINGULAIR) 10 mg tablet Take 1 tablet by mouth daily at bedtime. - MELATONIN ORAL Take 1 mg by mouth daily at bedtime. - polyethylene glycol 3350 (MIRALAX ORAL) Take by mouth. - verapamil SR (CALAN SR) 240 mg CR tablet Take 1 tablet by mouth two times a day. - spironolactone (ALDACTONE) 25 mg tablet Take 1 tablet by mouth once daily. - traZODone (DESYREL) 50 mg tablet Take 1 tablet by mouth daily at bedtime. - cyanocobalamin (VITAMIN B-12) 1,000 mcg tab Take 1 tablet by mouth once daily. - fenofibrate nanocrystallized (TRICOR) 145 mg tablet Take 1 tablet by mouth once daily. - loratadine (CLARITIN ORAL) Take by mouth. - naproxen sodium 220 mg cap Take by mouth as directed. - latanoprost, PF, 0.005 % drop Use in eyes. - aspirin, enteric coated (ADULT LOW DOSE ASPIRIN) 81 mg EC tablet Take 1 tablet by mouth once daily. 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] 11/05/2013 Essential hypertension [I10] 11/08/2014 Benign non-nodular prostatic hyperplasia withou*11/08/2014 Basal cell carcinoma of skin [C44.91] 05/09/2015 Disorder of prostate [N42.9] 05/09/2015 Stage 3a chronic kidney disease (HCC) [N18.31] 01/29/2016 Medicare annual wellness visit, subsequent [Z00*11/26/2017 Hypokalemia [E87.6] 04/02/2018 Ex-smoker [Z87.891] 03/03/2019 Elevated blood sugar [R73.9] 03/03/2019 Medication management [Z79.899] 09/01/2019 Advance directive discussed with patient [Z71.8*01/17/2022 Allergic rhinitis [J30.9] 07/19/2022 Low serum vitamin B12 [E53.8] 05/14/2023 Chronic insomnia [F51.04] 07/22/2023 Prescriptions ordered this encounter Disp Refills Start End IPRATROPIUM BROMIDE 21 MCG (0.03 %) * 08/25/2023 Class: Med Update Route: NASAL Sig: Use 2 Sprays in the nose every 12 hours. GUAIFENESIN ER 600 MG TABLET, EXTEND* 08/25/2023 Class: Med Update Route: ORAL Sig: Take 2 tablets by mouth two times a day. Encounter Status:Closed by NELLY LINDO on 08/25/23 Normal [facility] Basic metabolic 2000 panelon 05-13-2023 Anion gap [Moles/Vol] 13 mmol/L 9 - 18 mmol/L [facility] Calcium [Mass/Vol] 10.3 mg/dL High 8.5 - 10. 2 mg/dL [facility] Chloride [Moles/Vol] 103 mmol/L 97 - 10 5 mmol/L [facility] CO2 [Moles/Vol] 22 mmol/L 22 - 30 mmol/L [facility] Creatinine [Mass/Vol] 1.59 mg/dL High 0.73 - 1.22 mg/dL [facility] Estimated Glomerular Filtration Rate 42 mL/min/1.73m Low >=60 mL/min/1.73m [facility] Glucose [Mass/Vol] 93 mg/dL 74 - 99 mg/dL [facility] Potassium [Moles/Vol] 5.2 mmol/L High 3.7 - 5.1 mmol/L [facility] Sodium [Moles/Vol] 138 mmol/L 136 - 144 mmol/L [facility] Urea nitrogen [Mass/Vol] 30 mg/dL High 9 - 24 mg/d L [facility] CBC W Auto Differential pane l (Bld)on 05-13-2023 Basophils (Bld) [#/Vol] 0.04 10*3/uL <0.11 k/uL [facility] Basophils/100 WBC (Bld) 0.4 % C [facility] Differential cell count method Nom (Bld) Auto [facility] Eosinophils (Bld) [#/Vol] 0.12 10*3/uL <0.46 k/uL [facility] Eosinophils/100 WBC (Bld) 1.2 % [facility] Erythrocyte distribution width (RBC) [Ratio] 13.1 % 11.5 - 15.0 % [facility] Hematocrit (Bld) [Volume fraction] 47.6 % 39.0 - 51.0 % [facility] Hemoglobin (Bld) [Mass/Vol] 15.6 g/dL 13.0 - 17.0 g/dL [facility] Immature granulocytes (Bld) [#/Vol] 0.10 10*3/uL High <0.10 k/uL [facility] Immature granulocytes/100 WBC (Bld) 1.0 % [facility] Lymphocytes (Bld) [#/Vol] 2.29 10*3/uL 1.00 - 4.00 k/uL [facility] Lymphocytes/100 WBC (Bld) 23.2 % [facility] MCH (RBC) [Entitic mass] 32.3 pg 26. 0 - 34.0 pg [facility] MCHC (RBC) [Mass/Vol] 32.8 g/dL 30.5 - 36.0 g/dL [facility] MCV (RBC) [Entitic vol] 98.6 fL 80.0 - 100.0 fL [facility] Monocytes (Bld) [#/Vol] 0.94 10*3/uL High <0.87 k/uL [facility] Monocytes/100 WBC (Bld) 9.5 % [facility] Neutrophils (Bld) [#/Vol] 6.39 10*3/uL 1.45 - 7.50 k/uL [facility] Neutrophils/100 WBC (Bld) 64.7 % [facility] Nucleated RBC (Bld) [#/Vol] <0.01 k/uL [facility] Nucleated RBC/100 WBC (Bld) [Ratio] 0.0 /100 WBC [facility] Platelet mean volume (Bld) [Entitic vol] 9.8 fL 9.0 - 12.7 fL [facility] Platelets (Bld) [#/Vol] 428 10*3/uL High 150 - 400 k/uL [facility] RBC (Bld) [#/Vol] 4.83 10*6/uL 4.20 - 6.0 0 m/uL [facility] WBC (Bld) [#/Vol] 9.88 10*3/uL 3.70 - 11. 00 k/uL [facility] FOLATE SERUMon 05-13-2023 Folate [Mass/Vol] 5.3 ng/mL >4.7 ng/mL [facility] Iron and Iron binding capaci ty panelon 05-13-2023 Iron [Mass/Vol] 155 ug/dL 41 - 186 ug/dL [facility] Iron binding capacity [Mass/Vol] 310 ug/dL 232 - 386 ug/dL [facility] Iron/TIBC [Molar ratio] 50.0 % 15.0 - 57.0 % [facility] TSH BLDon 05-13-2023 TSH Qn 3.350 m[IU]/L 0.270 - 4.200 mIU/L [facility] VITAMIN B12 BLOODon 05-13-19 Cobalamin (Vitamin B12) [Mass/Vol] 267 pg/mL 232 - 1,245 pg/mL [facility] Emergency Department Summary on 11-29-2021 Emergency Department Summary [facility] Medical Records Department [address] [place] [address] Emergency Department Summary 11/29/21 MR#: [id number] Acct: [id number] Name: JENIFER PEREZ Rep #: [id number] : 1935 86 From: Kristian Andrews PCP: Dr. Cade Laureano MD Status:DEP ER Location: ED HPI History of Present Illness Chief Complaint: Cold Sx Informant: patient Narrative Narrative: Presents for treatment for COVID-19. +3 days ago he started having symptoms today feel sinus congestion mild cough. No fevers headache myalgias vomiting or diarrhea. He is COVID vaccinated with 2 boosters last time this past May. No COVID infections in the past. Home test yesterday negative today was positive. Tried calling PCP office they are unable to get him in and sent him to the ED. He denies any kidney issues. History of hypertension hyperlipidemia currently not on statin having side effects. Reports his is on Paxlovid, and is getting better therefore would like this treatment. [facility] Medical History (Updated 11/29/21 @ 12:43 by Polina Wang) Hypertension Home Medications fenofibrate nanocrystallized 145 mg tablet 145 mg PO DAILY 09/08/13 [History Last Taken Unknown] verapamil 240 mg 24 hr capsule,extended release (Verelan) 240 mg PO BID 09/08/13 [History Last Taken 02/02/14 08:30] aspirin 81 mg tablet,delayed release 81 mg PO DAILY@0800 ##1 09/23/13 [Rx Last Taken 01/12/14] Valsartan/Hydrochlor othiazide [Diovan Hct 320-25 Mg Tablet] 1 tab PO DAILY 01/03/14 [History Last Taken Unknown] hydrocodone-acetamin ophen 5-325mg 5mg-325mg 1 - 2 tab PO Q6H PRN PRN MILD-MODERATE (PAIN SCALE 1-5) ##90 02/04/14 [Rx Last Taken Unknown] nirmatrelvir 300 mg (150 mg x2)-ritonavir 100 mg tablet,dose pack(EUA) (Paxlovid) See Rx Instructions PO .COMPLEX #30 tabs 11/29/21 [Rx Last Taken Unknown] Allergy/AdvReac Type Severity Reaction Status Date / Time Uxqqsgb-TTO-TfK Reductase Allergy Other Verified 11/29/21 12:08 Inhibitor [Hbqntbf-Bla-Qwy Reductase Inhibitor] Social History Smoking Status: Never smoker ROS ROS ED Constitutional Constitutional ED: Denies chills, fever(s) or sweats Eyes Eyes: Denies change in vision ENT ENT ED: Reports other Details: Sinus congestion ; Denies dysphagia or sore throat Cardiovascular Cardiovascular: Denies chest pain, leg edema, palpitations or racing heartbeat Respiratory/Chest Respiratory/Chest: Reports cough; Denies dyspnea or dyspnea on exertion Gastrointestinal Gastrointestinal: Denies abdominal pain, diarrhea, nausea or vomiting Genitourinary Genitourinary ED: Denies dysuria, hematuria or urinary frequency Musculoskeletal Musculoskeletal: Denies back pain, extremity pain or neck pain Integumentary Denies rash or wounds Neurologic Neurologic: Denies headache(s), paresthesias or weakness EXAM Physical Exam Const Vital Signs: 11/29/21 12:08 11/29/21 12:41 Temperature 96.8 F L Temperature Source Temporal Pulse Rate 89 Respiratory Rate 16 Respiratory Effort Normal Respiratory Pattern Normal Blood Pressure 174/85 H Blood Pressure Mean 114 Pulse Ox 98 Oxygen Delivery Method Room Air Positive well nourished and well developed General Appearance ED: well developed and NAD HEENT Reports moist mucous membranes normocephalic and atraumatic Eyes PERRL, EOMs intact bilaterally and conjunctivae normal General Eye ED: Yes normal appearance of both eyes Neck no lymphadenopathy and supple General: Negative for tenderness Chest Wall Chest: Negative for tenderness Resp normal respiratory effort and normal air movement Effort and Inspection: symmetric chest movement; Negative for respiratory distress Cardio regular rate, regular rhythm and no murmurs Peripheral Pulses: pulses 2+ throughout GI normal to inspection, nondistended, normoactive bowel sounds and non-tender Palpation: Negative for guarding or rebound tenderness present Back/Spine no CVA tenderness and no thoracic nor lumbar tenderness Extremity normal to inspection General Extremety ED: Negative for edema or tenderness General Extremity: Negative for edema Neuro oriented x3 and no sensory deficits noted Sensorium / Orientation: awake and alert Skin no rashes or lesions noted and no wounds MDM MDM MDM Narrative Medical decision making narrative: Patient nontoxic pulse ox 98% room air. Blood pressure 174/85 on blood pressure medicines. Asymptomatic. No respiratory distress. Prescription for Paxlovid sent to his pharmacy. Discussed potential rebound symptoms. Outpatient follow-up. Initially seen in his [facility], last orthopedic surgery was 6 years ago. He showed me a med list he is only on baby aspirin. This was clarified. Discharge Plan T (more content not included)... Normal [facility] Vital Signs Date Time Vital Sign Value Performing Clinician Facility 09-21-2024 14:29-0400 Body temperature 98 [degF] Dr. Cade Laureano MD Work Phone: [facility] 09-21-2024 14:29-0400 Diastolic blood pressure 81 mm[Hg] Dr. Cade Laureano MD Work Phone: [facility] 09-21-2024 14:29-0400 Heart rate 81 /min Dr. Cade Laureano MD Work Phone: [facility] 09-21-2024 14:29-0400 Respiratory rate 14 /min Dr. Cade Laureano MD Work Phone: [facility] 09-21-2024 14:29-0400 SaO2% (BldA) [Mass fraction] 98 % Dr. Cade Laureano MD Work Phone: [facility] 09-21-2024 14:29-0400 Systolic blood pressure 135 mm[Hg] Dr. Cade Laureano MD Work Phone: [facility] 09-21-2024 09:35-0400 Body height 170.[address] Cade Laureano MD Work Phone: [facility] 09-21-2024 09:35-0400 Body mass index (BMI) [Ratio] 34.7 kg/m2 Dr. Cade Laureano MD Work Phone: [facility] 09-21-2024 09:35-0400 Body weight 100.[address] Cade Laureano MD Work Phone: [facility] 08-16-2024 09:37-0400 Diastolic blood pressure 78 mm[Hg] Destiney Pichardo PA-C Work Phone: [facility] 08-16-2024 09:37-0400 Heart rate 82 /min Destineysarah Pichardo PA-C Work Phone: [facility] 08-16-2024 09:37-0400 Systolic blood pressure 125 mm[Hg] Destiney Pichardo PA-C Work Phone: [facility] 08-16-2024 09:28-0400 Body mass index (BMI) [Ratio] 33.82 kg/m2 Destiney Pichardo PA-C Work Phone: [facility] 08-16-2024 09:28-0400 Body weight 100.88 kg Destiney Pichardo PA-C Work Phone: [facility] 08-16-2024 09:28-0400 SaO2% (BldA) [Mass fraction] 97 % Destiney Pichardo PA-C Work Phone: [facility] 02-16-2024 08:28-0500 Diastolic blood pressure 73 mm[Hg] Cade Laureano MD Work Phone: [facility] 02-16-2024 08:28-0500 Systolic blood pressure 130 mm[Hg] Cade Laureano MD Work Phone: [facility] 02-16-2024 07:56-0500 Body height 172.7 cm Cade Laureano MD Work Phone: [facility] 02-16-2024 07:56-0500 Body mass index (BMI) [Ratio] 34.36 kg/m2 Cade Laureano MD Work Phone: [facility] 02-16-2024 07:56-0500 Body weight 102.51 kg Cade Laureano MD Work Phone: [facility] 02-16-2024 07:56-0500 Heart rate 62 /min Cade Laureano MD Work Phone: [facility] 02-16-2024 07:56-0500 Respiratory rate 18 /min Cade Laureano MD Work Phone: [facility] 07-22-2023 10:07-0400 Body mass index (BMI) [Ratio] 37.77 kg/m2 Destiney Pichardo PA-C Work Phone: [facility] 07-22-2023 10:07-0400 Body weight 106.59 kg Destineysarah Pichardo PA-C Work Phone: [facility] 07-22-2023 10:07-0400 Diastolic blood pressure 66 mm[Hg] Destiney Pichardo PA-C Work Phone: [facility] 07-22-2023 10:07-0400 Heart rate 74 /min Destiney Pichardo PA-C Work Phone: [facility] 07-22-2023 10:07-0400 Respiratory rate 18 /min Destiney Pichardo PA-C Work Phone: [facility] 07-22-2023 10:07-0400 SaO2% (BldA) [Mass fraction] 96 % Destiney Pichardo PA-C Work Phone: [facility] 07-22-2023 10:07-0400 Systolic blood pressure 128 mm[Hg] Destiney Pichardo PA-C Work Phone: [facility] 05-13-2023 10:54-0400 Diastolic blood pressure 66 mm[Hg] Destiney Pichardo PA-C Work Phone: [facility] 05-13-2023 10:54-0400 Systolic blood pressure 128 mm[Hg] Destiney Pichardo PA-C Work Phone: [facility] 05-13-2023 10:36-0400 Body temperature 96.91 [degF] Destiney Pichardo PA-C Work Phone: [facility] 05-13-2023 10:36-0400 Body weight 105.69 kg Destiney Pichardo PA-C Work Phone: [facility] 05-13-2023 10:36-0400 Heart rate 79 /min Destiney Pichardo PA-C Work Phone: [facility] 05-13-2023 10:36-0400 Respiratory rate 18 /min Destiney Pichardo PA-C Work Phone: [facility] 05-13-2023 10:36-0400 SaO2% (BldA) [Mass fraction] 97 % Destiney Pichardo PA-C Work Phone: [facility] 01-20-2023 09:57-0500 Body weight 106.59 kg Maday Beckman G[employer]OLINE TE[employer]PORATE [employer]IST Work Phone: [facility] 01-20-2023 09:57-0500 Diastolic blood pressure 78 mm[Hg] Maday Beckman GASOLINE TESTER.[employer]PORATE [employer]STATE SPECIALIST Work Phone: [facility] 01-20-2023 09:57-0500 Heart rate 90 /min Maday Rk GASOLINE TESTER.[employer]PORATE REAL ESTATE SPECIALIST Work Phone: [facility] 01-20-2023 09:57-0500 Respiratory rate 16 /min Maday Rk GASOLINE TESTER.[employer]PORATE REAL ESTATE SPECIALIST Work Phone: [facility] 01-20-2023 09:57-0500 SaO2% (BldA) [Mass fraction] 98 % Maday Beckman GASOLINE TESTER.CORPORATE REAL ESTATE SPECIALIST Work Phone: [facility] 01-20-2023 09:57-0500 Systolic blood pressure 140 mm[Hg] Maday Beckman GASOLINE TESTER.CORPORATE REAL ESTATE SPECIALIST Work Phone: [facility] 11-29-2021 12:08-0400 Body height 170.18 cm [facility] Work Phone: 11-29-2021 12:08-0400 Body mass index (BMI) [Ratio] 36 kg/m2 [facility] Work Phone: 11-29-2021 12:08-0400 Body temperature 96.8 [degF] [facility] Work Phone: 11-29-2021 12:08-0400 Body weight 104.32 kg [facility] Work Phone: 11-29-2021 12:08-0400 Diastolic blood pressure 85 mm[Hg] [facility] Work Phone: 11-29-2021 12:08-0400 Heart rate 89 /min [facility] Work Phone: 11-29-2021 12:08-0400 Respiratory rate 16 /min [facility] Work Phone: 11-29-2021 12:08-0400 SaO2% (BldA) [Mass fraction] 98 % [facility] Work Phone: 11-29-2021 12:08-0400 Systolic blood pressure 174 mm[Hg] [facility] Work Phone: Encounters Encounter Date Encounter Type Care Provider Facility Start: 09-21-2024 Non-patient / Non-visit Dr. Mikael damian MD -[facility] Start: 09-21-2024 End: 09-21-2024 Emergency department patient visit Dr. Cade Laureano MD Work Phone: -Emergency Department Work Phone: Start: 08-17-2024 End: 08-17-2024 Follow-up encounter Destiney Pichardo PA-C Work Phone: [facility] Comment on above: Results Start: 08-16-2024 End: 08-16-2024 Office outpatient visit 25 minutes Destiney Pichardo PA-C Work Phone: [facility] Comment on above: Essential hypertensi on (Primary Dx); Mixed hyperlipidemia; Stage 3a chronic kidney disease (HCC); Elevated blood sugar; Low serum vitamin B12; Disorder of prostate ; Medication management; Hyperkalemia; Hypercalcemia; Ex-smoker Start: 08-16-2024 End: 08-16-2024 [facility] DESTINEY PICHARDO Facility:[facility] Start: 08-11-2024 End: 08-11-2024 ambulatory CADE LAUREANO Facility:[facility] Start: 07-19-2024 End: 07-19-2024 Refill Cade Laureano MD Work Phone: [facility] [place] Comment on above: Refill Request Start: 04-20-2024 End: 04-20-2024 Refill Cade Laureano MD Work Phone: [facility] [place] Comment on above: Refill Request Start: 03-05-2024 End: 03-05-2024 Refill Cade Laureano MD Work Phone: [facility] [place] Comment on above: Refill Request (traz odone) Start: 02-16-2024 End: 02-16-2024 ambulatory CADE LAUREANO Facility:[facility] Start: 02-16-2024 End: 02-16-2024 Patient encounter procedure Cade Laureano MD Work Phone: [facility] [place] Comment on above: Medicare annual well ness visit, subsequent (Primary Dx); Essential hypertension; Mixed hyperlipidemia; Elevated blood sugar; Stage 3a chronic kidney disease (HCC); Benign non-nodular prostatic hyperplasia without lower urinary tract symptoms; Low serum vitamin B12; Advance directive discussed with patient; Encounter for screening examination for other mental health and behavioral disorders; Screening for depression; AK (actinic keratosis); Chronic insomnia Start: 02-12-2024 End: 02-12-2024 ambulatory [facility] Facility:[facility] Start: 01-22-2024 End: 01-22-2024 Refill Cade Laureano MD Work Phone: [facility] [place] Comment on above: Refill Request Start: 01-02-2024 End: 01-02-2024 Refill Cade Laureano MD Work Phone: [facility] Comment on above: Refill Request Start: 08-25-2023 Telephone encounter Cade Laureano MD Work Phone: [facility] Comment on above: Patient Question Start: 07-29-2023 Refill Cade martínez MD Work Phone: [facility] Comment on above: Refill Request Start: 07-22-2023 End: 07-22-2023 Patient encounter procedure Destiney UMANZOR-C Work Phone: [facility] Comment on above: Essential hypertensi on (Primary Dx); Mixed hyperlipidemia; Stage 3a chronic kidney disease (HCC); Low serum vitamin B12; Medication management; Elevated blood sugar; Chronic insomnia Start: 07-09-2023 Refill Cade martínez MD Work Phone: [facility] [place] Comment on above: Refill Request Start: 05-19-2023 Telephone encounter Destineysarah olivares PA-C Work Phone: [facility] [place] Comment on above: Results Start: 05-15-2023 Telephone encounter Destiney Pastora burnetton PA-C Work Phone: [facility] [place] Comment on above: Results Start: 05-14-2023 Telephone encounter Destiney Pastora olivares PA-C Work Phone: [facility] Comment on above: Results Start: 05-13-2023 End: 05-13-2023 Patient encounter procedure Destiney Pichardo PA-C Work Phone: [facility] [place] Comment on above: Primary insomnia (Pr imary Dx); Family history of factor V deficiency; Fatigue, unspecified type; Stage 3a chronic kidney disease (HCC); Allergic rhinitis, unspecified seasonality, unspecified trigger Start: 01-20-2023 Telephone encounter Cade Laureano MD Work Phone: [facility] [place] Comment on above: Medication Problem Start: 01-20-2023 End: 01-20-2023 Patient encounter procedure Maday Beckman APRN.CNP Work Phone: [facility] Comment on above: Medicare annual well ness visit, subsequent (Primary Dx); Essential hypertension; Allergic rhinitis, unspecified seasonality, unspecified trigger; Mixed hyperlipidemia; Stage 3a chronic kidney disease (HCC); Benign non-nodular prostatic hyperplasia without lower urinary tract symptoms; Elevated blood sugar Start: 01-17-2022 Patient encounter procedure Maday Beckman APRN.[facility] [facility] [employer] Work Phone: [facility] Work Phone: Start: 12-11-2021 Telephone encounter Cade Laureano MD Work Phone: [facility] Comment on above: handicap placard rx Start: 11-29-2021 End: 11-29-2021 Emergency department patient visit Kristian Dejah Facility:[facility] Start: 11-29-2021 Telephone encounter Cade Laureano MD Work Phone: [facility] Comment on above: Covid19 Concern Start: 11-29-2021 End: 11-29-2021 Emergency department patient visit [facility] Start: 09-10-2021 Refill Cade martínez MD Work Phone: [facility] Comment on above: Refill Request Start: 07-17-2021 Refill Cade martínez MD Work Phone: [facility] Comment on above: Refill Request Start: 05-12-2020 Patient encounter procedure Cade Laureano MD Work Phone: [facility] Work Phone: Procedures Date Procedure Procedure Detail Performing Clinician Start: 09-21-2024 Plain radiography of pelvis Dr. Cade Laureano MD Work Phone: Start: 09-21-[address] Cade Laureano MD Work Phone: Start: 09-21-2024 Plain X-ray of femur Dr Dora Laureano MD Work Phone: Start: 09-21-2024 Plain X-ray of tibia and fibula Dr. Cade Laureano MD Work Phone: Start: 01-06-2025 Adult depression scr eening assessment Cade Laureano MD Work Phone: Plan of Treatment Date Care Activity Detail Author Start: 08-12-2027 Diabetes Screening Diabetes Screenin g [facility] Start: 02-11-2027 Diabetes Screening Diabetes Screenin g [facility] Start: 07-17-2026 Diabetes Screening Diabetes Screenin g [facility] Start: 05-14-2026 Diabetes Screening Diabetes Screenin g [facility] Start: 05-12-2026 Diabetes Screening Diabetes Screenin g [facility] Start: 01-17-2026 Diabetes Screening Diabetes Screenin g [facility] Start: 02-22-2025 End: 02-22-2025 Patient encounter procedure 02/22/2025 10:40 AM EST Office Visit [facility] [address] [place], [place] [id number] Cade Laureano MD [address] [place] [address] [id number] medicare wellness [facility] Comment on above: medicare wellness Start: 02-15-2025 End: 05-17-2025 25-hydroxyvitamin D3 [Mass/volume] in Serum or Plasma VITAMIN D 25 HYDROXY Lab Routine Vitamin D deficiency Expected: 02/15/2025, Expires: 05/17/2025 [facility] Work Phone: Comment on above: Expected: 02/15/2025 , Expires: 05/17/2025 Start: 02-15-2025 Anxiety Screening Anxiety Screening [facility] Start: 02-15-2025 End: 05-17-2025 CBC W Auto Differential panel - Blood COMPLETE BLOOD COUNT AND DIFFERENTIAL Lab Routine Essential hypertension Mixed hyperlipidemia Stage 3a chronic kidney disease (HCC) Elevated blood sugar Expected: 02/15/2025, Expires: 05/17/2025 [facility] Comment on above: Expected: 02/15/2025 , Expires: 05/17/2025 Start: 02-15-2025 End: 05-17-2025 Cobalamin (Vitamin B12) [Mass/volume] in Serum or Plasma VITAMIN B12 Lab Routine Low serum vitamin B12 Expected: 02/15/2025, Expires: 05/17/2025 [facility] Comment on above: Expected: 02/15/2025 , Expires: 05/17/2025 Start: 02-15-2025 End: 05-17-2025 Comprehensive metabolic 2000 panel - Serum or Plasma COMPREHENSIVE METABOLIC PANEL Lab Routine Essential hypertension Expected: 02/15/2025, Expires: 05/17/2025 [facility] Comment on above: Expected: 02/15/2025 , Expires: 05/17/2025 Start: 02-15-2025 Depression Screening Depression Scre ening [facility] Start: 02-15-2025 End: 05-17-2025 Hemoglobin A1c in Blood HEMOGLOBIN A1C Lab Routine Elevated blood sugar Expected: 02/15/2025, Expires: 05/17/2025 [facility] Work Phone: Comment on above: Expected: 02/15/2025 , Expires: 05/17/2025 Start: 02-15-2025 End: 05-17-2025 LIPID PANEL, NONFASTING LIPID PANEL, NONFASTING Lab Routine Mixed hyperlipidemia Expected: 02/15/2025, Expires: 05/17/2025 [facility] Comment on above: Expected: 02/15/2025 , Expires: 05/17/2025 Start: 02-15-2025 Medicare Annual Wellness Visit Medicare Annual Wellness Visit [facility] Start: 02-15-2025 RSV Vaccine (1 - 1-d ose 75+ series) RSV Vaccine (1 - 1-dose 75+ series) [facility] Comment on above: Postponed from 09/26 (Insurance Coverage) Start: 02-15-2025 Shingrix Vaccine (2 of 3) Shingrix Vaccine (2 of 3) [facility] Comment on above: Postponed from 09/07 (Insurance Coverage) Start: 02-15-2025 Urine microalbumin profile DTaP,Tdap,Td Vaccine (1 - Tdap) [facility] Comment on above: Postponed from 03/14 (Insurance Coverage) Start: 10-11-2024 Influenza vaccination Influenza Vacc ine (#1) [facility] Start: 09-21-2024 [facility] Start: 08-16-2024 End: 08-16-2024 Patient encounter procedure 08/16/2024 9:40 AM EDT Office Visit [facility] [address] [facility] [place] [id number] Destiney Pichardo PA-C [address] [place] [address] 6 month follow up Family [facility] Comment on above: 6 month follow up Start: 08-06-2024 End: 11-05-2024 Basic metabolic 2000 panel - Serum or Plasma BASIC METABOLIC PANEL Lab Routine Essential hypertension Mixed hyperlipidemia Elevated blood sugar Stage 3a chronic kidney disease (HCC) Expected: 08/06/2024, Expires: 11/05/2024 [facility] Work Phone: Comment on above: Expected: 08/06/2024 , Expires: 11/05/2024 Start: 08-06-2024 End: 11-05-2024 Cobalamin (Vitamin B12) [Mass/volume] in Serum or Plasma VITAMIN B12 Lab Routine Low serum vitamin B12 Expected: 08/06/2024, Expires: 11/05/2024 [facility] Comment on above: Expected: 08/06/2024 , Expires: 11/05/2024 Start: 08-06-2024 End: 11-05-2024 Hemoglobin A1c in Blood HEMOGLOBIN A1C Lab Routine Elevated blood sugar Expected: 08/06/2024, Expires: 11/05/2024 [facility] Comment on above: Expected: 08/06/2024 , Expires: 11/05/2024 Start: 08-06-2024 End: 11-05-2024 LIPID PANEL, NONFASTING LIPID PANEL, NONFASTING Lab Routine Essential hypertension Mixed hyperlipidemia Expected: 08/06/2024, Expires: 11/05/2024 [facility] Comment on above: Expected: 08/06/2024 , Expires: 11/05/2024 Start: 06-05-2024 DIABETES SCREEN DIABETES SCREEN [facility] Start: 06-01-2024 Covid-19 Vaccine ( season) Covid-19 Vaccine () [facility] Start: 02-16-2024 End: 02-16-2024 Patient encounter procedure 02/16/2024 8:00 AM EST Office Visit Family [facility] [address] [place] [address] Cade Laureano MD [address] [place] [address] Medicare Wellness Exam [facility] Comment on above: Medicare Wellness Ex am Start: 02-02-2024 End: 02-02-2024 Patient encounter procedure 02/02/2024 10:00 AM EST Office Visit Family [facility] [place] [address] [place] [address] Cade Laureano MD [address] [place] [address] Medicare Wellness Exam Family [facility] [place] Comment on above: Medicare Wellness Ex am Start: 01-21-2024 End: 04-21-2024 CBC W Auto Differential panel - Blood COMPLETE BLOOD COUNT AND DIFFERENTIAL Lab Routine Essential hypertension Mixed hyperlipidemia Stage 3a chronic kidney disease (HCC) Elevated blood sugar Expected: 01/21/2024, Expires: 04/21/2024 [facility] Comment on above: Expected: 01/21/2024 , Expires: 04/21/2024 Start: 01-21-2024 End: 04-21-2024 Comprehensive metabolic 2000 panel - Serum or Plasma COMPREHENSIVE METABOLIC PANEL Lab Routine Essential hypertension Expected: 01/21/2024, Expires: 04/21/2024 [facility] Comment on above: Expected: 01/21/2024 , Expires: 04/21/2024 Start: 01-21-2024 End: 04-21-2024 Hemoglobin A1c in Blood HEMOGLOBIN A1C Lab Routine Elevated blood sugar Expected: 01/21/2024, Expires: 04/21/2024 [facility] Work Phone: Comment on above: Expected: 01/21/2024 , Expires: 04/21/2024 Start: 01-21-2024 End: 04-21-2024 LIPID PANEL, NONFASTING LIPID PANEL, NONFASTING Lab Routine Mixed hyperlipidemia Expected: 01/21/2024, Expires: 04/21/2024 [facility] Comment on above: Expected: 01/21/2024 , Expires: 04/21/2024 Start: 01-21-2024 End: 03-12-2025 Urinalysis complete panel - Urine URINALYSIS, WITH MICROSCOPIC Lab Routine Essential hypertension Expected: 01/21/2024, Expires: 04/21/2024 [facility] Comment on above: Expected: 01/21/2024 , Expires: 04/21/2024 Start: 10-12-2023 Covid-19 Vaccine ( season) Covid-19 Vaccine () [facility] Start: 10-12-2023 Influenza vaccination Influenza Vacc ine (#1) [facility] Start: 07-22-2023 End: 10-21-2023 CBC W Auto Differential panel - Blood CBC + DIFF Lab Routine Essential hypertension Expected: 07/22/2023 (Approximate), Expires: 10/21/2023 [facility] Work Phone: Comment on above: Expected: 07/22/2023 (Approximate), Expires: 10/21/2023 Start: 07-22-2023 End: 10-21-2023 Cobalamin (Vitamin B12) [Mass/volume] in Serum or Plasma VITAMIN B12 Lab Routine Low serum vitamin B12 Expected: 07/22/2023, Expires: 10/21/2023 [facility] Comment on above: Expected: 07/22/2023 , Expires: 10/21/2023 Start: 07-22-2023 End: 10-21-2023 Comprehensive metabolic 2000 panel - Serum or Plasma COMP METABOLIC PANEL Lab Routine Essential hypertension Expected: 07/22/2023 (Approximate), Expires: 10/21/2023 [facility] Work Phone: Comment on above: Expected: 07/22/2023 (Approximate), Expires: 10/21/2023 Start: 07-22-2023 End: 10-21-2023 Hemoglobin A1c in Blood HGB A1C Lab Routine Elevated blood sugar Expected: 07/22/2023 (Approximate), Expires: 10/21/2023 [facility] Work Phone: Comment on above: Expected: 07/22/2023 (Approximate), Expires: 10/21/2023 Start: 07-22-2023 End: 10-21-2023 LIPID PANEL, NONFASTING LIPID PANEL, NONFASTING Lab Routine Mixed hyperlipidemia Expected: 07/22/2023 (Approximate), Expires: 10/21/2023 [facility] Work Phone: Comment on above: Expected: 07/22/2023 (Approximate), Expires: 10/21/2023 Start: 07-22-2023 End: 10-21-2023 Urinalysis complete panel - Urine URINALYSIS, WITH MICROSCOPIC Lab Routine Essential hypertension Expected: 07/22/2023 (Approximate), Expires: 10/21/2023 [facility] Work Phone: Comment on above: Expected: 07/22/2023 (Approximate), Expires: 10/21/2023 Start: 07-22-2023 End: 07-22-2023 Patient encounter procedure 07/22/2023 10:00 AM EDT Office Visit [facility] [address] [place] [address] Destiney Pichardo PA-C [address] [place] [address] 6 month follow up [facility] Comment on above: 6 month follow up Start: 06-16-2023 End: 09-15-2023 CBC W Auto Differential panel - Blood CBC + DIFF Lab Routine Thrombocytosis Expected: 06/16/2023, Expires: 09/15/2023 [facility] Work Phone: Comment on above: Expected: 06/16/2023 , Expires: 09/15/2023 Start: 06-16-2023 End: 09-15-2023 Cobalamin (Vitamin B12) [Mass/volume] in Serum or Plasma VITAMIN B12 BLOOD Lab Routine Low serum vitamin B12 Expected: 06/16/2023, Expires: 09/15/2023 [facility] Work Phone: Comment on above: Expected: 06/16/2023 , Expires: 09/15/2023 Start: 05-14-2023 End: 08-13-2023 Comprehensive metabolic 2000 panel - Serum or Plasma COMP METABOLIC PANEL Lab STAT Elevated serum creatinine Hyperkalemia Expected: 05/14/2023, Expires: 08/13/2023 [facility] Work Phone: Comment on above: Expected: 05/14/2023 , Expires: 08/13/2023 Start: 05-13-2023 End: 08-12-2023 FACTOR V LEIDEN/PCR [facility] Work Phone: Comment on above: Expected: 05/13/2023 , Expires: 08/12/2023 Start: 04-20-2023 Covid-19 Vaccine () Covid-19 Vaccine () [facility] Start: 02-10-2023 Advance Directive Discussion Advance Directive Discussion [facility] Start: 02-10-2023 Behavioral Health Screening Behavioral Health Screening [facility] Start: 02-10-2023 Depression Assessment Depression Ass essment [facility] Start: 11-29-2021 [facility] Work Phone: Start: 11-03-2021 Urine microalbumin profile DTAP,TDAP,TD (1 - Tdap) [facility] Comment on above: Postponed from 03/14 (Insurance Coverage) Start: 10-11-2021 Influenza vaccination INFLUENZA (#1) [facility] Start: 07-06-2021 COVID-19 VACCINE (5 - Booster for Moderna series) COVID-19 VACCINE (5 - Booster for Moderna series) [facility] Start: 02-10-2021 ADVANCE DIRECTIVE DISCUSSION ADVANCE DIRECTIVE DISCUSSION [facility] Start: 02-10-2021 DEPRESSION ASSESSMENT DEPRESSION ASS ESSMENT [facility] Start: 09-07-2012 SHINGRIX VACCINE (1 of 2) SHINGRIX VACCINE (1 of 2) [facility] Start: 09-07-2012 SHINGRIX VACCINE (2 of 3) SHINGRIX VACCINE (2 of 3) [facility] Start: 09-27-2011 RSV Vaccine (1 - 1-d ose 75+ series) RSV Vaccine (1 - 1-dose 75+ series) [facility] Start: 03-14-1998 Urine microalbumin profile [facility] Start: 1996 RSV Vaccine (1 - 1-d ose 60+ series) RSV Vaccine (1 - 1-dose 60+ series) [facility] Start: 08-17-1955 Anxiety Screening Anxiety Screening [facility] Start: 1954 Depression Screening Depression Scre ing [facility] Patient Education [facility] Work Phone: Patient referral [facility] Work Phone: [facility] Immunizations Immunization Date Immunization Notes Care Provider Joseph cheema 12-02-2023 influenza virus vacc ine, unspecified formulation Destiney Pichardo PA-C Work Phone: [facility] 12-20-2022 COVID-19 vaccine, ag e 12+ yr, season (PFIZER-BIONTArticleAlley) Maday Beckman GASOLINE TESTER.CORPORATE REAL ESTATE SPECIALIST Work Phone: [facility] 12-13-2022 influenza, high dose seasonal, preservative-free Maday Beckman GASOLINE TESTER.CORPORATE REAL ESTATE SPECIALIST Work Phone: [facility] 12-13-2022 influenza virus vacc ine, unspecified formulation Cade Laureano MD Work Phone: [facility] 01-03-2022 influenza (aIIV4) vaccine, age 65+ yr, quadrivalent, PF (FLUAD QUAD) Maday Beckman GASOLINE TESTER.CORPORATE REAL ESTATE SPECIALIST Work Phone: [facility] 11-28-2020 influenza, high dose seasonal, preservative-free Cade Laureano MD Work Phone: [facility] 04-03-2020 COVID-19 vaccine, fu ll dose (MODERNA) Cade Laureano MD Work Phone: [facility] 03-06-2020 COVID-19 vaccine, fu ll dose (MODERNA) Cade Laureano MD Work Phone: [facility] 11-16-2019 influenza (aIIV4) vaccine, age 65+ yr, quadrivalent, PF (FLUAD QUADRIVALENT) Cade Laureano MD Work Phone: [facility] 11-16-2019 influenza, high dose seasonal, preservative-free Cade Laureano MD Work Phone: [facility] 11-17-2018 influenza, high dose seasonal, preservative-free Cade Laureano MD Work Phone: [facility] 12-03-2017 influenza virus vacc ine, unspecified formulation Cade Laureano MD Work Phone: [facility] 11-27-2017 influenza, high dose seasonal, preservative-free Cade Laureano MD Work Phone: [facility] 11-26-2017 pneumococcal polysaccharide vaccine, 23 valent Cade Laureano MD Work Phone: [facility] 11-04-2016 influenza, high dose seasonal, preservative-free Cade Laureano MD Work Phone: [facility] 01-08-2016 influenza, high dose seasonal, preservative-free Cade Laureano MD Work Phone: [facility] 11-17-2015 influenza, high dose seasonal, preservative-free Cade Laureano MD Work Phone: [facility] 11-08-2014 influenza, injectabl e, quadrivalent, contains preservative Cade Laureano MD Work Phone: [facility] Work Phone: 11-08-2014 influenza, seasonal, injectable Cade Laureano MD Work Phone: [facility] 11-08-2014 pneumococcal conjuga te vaccine, 13 valent Cade Laureano MD Work Phone: [facility] Work Phone: 11-10-2013 Influenza virus vaccine [facility] 11-05-2013 influenza, seasonal, injectable Cade Laureano MD Work Phone: [facility] Work Phone: 07-13-2012 zoster vaccine, live Cade Laureano MD Work Phone: [facility] Work Phone: 11-08-2011 influenza virus vacc ine, unspecified formulation Cade Laureano MD Work Phone: [facility] 11-06-2010 influenza virus vacc ine, unspecified formulation Cade Laureano MD Work Phone: [facility] 11-06-2010 pneumococcal polysaccharide vaccine, 23 valent Cade Laureano MD Work Phone: [facility] 03-13-1998 tetanus and diphther ia toxoids, not adsorbed, for adult use Cade Laureano MD Work Phone: [facility] Payers Date Payer Category Payer Self-pay 2013 Private Health Insurance [facility] AARP SUPPLEMENT [id number] 2013-Present [phone] [address] [place] [address] Indemnity [id number] 2013 Unknown [id number] 2004 Private Health Insurance [employer] PPO [id number] 2004-Present [phone] [address] [place] [address] PPO [id number] 2004 Private Health Insurance [id number] 2004 Private Health Insurance [id number] 2001 Medicare MEDICARE MEDICAR E A AND B [id number] 2001-Present [phone] [address] [address] [place] [address] Medicare [id number] 2001 Medicare MEDICARE PART A B 0 [id number] 2001 Medicare [id number] 2001 Medicare [id number] Unknown [id number] Social History Date Type Detail Facility Start: 02-06-2017 End: 02-16-2024 Tobacco smoking status NHIS Ex-smoker [facility] Work Phone: Start: 02-11-1956 End: 02-11-1976 History of tobacco use Current smoker [facility] Work Phone: Start: 02-11-1956 End: 02-11-1976 History of tobacco use Cigarette Smoker [facility] Work Phone: Start: 06-10-2021 End: 08-16-2024 Alcohol intake Current drinker of alcohol (finding) [facility] Start: 1935 Sex Assigned At Not on file [facility] Start: 11-29-2021 Tobacco smoking stat [facility] Unknown if ever smoked [facility] Work Phone: Start: 1935 Sex Assigned At Male [facility] Start: 02-06-2017 End: 07-19-2022 Cigarettes smoked current (pack per day) - Reported 3 [facility] Work Phone: Start: 02-06-2017 End: 02-16-2024 Tobacco use and exposure Smokeless tobacco non-user [facility] Work Phone: Start: 07-19-2022 End: 02-16-2024 Tobacco use panel [facility] Work Phone: Adult Depression Screening Assessment 0 [facility] Work Phone: Start: 01-17-2022 Alcohol Comment very rare. may be some during holidays [facility] How often to you hav e a drink containing alcohol? Never [facility] Start: 09-21-2024 [facility] (finding[facility] Functional Status Date Assessment Result Facility 06-21-2014 Are you deaf, or do you have serious difficulty hearing No 06/21/2014 9:13 AM Tessie Henson RN No [facility] 06-21-2014 Are you blind, or do you have serious difficulty seeing, even when wearing glasses No 06/21/2014 9:13 AM EDT Tessie Limon RN No [facility] 06-21-2014 Do you have serious difficulty walking or climbing stairs No 06/21/2014 9:13 AM EDTessie Jimenez RN No [facility] 06-21-2014 Do you have difficul ty dressing or bathing No 06/21/2014 9:13 AM EDTessie Jimenez RN No [facility] 06-21-2014 Because of a physica l, mental, or emotional condition, do you have difficulty doing errands alone such as visiting a physician's office or shopping No 06/21/2014 9:13 AM EDT Tessie Limon RN No [facility] Mental Status Date Assessment Result Facility 11-29-2021 Cognitive function Level Of Cons ciousness Awake;Alert;Appropriate [facility] Work Phone: 06-21-2014 Because of a physica l, mental, or emotional condition, do you have serious difficulty concentrating, remembering, or making decisions No 06/21/2014 9:13 AM EDT Tessie Limon RN No [facility] Clinical Notes 05-21-2000 to 09-21-2024 Telephone Encounter - Shannan Desir MA - 08/17/2024 10:35 AM EDTTelephone Encounter - Shannan Desir MA - 08/17/2024 10:35 AM EDTTelephone Encounter - Destiney Pichardo PA-C - 08/17/2024 8:53 AM EDT Note Date & Type Note Facility 09-21-2024 Radiology Diagnostic study note [facility] Imaging Services [address] [place] [address] [id number] Tibia & Fibula 2 Views MR#: [id number] Acct: [id number] Name: JENIFER PEREZ Jammie Rep #: [id number] : 1935 M 88 From: Chucky Ruelas MD PCP: Dr. Cade Laureano MD Status: [facility] ER Study:Tibia & Fibula 2 Views Date of Exam: 09/21/24 Exam# [id number] Ordering Dr: Jennifer Maldonado MD EXAM: Right tibia and fibula, four views CLINICAL HISTORY: Pain COMPARISON: None TECHNIQUE: 2 AP and 2 lateral views of the right tibia and fibula FINDINGS: No demonstrated fracture or suspicious osseous lesion. Joint spaces are well-preserved Atherosclerotic calcifications. RAD/Tibia & Fibula 2 Views IMPRESSION: No acute abnormalities Reading Location: [facility] CC: Dr. Karlos Maldonado MD; Dr. Cade Lauraeno MD ~ Wire Mesh Knitter: Signed [facility] 09-21-2024 Radiology Diagnostic study note [facility] Imaging Services [address] [place] [address] Femur Min 2 Views MR#: [id number] Acct: [id number] Name: JENIFER PEREZ Rep #: [id number] : 1935 M 88 From: Chucky Ruelas MD PCP: Dr. Cade Laureano MD Status: REG ER Study:Femur Min 2 Views Date of Exam: Exam# [id number] Ordering Dr: Jennifer Maldonado MD PROCEDURE: FEMUR MIN 2 VIEWS 09/21/2024 REASON FOR EXAM: PAIN TECHNIQUE: FEMUR MIN 2 VIEWS Laterality: Right COMPARISON: None FINDINGS: No demonstrated femoral fracture. 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 The femoral component is free of complication or failure. Age consistent degenerative changes in the right knee. Soft tissues show peripheral calcifications in the popliteal artery No foreign body or suspicious soft tissue swelling RAD/Femur Min 2 Views IMPRESSION: No acute abnormalities Reading Location: [facility] CC: Dr. Karlos Maldonado MD; Dr. Cade Laureano MD ~ Wire Mesh Knitter: Signed [facility] 09-21-2024 Radiology Diagnostic study note [facility] Imaging Services [address] [place] [address] Pelvis 1 or 2 Views MR#: [id number] Acct: [id number] Name: JENIFER PEREZ Rep #: [id number] : 1935 M 88 From: Chucky Ruelas MD PCP: Dr. Cade Laureano MD Status: REG ER Study:Pelvis 1 or 2 Views Date of Exam: 09/21/24 Exam# [id number] Ordering Dr: Jennifer Maldonado MD PROCEDURE: PELVIS 1 OR 2 VIEWS 09/21/2024 REASON FOR EXAM: PAIN TECHNIQUE: PELVIS 1 OR 2 VIEWS COMPARISON: None FINDINGS: Both hips have been previously replaced. Components demonstrate anatomic alignment, no plain film evidence of hardware complication or failure. No demonstrated pelvic fracture, SI joints are well-preserved. No aggressive osseous lesion. RAD/Pelvis 1 or 2 Views IMPRESSION: No acute abnormalities. Replaced hip joints free of complication Reading Location: [id number] CC: Dr. Karlos Maldonado MD; Dr. Cade Laureano MD ~ Wire Mesh Knitter: Signed [facility] 08-17-2024 Telephone encounter Note Call to pt and notified him of results and recommendations below from Provider. Pt verbalized understanding. Did as pt while on the phone if okay to give medical information to , Stephy. Pt is okay with this. Will update demographics. Shannan Desir MA [facility] 08-17-2024 Miscellaneous Notes Call to pt and notified him of results and recommendations below from Provider. Pt verbalized understanding. Did as pt while on the phone if okay to give medical information to , Stephy. Pt is okay with this. Will update demographics. Shannan Desir MA Repeat potassium and calcium levels are normal. His vit D level is slightly low. Recommend starting daily OTC vit D3 at 2000 international unit(s). Thanks. Dsetiney Pichardo PA-C documented in this encounter [facility] 08-17-2024 Telephone encounter Note Repeat potassium and calcium levels are normal. His vit D level is slightly low. Recommend starting daily OTC vit D3 at 2000 international unit(s). Thanks. Destiney Pichardo PA-C [facility] 08-16-2024 Note HNO ID: [id number] Author: DESTINEY PICHARDO PA-C Service: ? Author Type: Physician Quill Layer Type: Progress Notes Filed: 08/16/2024 11:01 Note Text: Chief Complaint Patient presents with: F/U 6 Month: With lab review HPI Jenifer Perez is a 88 year old male who presents here today for Chronic Medical Conditions.. Patient with hx of HTN, hyperlipidemia, CKD, low b12, allergies and those as below. Hypertension: - Home blood pressure readings typically range from 120-130/70 mmHg. - Blood pressure was 125/78 at home this morning. - Monitors blood pressure at home about once a week; previously checked daily. - No antihypertensive medication taken today before readings. Dietary Habits: - Jenifer consumes a significant amount of fruit. - Inquires if fruit consumption could affect glucose levels. Fatigue: - Experiences fatigue after 10-15 minutes of physical activity. - Engages in outdoor work, including cutting trees and maintaining a 2.5-acre lawn. - Recently trimmed 120 bushes around his property. - Reports feeling tired out quickly but recovers easily after rest. - Denies chest pain during activities. Hydration: - Suspects possible dehydration due to outdoor work and sweating. - Drinks water but may need to incorporate electrolytes. Past medical history, appointments, medications, allergies reviewed. Previous Medical History PAST MEDICAL HISTORY Diagnosis Date Allergic rhinitis 07/19/2022 Basal cell carcinoma of skin 05/09/2015 Right ear 02/2015 by Phong Bonilla. Benign non-nodular prostatic hyperplasia without lower urinary tract symptoms 11/08/2014 Chronic insomnia 07/22/2023 Elevated blood sugar 03/03/2019 Essential hypertension 11/08/2014 08/14/2016: Home BP Cuff Validated. Home BP: 116/64 Office BP: 124/68 Ex-smoker 03/03/2019 Started at the age 19 Up to 3 PPD and quit at age 33 Hypokalemia 04/02/2018 suspect related to HCTZ Low serum vitamin B12 05/14/2023 Mixed hyperlipidemia Hyperlipidemia Osteoarth NOS-pelvis 05/21/2000 Renal insufficiency 01/29/2016 Advised to avoid NSAID's 01/29/2016 SPINAL STENOSIS-LUMBAR 05/21/2000 Stage 3a chronic kidney disease (HCC) 01/29/2016 Advised to avoid NSAID's 01/29/2016 Previous Surgical History PAST SURGICAL HISTORY Procedure Laterality Date ARTHRP ACETBLR/PROX FEM PROSTC AGRFT/ALGRFT 09/21/13 right PAST SURGICAL HISTORY OF 02/2015 skin cancer right ear TOTAL HIP REPLACEMENT 01/2014 Lt Family History FAMILY HISTORY Problem Relation Age of Onset Alzheimer's Disease Mother Arthritis Mother Cancer Father wicho cell - face Lipids Father Hypertension Father Diabetes Brother Cancer Brother lung Heart Brother Lipids Brother Hypertension Brother other (arthritis) Daughter psoratic Patient Allergies ALLERGIES Allergen Reactions Altace [Ramipril] Cough Cough Ciprofloxacin Diarrhea Hctz [Thiazides] Other: See Comments hypokalemia Current Medications Current Outpatient Medications on File Prior to Visit Medication Sig verapamil SR (CALAN SR) 240 mg CR tablet Take 1 tablet by mouth two times a day. fenofibrate nanocrystallized (TRICOR) 145 mg tablet Take 1 tablet by mouth once daily. spironolactone (ALDACTONE) 25 mg tablet Take 1 tablet by mouth once daily. Ipratropium [place] (ATROVENT) 21 mcg (0.03 %) nasal spray Use 2 Sprays in the nose every 12 hours. guaiFENesin (MUCINEX) 600 mg 12 hr tablet Take 2 tablets by mouth two times a day. cyanocobalamin (VITAMIN B-12) 1,000 mcg tab Take 1 tablet by mouth once daily. loratadine (CLARITIN ORAL) Take by mouth. naproxen sodium 220 mg cap Take by mouth as directed. latanoprost, PF, 0.005 % drop Use in eyes. aspirin, enteric coated (ADULT LOW DOSE ASPIRIN) 81 mg EC tablet Take 1 tablet by mouth once daily. traZODone (DESYREL) 50 mg tablet Take 1 tablet by mouth daily at bedtime. (Patient not taking: Reported on 08/16/2024) MELATONIN ORAL Take 1 mg by mouth daily at bedtime. (Patient not taking: Reported on 08/16/2024) No current facility-administered medications on file prior to visit. Social History Social History Tobacco Use Smoking status: Former Current packs/day: 0.00 Average packs/day: 3.0 packs/day for 20.0 years (60.0 ttl pk-yrs) Types: Cigarettes Start date: 02/11/1956 Quit date: 02/11/1976 Years since quittin.5 Smokeless tobacco: Never Vaping Use Vaping status: Never Used Substance Use Topics Alcohol use: Yes Comment: very rare. maybe some during holidays Drug use: No Comment: denies tx Review of Symptoms REVIEW OF SYSTEMS GENERAL: No weight loss, malaise or fevers NECK: Negative for lumps, goiter, pain and significant neck swelling RESPIRATORY: Negative for cough, hemoptysis, wheezing, COPD, dyspnea or shortness of breath CARDIOVASCULAR: Negative for chest pain, leg swelling, CHF or palpitations NEURO: No history of headaches, syncope, paralysis, seizur (more content not included)... [facility] 08-16-2024 History of Presen t illness Narrative Chief Complaint Patient presents with: F/U 6 Month: With lab review HPI Jenifer Perez is a 88 year old male who presents here today for Chronic Medical Conditions.. Patient with hx of HTN, hyperlipidemia, CKD, low b12, allergies and those as below. Hypertension: - Home blood pressure readings typically range from 120-130/70 mmHg. - Blood pressure was 125/78 at home this morning. - Monitors blood pressure at home about once a week; previously checked daily. - No antihypertensive medication taken today before readings. Dietary Habits: - Jenifer consumes a significant amount of fruit. - Inquires if fruit consumption could affect glucose levels. Fatigue: - Experiences fatigue after 10-15 minutes of physical activity. - Engages in outdoor work, including cutting trees and maintaining a 2.5-acre lawn. - Recently trimmed 120 bushes around his property. - Reports feeling tired out quickly but recovers easily after rest. - Denies chest pain during activities. Hydration: - Suspects possible dehydration due to outdoor work and sweating. - Drinks water but may need to incorporate electrolytes. Past medical history, appointments, medications, allergies reviewed. Previous Medical History PAST MEDICAL HISTORY Diagnosis Date Allergic rhinitis 07/19/2022 Basal cell carcinoma of skin 05/09/2015 Right ear 02/2015 by Phong Bonilla. Benign non-nodular prostatic hyperplasia without lower urinary tract symptoms 11/08/2014 Chronic insomnia 07/22/2023 Elevated blood sugar 03/03/2019 Essential hypertension 11/08/2014 08/14/2016: Home BP Cuff Validated. Home BP: 116/64 Office BP: 124/68 Ex-smoker 03/03/2019 Started at the age 19 Up to 3 PPD and quit at age 33 Hypokalemia 04/02/2018 suspect related to HCTZ Low serum vitamin B12 05/14/2023 Mixed hyperlipidemia Hyperlipidemia Osteoarth NOS-pelvis 05/21/2000 Renal insufficiency 01/29/2016 Advised to avoid NSAID's 01/29/2016 SPINAL STENOSIS-LUMBAR 05/21/2000 Stage 3a chronic kidney disease (HCC) 01/29/2016 Advised to avoid NSAID's 01/29/2016 Previous Surgical History PAST SURGICAL HISTORY Procedure Laterality Date ARTHRP ACETBLR/PROX FEM PROSTC AGRFT/ALGRFT 09/21/13 right PAST SURGICAL HISTORY OF 02/2015 skin cancer right ear TOTAL HIP REPLACEMENT 01/2014 Lt Family History FAMILY HISTORY Problem Relation Age of Onset Alzheimer's Disease Mother Arthritis Mother Cancer Father wicho cell - face Lipids Father Hypertension Father Diabetes Brother Cancer Brother lung Heart Brother Lipids Brother Hypertension Brother other (arthritis) Daughter psoratic Patient Allergies ALLERGIES Allergen Reactions Altace [Ramipril] Cough Cough Ciprofloxacin Diarrhea Hctz [Thiazides] Other: See Comments hypokalemia Current Medications Current Outpatient Medications on File Prior to Visit Medication Sig verapamil SR (CALAN SR) 240 mg CR tablet Take 1 tablet by mouth two times a day. fenofibrate nanocrystallized (TRICOR) 145 mg tablet Take 1 tablet by mouth once daily. spironolactone (ALDACTONE) 25 mg tablet Take 1 tablet by mouth once daily. Ipratropium [place] (ATROVENT) 21 mcg (0.03 %) nasal spray Use 2 Sprays in the nose every 12 hours. guaiFENesin (MUCINEX) 600 mg 12 hr tablet Take 2 tablets by mouth two times a day. cyanocobalamin (VITAMIN B-12) 1,000 mcg tab Take 1 tablet by mouth once daily. loratadine (CLARITIN ORAL) Take by mouth. naproxen sodium 220 mg cap Take by mouth as directed. latanoprost, PF, 0.005 % drop Use in eyes. aspirin, enteric coated (ADULT LOW DOSE ASPIRIN) 81 mg EC tablet Take 1 tablet by mouth once daily. traZODone (DESYREL) 50 mg tablet Take 1 tablet by mouth daily at bedtime. (Patient not taking: Reported on 08/16/2024) MELATONIN ORAL Take 1 mg by mouth daily at bedtime. (Patient not taking: Reported on 08/16/2024) No current facility-administered medications on file prior to visit. Social History Social History Tobacco Use Smoking status: Former Current packs/day: 0.00 Average packs/day: 3.0 packs/day for 20.0 years (60.0 ttl pk-yrs) Types: Cigarettes Start date: 02/11/1956 Quit date: 02/11/1976 Years since quittin.5 Smokeless tobacco: Never Vaping Use Vaping status: Never Used Substance Use Topics Alcohol use: Yes Comment: very rare. maybe some during holidays Drug use: No Comment: denies tx Review of Symptoms REVIEW OF SYSTEMS GENERAL: No weight loss, malaise or fevers NECK: Negative for lumps, goiter, pain and significant neck swelling RESPIRATORY: Negative for cough, hemoptysis, wheezing, COPD, dyspnea or shortness of breath CARDIOVASCULAR: Negative for chest pain, leg swelling, CHF or palpitations NEURO: No history of headaches, syncope, paralysis, seizures or tremors SEE HPI EXAM: BP 125/78 Pulse 82 Wt 100.9 kg (222 lb 6.4 oz) SpO2 97% BMI 33.82 kg/m BP 125/78 Pulse 82 Wt 100.9 kg (222 lb 6.4 oz) SpO2 97% BMI 33.82 kg/m General Appearance: Well appearing, alert, in no acute distress, well-hydrated, well nourished.. Neck: Supple, no adenopathy; thyroid symmetric, normal size, no bruits. Lungs: Lungs clear to auscultation. No wheezing, rhonchi, rales.. Heart: RRR without murmur, gallop, or rubs. No ectopy. Extremities: No deformities, edema, skin discoloration, clubbing or cyanosis. Good capillary refill. . Peripheral Pulses: Normal. Health Maintenance List Covid-19 Vaccine(8 - 2024-25 season) due on 06/01/2024 DTaP,Tdap,Td Vaccine(1 - Tdap) due on 02/15/2025 RSV Vaccine(1 - 1-dose 75+ series) due on 02/15/2025 Shingrix Vaccine(2 of 3) due on 02/15/2025 Influenza Vaccine(1) due on 10/11/2024 Depression Screening due on 02/15/2025 Anxiety Screening due on 02/15/2025 Medicare Annual Wellness Visit due on 02/15/2025 Diabetes Screening due on 08/12/2027 Advance Directive Discussion Completed Pneumococcal Vaccine: 50+ Completed Data reviewed Latest Ref Rng 08/11/2024 Glucose 74 - 99 mg/dL 123 (H) BUN 9 - 24 mg/dL 30 (H) Creatinine 0.73 - 1.22 mg/dL 1.38 (H) Sodium 136 - 144 mmol/L 141 Potassium 3.7 - 5.1 mmol/L 5.2 (H) Chloride 98 - 107 mmol/L 107 CO2 22 - 30 mmol/L 21 (L) Anion Gap 8 - 15 mmol/L 13 Calcium 8.5 - 10.2 mg/dL 10.4 (H) eGFR >=60 mL/min/1.73m 49 (L) Total Cholesterol, Nonfasting <200 mg/dL 192 Triglycerides, Nonfasting <150 mg/dL 75 HDL Cholesterol, Nonfasting >39 mg/dL 61 LDL Cholesterol Calculated, Nonfasting <100 mg/dL 117 (H) Non HDL Cholesterol, Nonfasting <130 mg/dL 131 (H) VLDL Cholesterol, Nonfasting <30 mg/dL 13 Total Chol/HDL Ratio, Nonfasting <5.10 mg/dL 3.15 LDL/HDL Ratio, Nonfasting <2.54 mg/dL 1.92 Hemoglobin A1C 4.3 - 5.6 % 5.8 (H) Estimated Average Glucose mg/dL 120 Vitamin B12 232 - 1,245 pg/mL 1,573 (H) Legend: (H) High (L) Low Assessment and Plan 1. Essential hypertension (I10) - Blood pressure readings at home are stable, typically around 120-130/70 mmHg. - No medication currently prescribed for hypertension. - Continue monitoring blood pressure at home. 2. Mixed hyperlipidemia (E78.2) - LDL cholesterol improved from 133 mg/dL to 117 mg/dL. - Goal LDL is less than 100 mg/dL. - Continue current dietary modifications. 3. Stage 3a chronic kidney disease (HCC) (N18.31) - Creatinine slightly elevated; GFR has fluctuated between 42-57 mL/min/1.73m but remains stable. - Advised increased hydration, especially due to outdoor activities and potential dehydration. - Recommended incorporating electrolytes, such as one Gatorade per day. 4. Elevated blood sugar (R73.9) - Hemoglobin A1c increased to 5.8%. - Fasting glucose level at 123 mg/dL. - Advised moderation in fruit intake to manage glucose levels. 5. Low serum vitamin B12 (E53.8) - Serum B12 level at 1500 pg/mL. - Currently taking 1000 mcg of B12 daily. - Advised that current level is not concerning; may reduce B12 intake to every other day if desired. 6. Disorder of prostate (N42.9) - labs ordered for next visit 7. Medication management (Z79.899) 8. Hyperkalemia (E87.5) - Potassium level at 5.2 mmol/L. - Potential for false elevation due to sample handling. - Ordered repeat potassium level before patient leaves today. 9. Hypercalcemia (E83.52) - Calcium level at 10.4 mg/dL. - Ordered repeat calcium level, vitamin D level, and parathyroid hormone level to assess for underlying causes. 10. Ex-smoker (Z87.891) Destiney Pichardo PA-C Recording using [employer] software for draft documentation of the visit was discussed with the patient/authorized education courses sales representative; all questions welcomed and answered. Patient/authorized education courses sales representative agreed to proceed documented in this encounter [facility] 07-19-2024 Telephone encounter Note Prescription Refill Information The patient has been identified by name and date of : Yes Caregiver verified no other encounters exist for this prescription request: Yes Caregiver confirmed with patient/requestor that no other refills are due, in the near future, with this provider at this time: Yes The last office visit in the department: 02/16/24 Does the patient have a future office visit with this provider/department: Yes Requested Prescriptions Pending Prescriptions Disp Refills verapamil SR (CALAN SR) 240 mg CR tablet 180 tablet 3 Sig: Take 1 tablet by mouth two times a day. Lenora Croft July 19, 2024 11:08 AM [facility] 07-19-2024 Miscellaneous Notes Prescription Refill Information The patient has been identified by name and date of : Yes Caregiver verified no other encounters exist for this prescription request: Yes Caregiver confirmed with patient/requestor that no other refills are due, in the near future, with this provider at this time: Yes The last office visit in the department: 02/16/24 Does the patient have a future office visit with this provider/department: Yes Requested Prescriptions Pending Prescriptions Disp Refills verapamil SR (CALAN SR) 240 mg CR tablet 180 tablet 3 Sig: Take 1 tablet by mouth two times a day. Lenora Croft July 19, 2024 11:08 AM documented in this encounter [facility] 04-20-2024 Telephone encounter Note The patient has been identified by name and date of : Yes Caregiver verified no other encounters exist for this prescription request: Yes Caregiver confirmed with patient/requestor that no other refills are due, in the near future, with this provider at this time: Yes The last office visit in the department: 02/16/2024 Does the patient have a future office visit with this provider/department: 08/16/2024 Requested Prescriptions Pending Prescriptions Disp Refills spironolactone (ALDACTONE) 25 mg tablet 90 tablet 2 Sig: Take 1 tablet by mouth once daily. Gabbi Powell RN April 20, 2024 12:47 PM [facility] 04-20-2024 Miscellaneous Notes The patient has been identified by name and date of : Yes Caregiver verified no other encounters exist for this prescription request: Yes Caregiver confirmed with patient/requestor that no other refills are due, in the near future, with this provider at this time: Yes The last office visit in the department: 02/16/2024 Does the patient have a future office visit with this provider/department: 08/16/2024 Requested Prescriptions Pending Prescriptions Disp Refills spironolactone (ALDACTONE) 25 mg tablet 90 tablet 2 Sig: Take 1 tablet by mouth once daily. Gabbi Powell RN April 20, 2024 12:47 PM documented in this encounter [facility] 03-05-2024 Telephone encounter Note Prescription Refill Information The patient has been identified by name and date of : Yes Caregiver verified no other encounters exist for this prescription request: Yes Caregiver confirmed with patient/requestor that no other refills are due, in the near future, with this provider at this time: Yes The last office visit in the department: 02/16/24 Does the patient have a future office visit with this provider/department: Yes Requested Prescriptions Pending Prescriptions Disp Refills traZODone (DESYREL) 50 mg tablet 90 tablet 1 Sig: Take 1 tablet by mouth daily at bedtime. Olivia Lux LPN March 05, 2024 10:52 AM [facility] 03-05-2024 Miscellaneous Notes Prescription Refill Information The patient has been identified by name and date of : Yes Caregiver verified no other encounters exist for this prescription request: Yes Caregiver confirmed with patient/requestor that no other refills are due, in the near future, with this provider at this time: Yes The last office visit in the department: 02/16/24 Does the patient have a future office visit with this provider/department: Yes Requested Prescriptions Pending Prescriptions Disp Refills traZODone (DESYREL) 50 mg tablet 90 tablet 1 Sig: Take 1 tablet by mouth daily at bedtime. Olivia Lux LPN March 05, 2024 10:52 AM documented in this encounter [facility] 02-16-2024 Instructions Cade Laureano MD - 02/16/2024 8:10 AM EST Consider getting the shingrix vaccine for the prevention of shingles from a local pharmacy along with the RSv vaccine and a Tdap to update your tetanus. Please bring in copies of your power of accounting director for health care and living will. Please get labs done on or after 08/06/2024 prior to your next visit. Screening schedule The following prevention plan is recommended: Depression Screening Never done Anxiety Screening Never done DTaP,Tdap,Td Vaccine(1 - Tdap) due on 03/14/1998 RSV Vaccine(1 - 1-dose 75+ series) Never done Shingrix Vaccine(2 of 3) due on 09/07/2012 Advance Directive Discussion due on 02/11/2024 WHAT YOU CAN DO TO PREVENT FALLS Many falls can be prevented. By making some changes, you can lower your chances of falling. Four things YOU can do to prevent falls for you* and your caregiver 1. Begin a regular exercise program Exercise is one of the most important ways to lower your chances of falling. It makes you stronger and helps you feel better. Exercises that improve balance and coordination (like Darrny Chi) are the most helpful. Lack of exercise leads to weakness and increases your chances of falling. Ask your doctor or health care provider about the best type of exercise program for you. 2. Have your health care provider review your medicines Have your doctor or pharmacist review all the medicines you take, even [id number] medicines. As you get older, the way medicines work in your body can change. Some medicines, or combinations of medicines, can make you sleepy or dizzy and can cause you to fall. 3. Have your vision checked Have your eyes checked by an eye doctor at least once a year. You may be wearing the wrong glasses or have a condition like glaucoma or cataracts that limits your vision. Poor vision can increase your chances of falling. 4. Make your home safer About half of all falls happen at home. To make your home safer: Remove things you can trip over (like papers, books, clothes, and shoes) from stairs and places where you walk. Remove small throw rugs or use double-sided tape to keep the rugs from slipping. Keep items you use often in cabinets you can reach easily without using a step stool. Have grab bars put in next to your toilet and in the tub or shower. Use non-slip mats in the bathtub and on shower floors. Improve the lighting in your home. As you get older, you need brighter lights to see well. Hang light-weight curtains or shades to reduce glare. Have handrails and lights put in on all staircases. Wear shoes both inside and outside the house. Avoid going barefoot or wearing slippers. For more information, contact: Centers for Disease Control and Prevention www.cdc.gov/injury * This information may not apply if you have certain medical conditions. documented in this encounter [facility] 02-16-2024 History of Presen t illness Narrative Images from the original note were not included. Jenifer Perez is a 88 year old male here for a Medicare wellness visit. Medicare Health Risk Assessment General Health Very good Exercise: Minutes/Day 0 min Exercise: Days/Week never Alcohol: Daily Use Never Alcohol: Drinks/Day Patient does not drink Alcohol: 6 or more drinks Never Feel off balance No Concerns: Teeth/Dentures No Concerns: Sexual function No Troubled by feelings None of the above Frequency: Eating healthy diet Nearly every day ADLs requiring help None of the above Safety precautions in home/vehicle No Smoke, vape, chews tobacco No Difficulty hearing No Difficulty seeing No Current Providers Specialists: I have reviewed specialist-related care of the patient in the medical record. Current care team: Patient Care Team: Cade Laureano MD as PCP - General (Family Medicine) Maday Beckman APRN.CNP as Political Geographer (Family Medicine) Destiney Pichardo PA-C as Political Geographer (Family Medicine) Medical/Family history review Reviewed and updated problem list, medical/surgical/family/social history, medications, and allergies. Opioid use review Opioid Medications (last 90 days) No data to display Anxiety/Depression screening PHQ-2 Score: 0 (Lower risk for depression) Recommendation: no further intervention at this time Cognitive screening Score: 5 Cognitive screening reviewed and No further action needed (score 3-5). Functional Observation Was the patient's Timed Up & Go test unsteady or >= 12 seconds? No Advance Care Planning Surrogate decision maker and/or advance care plan documented Measurements BP 156/78 Pulse 62 Resp 18 Ht 172.7 cm (5' 8) Wt 102.5 kg (226 lb) BMI 34.36 kg/m Vision Screening: Follows with optometry/ophthalmology Assessment/Plan Medicare annual wellness visit, subsequent (Z00.00) - Counseled on healthy diet and regular exercise - Fall avoidance information provided - Personalized prevention plan provided See Below Chief Complaint Patient presents with: Medicare Wellness Exam HPI Jenifer Perez is a 88 year old male who presents here today for Chronic Medical Conditions. and Medicare Annual Visit. Patient with hx of HTN, hyperlipidemia, CKD, low b12, allergies and those as below. Patient has been doing well. No new issues or concerns. Past medical history, appointments, medications, allergies reviewed. Previous Medical History PAST MEDICAL HISTORY Diagnosis Date Allergic rhinitis 07/19/2022 Basal cell carcinoma of skin 05/09/2015 Right ear 02/2015 by Phong Bonilla. Benign non-nodular prostatic hyperplasia without lower urinary tract symptoms 11/08/2014 Elevated blood sugar 03/03/2019 Essential hypertension 11/08/2014 08/14/2016: Home BP Cuff Validated. 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 Renal insufficiency 01/29/2016 Advised to avoid NSAID's 01/29/2016 SPINAL STENOSIS-LUMBAR 05/21/2000 Stage 3a chronic kidney disease (HCC) 01/29/2016 Advised to avoid NSAID's 01/29/2016 Previous Surgical History PAST SURGICAL HISTORY Procedure Laterality Date ARTHRP ACETBLR/PROX FEM PROSTC AGRFT/ALGRFT 09/21/13 right PAST SURGICAL HISTORY OF 02/2015 skin cancer right ear TOTAL HIP REPLACEMENT 01/2014 Lt Family History FAMILY HISTORY Problem Relation Age of Onset Alzheimer's Disease Mother Arthritis Mother Cancer Father wicho cell - face Lipids Father Hypertension Father Diabetes Brother Cancer Brother lung Heart Brother Lipids Brother Hypertension Brother other (arthritis) Daughter psoratic Patient Allergies ALLERGIES Allergen Reactions Altace [Ramipril] Cough Cough Ciprofloxacin Diarrhea Hctz [Thiazides] Other: See Comments hypokalemia Current Medications Current Outpatient Medications on File Prior to Visit Medication Sig verapamil SR (CALAN SR) 240 mg CR tablet Take 1 tablet by mouth two times a day. fenofibrate nanocrystallized (TRICOR) 145 mg tablet Take 1 tablet by mouth once daily. Ipratropium [place] (ATROVENT) 21 mcg (0.03 %) nasal spray Use 2 Sprays in the nose every 12 hours. guaiFENesin (MUCINEX) 600 mg 12 hr tablet Take 2 tablets by mouth two times a day. montelukast (SINGULAIR) 10 mg tablet Take 1 tablet by mouth daily at bedtime. MELATONIN ORAL Take 1 mg by mouth daily at bedtime. polyethylene glycol 3350 (MIRALAX ORAL) Take by mouth. spironolactone (ALDACTONE) 25 mg tablet Take 1 tablet by mouth once daily. traZODone (DESYREL) 50 mg tablet Take 1 tablet by mouth daily at bedtime. cyanocobalamin (VITAMIN B-12) 1,000 mcg tab Take 1 tablet by mouth once daily. loratadine (CLARITIN ORAL) Take by mouth. (Patient not taking: Reported on 05/13/2023) naproxen sodium 220 mg cap Take by mouth as directed. latanoprost, PF, 0.005 % drop Use in eyes. aspirin, enteric coated (ADULT LOW DOSE ASPIRIN) 81 mg EC tablet Take 1 tablet by mouth once daily. No current facility-administered medications on file prior to visit. Social History Social History Tobacco Use Smoking status: Former Current packs/day: 0.00 Average packs/day: 3.0 packs/day for 20.0 years (60.0 ttl pk-yrs) Types: Cigarettes Start date: 02/11/1956 Quit date: 02/11/1976 Years since quittin.0 Smokeless tobacco: Never Vaping Use Vaping status: Never Used Substance Use Topics Alcohol use: Yes Comment: very rare. maybe some during holidays Drug use: No Comment: denies tx Review of Symptoms REVIEW OF SYSTEMS GENERAL: No unintentional weight loss, malaise or fevers HEENT: Negative for frequent or significant headaches, No changes in hearing or vision, no nose bleeds or other. Did see ENT and was placed on Astelin NS and Muccinex and still no benefit. NECK: Negative for lumps, goiter, pain and significant neck swelling RESPIRATORY: Negative for cough, hemoptysis, wheezing, COPD, dyspnea or shortness of breath CARDIOVASCULAR: Negative for chest pain, leg swelling, hypertension, CHF or palpitations GI: No nausea, vomiting, or diarrhea, No heartburn or reflux symptoms, and no blood : No history of dysuria, frequency or blood MUSCULOSKELETAL: Negative for joint pain or swelling, back pain or muscle pain SKIN: has one on the right side of torso and left dorsal wrist. PSYCH: Negative for sleep disturbance, mood disorder and recent psychosocial stressors HEMATOLOGY/LYMPHOLOGY: Negative for prolonged bleeding, bruising easily or swollen nodes ENDOCRINE: Negative for cold or heat intolerance, polyuria, polydipsia and goiter NEURO: No history of headaches, syncope, paralysis, seizures or tremors EXAM: BP 156/78 Pulse 62 Resp 18 Ht 172.7 cm (5' 8) Wt 102.5 kg (226 lb) BMI 34.36 kg/m BP 130/73 Pulse 62 Resp 18 Ht 172.7 cm (5' 8) Wt 102.5 kg (226 lb) BMI 34.36 kg/m Last 5 Encounter Wt Readings: Date: Wt: 02/16/2024 102.5 kg (226 lb) 07/22/2023 106.6 kg (235 lb) 05/13/2023 105.7 kg (233 lb) 01/20/2023 106.6 kg (235 lb) 07/19/2022 105.7 kg (233 lb) General Appearance: Well appearing, alert, in no acute distress, well-hydrated, well nourished. and Obese. Skin: Skin color, texture, turgor normal, no suspicious rashes. Has a suspected AK on the dorsal left wrist region. Head: Normocephalic, no masses, lesions, tenderness or abnormalities. Eyes: Anicteric sclera. Pupils are equally round and reactive to light. Extraocular movements are intact. . Ears: External ears, canals normal, canals clear. Nose/Sinuses: Nares normal, septum midline, mucosa normal, no drainage or sinus tenderness. Oropharynx: Lips, mucosa, and tongue normal, teeth and gums normal, oropharynx normal. Neck: Supple, no adenopathy; thyroid symmetric, normal size, no bruits. Lungs: Lungs clear to auscultation. No wheezing, rhonchi, rales.. Heart: RRR without murmur, gallop, or rubs. No ectopy. Abdomen: Normal abdominal exam, Abdomen soft, non-tender. Bowel sounds normal. No masses, organomegaly. Extremities: No deformities, edema, skin discoloration, Good capillary refill. . Musculoskeletal: Muscular strength intact, No joint swelling, deformity, or tenderness. Peripheral Pulses: Normal. Neurologic: Gait normal. Reflexes normal and symmetric. Sensation to light touch and crainal nerves 2-12 intact.. Genitalia: declined. . Health Maintenance List Depression Screening Never done Anxiety Screening Never done DTaP,Tdap,Td Vaccine(1 - Tdap) due on 03/14/1998 RSV Vaccine(1 - 1-dose 75+ series) Never done Shingrix Vaccine(2 of 3) due on 09/07/2012 Advance Directive Discussion due on 02/11/2024 Diabetes Screening due on 02/11/2027 Influenza Vaccine Completed Covid-19 Vaccine Completed Pneumococcal Vaccine: 50+ Completed HPV Vaccine Aged Out Data reviewed Latest Ref Rn 07/18/2023 02/12/2024 WBC 3.70 - 11.00 k/uL 9.32 8.05 RBC 4.20 - 6.00 m/uL 5.12 4.95 Hemoglobin 13.0 - 17.0 g/dL 16.3 15.8 Hematocrit 39.0 - 51.0 % 49.3 47.2 MCV 80.0 - 100.0 fL 96.3 95.4 MCH 26.0 - 34.0 pg 31.8 31.9 MCHC 30.5 - 36.0 g/dL 33.1 33.5 RDW-CV 11.5 - 15.0 % 12.6 12.7 Platelet Count 150 - 400 k/uL 348 317 MPV 9.0 - 12.7 fL 9.5 9.7 Neut% % 62.0 59.4 Abs Neut (ANC) 1.45 - 7.50 k/uL 5.78 4.78 Lymph% % 25.2 27.7 Abs Lymph 1.00 - 4.00 k/uL 2.35 2.23 Armstrong% % 8.8 9.2 Abs Armstrong <0.87 k/uL 0.82 0.74 Eosin% % 2.3 2.1 Abs Eosin <0.46 k/uL 0.21 0.17 Baso% % 0.5 0.5 Abs Baso <0.11 k/uL 0.05 0.04 Immature Gran % % 1.2 1.1 IMMATURE GRANS (ABS) <0.10 k/uL 0.11 (H) 0.09 NRBC /100 WBC 0.0 0.0 Absolute nRBC <0.01 k/uL <0.01 <0.01 DTYPE Auto Auto Color Yellow Yellow Clarity Clear Clear Glucose, Urine Negative Negative Bilirubin, Urine Negative Negative Ketones, Urine Negative Trace ! Specific [place], Ur 1.005 - 1.030 1.025 Hemoglobin/Blood,Ur Negative Negative pH, Urine <8.5 5.5 Protein, Urine Negative Negative Urobilinogen 0.2-1.0 EU/dL 0.2 EU/dL Nitrites Negative Negative Leukest Negative Negative WBC, Urine 0-5 /HPF 0-5 /HPF RBC, Urine 0-2 /HPF 0-2 /HPF Bacteria Negative /HPF Negative Epithelial Cells /HPF None Seen Hyaline Cast 0 /LPF 1-3 /LPF ! Protein, Total 6.3 - 8.0 g/dL 7.0 6.7 Albumin 3.9 - 4.9 g/dL 4.3 4.2 Calcium 8.5 - 10.2 mg/dL 9.8 9.4 Bilirubin, Total 0.2 - 1.3 mg/dL 0.4 0.5 Alkaline Phosphatase 38 - 113 U/L 55 45 AST 11 (L) -- ALT 10 - 54 U/L 12 17 Glucose 74 - 99 mg/dL 117 (H) 100 (H) BUN 9 - 24 mg/dL 33 (H) 27 (H) Creatinine 0.73 - 1.22 mg/dL 1.39 (H) 1.29 (H) Sodium 136 - 144 mmol/L 138 138 Potassium 3.7 - 5.1 mmol/L 4.8 5.1 Chloride 98 - 107 mmol/L 105 106 CO2 22 - 30 mmol/L 22 19 (L) Anion Gap 8 - 15 mmol/L 11 13 eGFR >=60 mL/min/1.73m 49 (L) 54 (L) Total Cholesterol, Nonfasting <200 mg/dL 194 207 (H) Triglycerides, Nonfasting <150 mg/dL 80 78 HDL Cholesterol, Nonfasting >39 mg/dL 58 58 LDL Cholesterol, Nonfasting <100 mg/dL 120 (H) 133 (H) Non HDL Cholesterol, Nonfasting <130 mg/dL 136 (H) 149 (H) VLDL Cholesterol, Nonfasting <30 mg/dL 16 16 Total Chol/HDL Ratio, Nonfasting <5.10 mg/dL 3.34 3.57 LDL/HDL Ratio, Nonfasting <2.54 mg/dL 2.07 2.29 Hemoglobin A1C 4.3 - 5.6 % 5.7 (H) 5.5 Estimated Average Glucose mg/dL 117 111 A/P ASSESSMENT/PLAN: 1. Medicare annual wellness visit, subsequent - ICD9: V70.0, ICD10: Z00.00 (primary diagnosis) - Counseled on healthy diet and regular exercise - Discussed need for and benefit of weight loss. BMI 34.36 kg/(m^2) - Follow up for annual exam in one year - advised on Shingrix, RSV and Tdap vaccinations. 2. Essential hypertension - ICD9: 401.9, ICD10: I10 - Controlled - Continue current medications - Recommend home blood pressure monitoring, to bring results to next visit - Encouraged sodium restriction, DASH or Mediterranean diet - Recommend regular aerobic exercise - Discussed need for and benefit of weight loss. BMI 34.36 kg/(m^2) 3. Mixed hyperlipidemia - ICD9: 272.2, ICD10: E78.2 - Controlled - Counseled on healthy diet and regular exercise - Discussed need for and benefit of weight loss. BMI 34.36 kg/(m^2) 4. Elevated blood sugar - ICD9: 790.29, ICD10: R73.9 - improved with diet. 5. Stage 3a chronic kidney disease (HCC) - ICD9: 585.3, ICD10: N18.31 - eGFR: 54 Improving - Counseled on avoiding NSAIDs, adequate hydration - on a calcium channel guido. 6. Benign non-nodular prostatic hyperplasia without lower urinary tract symptoms - ICD9: 600.90, ICD10: N40.0 - stable 7. Low serum vitamin B12 - ICD9: 266.2, ICD10: E53.8 - cont replacement 8. Advance directive discussed with patient - ICD9: V65.49, ICD10: Z71.89 - needs to bring in copies. 9. Encounter for screening examination for other mental health and behavioral disorders - ICD9: V79.8, ICD10: Z13.39 - ANXIETY SCREENING 10. Screening for depression - ICD9: V79.0, ICD10: Z13.31 - DEPRESSION SCREENING 11. AK (actinic keratosis) - ICD9: 702.0, ICD10: L57.0 - discussed cryo and verbal consent given. Area treated with cryo with a 40 sec thaw phase. Patient tolerated well. Advised him if it does not resolve he should see derm. 12. Chronic insomnia - ICD9: 780.52, ICD10: F51.04 Patient will retry the trazodone 50 mg QHS with the melatonin F/u 6 months routine check Lipoid, A1c, B 12 and BMP prior. I spent a total of 40 minutes on the date of the service which included preparing to see the patient, [id number] patient care, completing clinical documentation, performing a medically appropriate examination, counseling and educating the patient/family/caregiver and ordering medications, tests, or procedures. Cade Laureano MD documented in this encounter [facility] 02-16-2024 Note HNO ID: [id number] Author: CADE LAUREANO MD Service: ? Author Type: Physician Type: Progress Notes Filed: 02/16/2024 20:13 Note Text: Jenifer Perez is a 88 year old male here for a Medicare wellness visit. Medicare Health Risk Assessment General Health Very good Exercise: Minutes/Day 0 min Exercise: Days/Week never Alcohol: Daily Use Never Alcohol: Drinks/Day Patient does not drink Alcohol: 6 or more drinks Never Feel off balance No Concerns: Teeth/Dentures No Concerns: Sexual function No Troubled by feelings None of the above Frequency: Eating healthy diet Nearly every day ADLs requiring help None of the above Safety precautions in home/vehicle No Smoke, vape, chews tobacco No Difficulty hearing No Difficulty seeing No Current Providers Specialists: I have reviewed specialist-related care of the patient in the medical record. Current care team: Patient Care Team: Cade Laureano MD as PCP - General (Family Medicine) Maday Beckman APRN.CORPORATE REAL ESTATE SPECIALIST as Political Geographer (Family Medicine) Destiney Pichardo PA-C as Political Geographer (Family Medicine) Medical/Family history review Reviewed and updated problem list, medical/surgical/family/social history, medications, and allergies. Opioid use review Opioid Medications (last 90 days) No data to display Anxiety/Depression screening PHQ-2 Score: 0 (Lower risk for depression) Recommendation: no further intervention at this time Cognitive screening Score: 5 Cognitive screening reviewed and No further action needed (score 3-5). Functional Observation Was the patient's Timed Up AND Go test unsteady or >= 12 seconds? No Advance Care Planning Surrogate decision maker and/or advance care plan documented Measurements BP 156/78 Pulse 62 Resp 18 Ht 172.7 cm (5' 8) Wt 102.5 kg (226 lb) BMI 34.36 kg/m? Vision Screening: Follows with optometry/ophthalmology Assessment/Plan Medicare annual wellness visit, subsequent (Z00.00) - Counseled on healthy diet and regular exercise - Fall avoidance information provided - Personalized prevention plan provided See Below Chief Complaint Patient presents with: Medicare Wellness Exam HPI Jenifer Perez is a 88 year old male who presents here today for Chronic Medical Conditions. and Medicare Annual Visit. Patient with hx of HTN, hyperlipidemia, CKD, low b12, allergies and those as below. Patient has been doing well. No new issues or concerns. Past medical history, appointments, medications, allergies reviewed. Previous Medical History PAST MEDICAL HISTORY Diagnosis Date Allergic rhinitis 07/19/2022 Basal cell carcinoma of skin 05/09/2015 Right ear 02/2015 by Phong Bonilla. Benign non-nodular prostatic hyperplasia without lower urinary tract symptoms 11/08/2014 Elevated blood sugar 03/03/2019 Essential hypertension 11/08/2014 08/14/2016: Home BP Cuff Validated. 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 Renal insufficiency 01/29/2016 Advised to avoid NSAID's 01/29/2016 SPINAL STENOSIS-LUMBAR 05/21/2000 Stage 3a chronic kidney disease (HCC) 01/29/2016 Advised to avoid NSAID's 01/29/2016 Previous Surgical History PAST SURGICAL HISTORY Procedure Laterality Date ARTHRP ACETBLR/PROX FEM PROSTC AGRFT/ALGRFT 09/21/13 right PAST SURGICAL HISTORY OF 02/2015 skin cancer right ear TOTAL HIP REPLACEMENT 01/2014 Lt Family History FAMILY HISTORY Problem Relation Age of Onset Alzheimer's Disease Mother Arthritis Mother Cancer Father wicho cell - face Lipids Father Hypertension Father Diabetes Brother Cancer Brother lung Heart Brother Lipids Brother Hypertension Brother other (arthritis) Daughter psoratic Patient Allergies ALLERGIES Allergen Reactions Altace [Ramipril] Cough Cough Ciprofloxacin Diarrhea Hctz [Thiazides] Other: See Comments hypokalemia Current Medications Current Outpatient Medications on File Prior to Visit Medication Sig verapamil SR (CALAN SR) 240 mg CR tablet Take 1 tablet by mouth two times a day. fenofibrate nanocrystallized (TRICOR) 145 mg tablet Take 1 tablet by mouth once daily. Ipratropium [place] (ATROVENT) 21 mcg (0.03 %) nasal spray Use 2 Sprays in the nose every 12 hours. guaiFENesin (MUCINEX) 600 mg 12 hr tablet Take 2 tablets by mouth two times a day. montelukast (SINGULAIR) 10 mg tablet Take 1 tablet by mouth daily at bedtime. MELATONIN ORAL Take 1 mg by mouth daily at bedtime. polyethylene glycol 3350 (MIRALAX ORAL) Take by mouth. spironolactone (ALDACTONE) 25 mg tablet Take 1 tablet by mouth once daily. traZODone (DESYREL) 50 mg tablet Take 1 tablet by mouth daily at bedtime. cyanocobalamin (VITAMIN B-12) 1,000 mcg tab Take 1 tablet by mouth once daily. loratadine (CLARITI (more content not included)... [facility] 01-22-2024 Telephone encounter Note The patient has been identified by name and date of : Yes Caregiver verified no other encounters exist for this prescription request: Yes Caregiver confirmed with patient/requestor that no other refills are due, in the near future, with this provider at this time: Yes The last office visit in the department: 07/22/2023 Does the patient have a future office visit with this provider/department: Yes 02/16/2024 Requested Prescriptions Pending Prescriptions Disp Refills verapamil SR (CALAN SR) 240 mg CR tablet 180 tablet 1 Sig: Take 1 tablet by mouth two times a day. Aylin Augustine RN January 22, 2024 9:32 AM [facility] 01-22-2024 Miscellaneous Notes The patient has been identified by name and date of : Yes Caregiver verified no other encounters exist for this prescription request: Yes Caregiver confirmed with patient/requestor that no other refills are due, in the near future, with this provider at this time: Yes The last office visit in the department: 07/22/2023 Does the patient have a future office visit with this provider/department: Yes 02/16/2024 Requested Prescriptions Pending Prescriptions Disp Refills verapamil SR (CALAN SR) 240 mg CR tablet 180 tablet 1 Sig: Take 1 tablet by mouth two times a day. Aylin Augustine RN January 22, 2024 9:32 AM documented in this encounter [facility] 01-02-2024 Telephone encounter Note The patient has been identified by name and date of : Yes Caregiver verified no other encounters exist for this prescription request: Yes Caregiver confirmed with patient/requestor that no other refills are due, in the near future, with this provider at this time: Yes The last office visit in the department: 07/22/2023 Does the patient have a future office visit with this provider/department: Yes 02/16/2024 Requested Prescriptions Pending Prescriptions Disp Refills fenofibrate nanocrystallized (TRICOR) 145 mg tablet 90 tablet 1 Sig: Take 1 tablet by mouth once daily. Aylin Augustine RN January 02, 2024 9:30 AM [facility] 01-02-2024 Miscellaneous Notes The patient has been identified by name and date of : Yes Caregiver verified no other encounters exist for this prescription request: Yes Caregiver confirmed with patient/requestor that no other refills are due, in the near future, with this provider at this time: Yes The last office visit in the department: 07/22/2023 Does the patient have a future office visit with this provider/department: Yes 02/16/2024 Requested Prescriptions Pending Prescriptions Disp Refills fenofibrate nanocrystallized (TRICOR) 145 mg tablet 90 tablet 1 Sig: Take 1 tablet by mouth once daily. Aylin Augustine RN January 02, 2024 9:30 AM documented in this encounter [facility] 08-25-2023 Telephone encounter Note Pt called and is notified of providers message. Pt voices understanding. Nelly Lindo RN [facility] 08-25-2023 Miscellaneous Notes Pt called and is notified of providers message. Pt voices understanding. Nelly Lindo RN No concerns from those medications. Patient calling to update ERNA Cheung that he saw CHRISTY Coyne, as advised. States provider recommended he take Mucinex twice daily. He also states the provider ordered him Ipratropium [place] nasal spray, 2 sprays each nostril twice daily and he was advised to ask Destiney if this nasal spray would be ok to use with his other medications? Please advise patient. [phone]. Thank you. documented in this encounter [facility] 08-25-2023 Telephone encounter Note No concerns from those medications. [facility] 08-25-2023 Telephone encounter Note Patient calling to update ERNA Cheung that he saw Dr. Patel, ENT, as advised. States provider recommended he take Mucinex twice daily. He also states the provider ordered him Ipratropium [place] nasal spray, 2 sprays each nostril twice daily and he was advised to ask Destiney if this nasal spray would be ok to use with his other medications? Please advise patient. [phone]. Thank you. [facility] 07-29-2023 Telephone encounter Note Prescription Refill Information The patient has been identified by name and date of : Yes Caregiver verified no other encounters exist for this prescription request: Yes Caregiver confirmed with patient/requestor that no other refills are due, in the near future, with this provider at this time: Yes The last office visit in the department: 07/22/23 Does the patient have a future office visit with this provider/department: Yes Requested Prescriptions Pending Prescriptions Disp Refills montelukast (SINGULAIR) 10 mg tablet 90 tablet 1 Sig: Take 1 tablet by mouth daily at bedtime. Viri Croft July 29, 2023 11:34 AM [facility] 07-29-2023 Miscellaneous Notes Prescription Refill Information The patient has been identified by name and date of : Yes Caregiver verified no other encounters exist for this prescription request: Yes Caregiver confirmed with patient/requestor that no other refills are due, in the near future, with this provider at this time: Yes The last office visit in the department: 07/22/23 Does the patient have a future office visit with this provider/department: Yes Requested Prescriptions Pending Prescriptions Disp Refills montelukast (SINGULAIR) 10 mg tablet 90 tablet 1 Sig: Take 1 tablet by mouth daily at bedtime. Viri Croft July 29, 2023 11:34 AM documented in this encounter [facility] 07-22-2023 History of Presen t illness Narrative Chief Complaint Patient presents with: 6 Month Exam HPI Jenifer Peerz is a 87 year old male who presents here today for Chronic Medical Conditions.. Patient with hx of HTN, hyperlipidemia, CKD, low b12, allergies and those as below. Patient has been trying melatonin for sleep but continues to struggle. Otherwise doing well. Past medical history, appointments, medications, allergies reviewed. Previous Medical History PAST MEDICAL HISTORY Diagnosis Date Allergic rhinitis 07/19/2022 Basal cell carcinoma of skin 05/09/2015 Right ear 02/2015 by Phong Bonilla. Benign non-nodular prostatic hyperplasia without lower urinary tract symptoms 11/08/2014 Elevated blood sugar 03/03/2019 Essential hypertension 11/08/2014 08/14/2016: Home BP Cuff Validated. 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 Renal insufficiency 01/29/2016 Advised to avoid NSAID's 01/29/2016 SPINAL STENOSIS-LUMBAR 05/21/2000 Stage 3a chronic kidney disease (HCC) 01/29/2016 Advised to avoid NSAID's 01/29/2016 Previous Surgical History PAST SURGICAL HISTORY Procedure Laterality Date ARTHRP ACETBLR/PROX FEM PROSTC AGRFT/ALGRFT 09/21/13 right PAST SURGICAL HISTORY OF 02/2015 skin cancer right ear TOTAL HIP REPLACEMENT 01/2014 Lt Family History FAMILY HISTORY Problem Relation Age of Onset Alzheimer's Disease Mother Arthritis Mother Cancer Father wicho cell - face Lipids Father Hypertension Father Diabetes Brother Cancer Brother lung Heart Brother Lipids Brother Hypertension Brother other (arthritis) Daughter psoratic Patient Allergies ALLERGIES Allergen Reactions Altace [Ramipril] Cough Cough Ciprofloxacin Diarrhea Hctz [Thiazides] Other: See Comments hypokalemia Current Medications Current Outpatient Medications on File Prior to Visit Medication Sig MELATONIN ORAL Take 1 mg by mouth daily at bedtime. polyethylene glycol 3350 (MIRALAX ORAL) Take by mouth. fenofibrate nanocrystallized (TRICOR) 145 mg tablet Take 1 tablet by mouth once daily. cyanocobalamin (VITAMIN B-12) 1,000 mcg tab Take 1 tablet by mouth once daily. montelukast (SINGULAIR) 10 mg tablet Take 1 tablet by mouth daily at bedtime. spironolactone (ALDACTONE) 25 mg tablet Take 1 tablet by mouth once daily. verapamil SR (CALAN SR) 240 mg CR tablet Take 1 tablet by mouth two times a day. naproxen sodium 220 mg cap Take by mouth as directed. latanoprost, PF, 0.005 % drop Use in eyes. aspirin, enteric coated (ADULT LOW DOSE ASPIRIN) 81 mg EC tablet Take 1 tablet by mouth once daily. senna-docusate (SENNA WITH DOCUSATE SODIUM) 8.6-50 mg per tablet Take 1 tablet by mouth two times a day. (Patient not taking: Reported on 07/22/2023) montelukast (SINGULAIR) 10 mg tablet Take 10 mg by mouth daily at bedtime. (Patient not taking: Reported on 07/22/2023) loratadine (CLARITIN ORAL) Take by mouth. (Patient not taking: Reported on 05/13/2023) No current facility-administered medications on file prior to visit. Social History Social History Tobacco Use Smoking status: Former Packs/day: 3.00 Years: 20.00 Additional pack years: 0.00 Total pack years: 60.00 Types: Cigarettes Quit date: 02/11/1976 Years since quittin.4 Smokeless tobacco: Never Vaping Use Vaping Use: Never used Substance Use Topics Alcohol use: Yes Comment: very rare. maybe some during holidays Drug use: No Comment: denies tx Review of Symptoms REVIEW OF SYSTEMS GENERAL: No weight loss, malaise or fevers NECK: Negative for lumps, goiter, pain and significant neck swelling RESPIRATORY: Negative for cough, hemoptysis, wheezing, COPD, dyspnea or shortness of breath CARDIOVASCULAR: Negative for chest pain, leg swelling, hypertension, CHF or palpitations NEURO: No history of headaches, syncope, paralysis, seizures or tremors EXAM: BP 128/66 (BP Site: Left Arm, BP Position: Sitting, BP Cuff Size: Large Adult) Pulse 74 Resp 18 Wt 106.6 kg (235 lb) SpO2 96% BMI 37.77 kg/m General Appearance: Well appearing, alert, in no acute distress, well-hydrated, well nourished. and Overweight. Neck: Supple, no adenopathy; thyroid symmetric, normal size, no bruits. Lungs: Lungs clear to auscultation. No wheezing, rhonchi, rales.. Heart: RRR without murmur, gallop, or rubs. No ectopy. Extremities: No deformities, edema, skin discoloration, clubbing or cyanosis. Good capillary refill. . Peripheral Pulses: Normal. Health Maintenance List RSV Vaccine(1 - 1-dose 60+ series) Never done DTaP,Tdap,Td Vaccine(1 - Tdap) due on 03/14/1998 Shingrix Vaccine(2 of 3) due on 09/07/2012 Advance Directive Discussion due on 02/10/2023 Behavioral Health Screening Never done Covid-19 Vaccine( season) due on 04/20/2023 Diabetes Screening due on 07/17/2026 Influenza Vaccine Completed Pneumococcal Vaccine: 65+ Completed HPV Vaccine Aged Out Data reviewed Latest Ref Rng 05/15/2023 07/18/2023 WBC 3.70 - 11.00 k/uL 9.32 RBC 4.20 - 6.00 m/uL 5.12 Hemoglobin 13.0 - 17.0 g/dL 16.3 Hematocrit 39.0 - 51.0 % 49.3 MCV 80.0 - 100.0 fL 96.3 MCH 26.0 - 34.0 pg 31.8 MCHC 30.5 - 36.0 g/dL 33.1 RDW-CV 11.5 - 15.0 % 12.6 Platelet Count 150 - 400 k/uL 348 MPV 9.0 - 12.7 fL 9.5 Neut% % 62.0 Abs Neut (ANC) 1.45 - 7.50 k/uL 5.78 Lymph% % 25.2 Abs Lymph 1.00 - 4.00 k/uL 2.35 Armstrong% % 8.8 Abs Armstrong <0.87 k/uL 0.82 Eosin% % 2.3 Abs Eosin <0.46 k/uL 0.21 Baso% % 0.5 Abs Baso <0.11 k/uL 0.05 Immature Gran % % 1.2 IMMATURE GRANS (ABS) <0.10 k/uL 0.11 (H) NRBC /100 WBC 0.0 Absolute nRBC <0.01 k/uL <0.01 DTYPE Auto Color Yellow Yellow Clarity Clear Clear Glucose, Urine Negative Negative Bilirubin, Urine Negative Negative Ketones, Urine Negative Trace ! Specific [place], Ur 1.005 - 1.030 1.025 Hemoglobin/Blood,Ur Negative Negative pH, Urine <8.5 5.5 Protein, Urine Negative Negative Urobilinogen 0.2-1.0 EU/dL 0.2 EU/dL Nitrites Negative Negative Leukest Negative Negative WBC, Urine 0-5 /HPF 0-5 /HPF RBC, Urine 0-2 /HPF 0-2 /HPF Bacteria Negative /HPF Negative Epithelial Cells /HPF None Seen Hyaline Cast 0 /LPF 1-3 /LPF ! Protein, Total 6.3 - 8.0 g/dL 7.2 7.0 Albumin 3.9 - 4.9 g/dL 4.4 4.3 Calcium 8.5 - 10.2 mg/dL 9.9 9.8 Bilirubin, Total 0.2 - 1.3 mg/dL 0.5 0.4 Alkaline Phosphatase 38 - 113 U/L 50 55 AST 14 - 40 U/L -- 11 (L) ALT 10 - 54 U/L 19 12 Glucose 74 - 99 mg/dL 112 (H) 117 (H) BUN 9 - 24 mg/dL 28 (H) 33 (H) Creatinine 0.73 - 1.22 mg/dL 1.23 (H) 1.39 (H) Sodium 136 - 144 mmol/L 138 138 Potassium 3.7 - 5.1 mmol/L 5.0 4.8 Chloride 98 - 107 mmol/L 105 105 CO2 22 - 30 mmol/L 23 22 Anion Gap 8 - 15 mmol/L 10 11 eGFR >=60 mL/min/1.73m 57 (L) 49 (L) Total Cholesterol, Nonfasting <200 mg/dL 194 Triglycerides, Nonfasting <150 mg/dL 80 HDL Cholesterol, Nonfasting >39 mg/dL 58 LDL Cholesterol, Nonfasting <100 mg/dL 120 (H) Non HDL Cholesterol, Nonfasting <130 mg/dL 136 (H) VLDL Cholesterol, Nonfasting <30 mg/dL 16 Total Chol/HDL Ratio, Nonfasting <5.10 mg/dL 3.34 LDL/HDL Ratio, Nonfasting <2.54 mg/dL 2.07 Hemoglobin A1C 4.3 - 5.6 % 5.7 (H) Estimated Average Glucose mg/dL 117 ASSESSMENT/PLAN: 1. Essential hypertension - ICD9: 401.9, ICD10: I10 (primary diagnosis) - Controlled - Continue current medications - Recommend home blood pressure monitoring, to bring results to next visit - Encouraged sodium restriction, DASH or Mediterranean diet - Recommend regular aerobic exercise - VERAPAMIL ER (SR) 240 MG TABLET,EXTENDED RELEASE - SPIRONOLACTONE 25 MG TABLET - COMPREHENSIVE METABOLIC PANEL - URINALYSIS, WITH MICROSCOPIC - COMPLETE BLOOD COUNT AND DIFFERENTIAL 2. Mixed hyperlipidemia - ICD9: 272.2, ICD10: E78.2 - Controlled - Counseled on healthy diet and regular exercise - LIPID PANEL, NONFASTING - COMPLETE BLOOD COUNT AND DIFFERENTIAL 3. Stage 3a chronic kidney disease (HCC) - ICD9: 585.3, ICD10: N18.31 - eGFR: 49 Stable - Counseled on avoiding NSAIDs, adequate hydration - COMPLETE BLOOD COUNT AND DIFFERENTIAL 4. Low serum vitamin B12 - ICD9: 266.2, ICD10: E53.8 - VITAMIN B12 5. Medication management - ICD9: V58.69, ICD10: Z79.899 6. Elevated blood sugar - ICD9: 790.29, ICD10: R73.9 - HEMOGLOBIN A1C - COMPLETE BLOOD COUNT AND DIFFERENTIAL 7. Chronic insomnia - ICD9: 780.52, ICD10: F51.04 Start trazodone. Follow up in 6 months wellness with labs prior. Destiney Pichardo PA-C documented in this encounter [facility] 07-09-2023 Telephone encounter Note Patient has been identified by name and date of : Yes, Provider Dr Laureano Date 07-09-23 Time 12:13p Patient phones for refill(s): Requested Prescriptions Pending Prescriptions Disp Refills fenofibrate nanocrystallized (TRICOR) 145 mg tablet 90 tablet 1 Sig: Take 1 tablet by mouth once daily. Date of last office visit in primary care: 05/13/2023 Date of next office visit in primary care: 07/22/2023 Please advise. Thank you. Chelita Croft. [facility] Work Phone: 07-09-2023 Miscellaneous Notes Patient has been identified by name and date of : Yes, Provider Dr Laureano Date 07-09-23 Time 12:13p Patient phones for refill(s): Requested Prescriptions Pending Prescriptions Disp Refills fenofibrate nanocrystallized (TRICOR) 145 mg tablet 90 tablet 1 Sig: Take 1 tablet by mouth once daily. Date of last office visit in primary care: 05/13/2023 Date of next office visit in primary care: 07/22/2023 Please advise. Thank you. Chelita Croft. documented in this encounter [facility] 05-20-2023 Miscellaneous Notes Pt notified of message from provider. Pt states understanding. Maggie Posey LPN Let patient know a script was sent to [facility] to take twice a day for his constipation. He should also increase his water intact. Goal would be 56-64 ounces a day. The following approved medication requests have been transmitted electronically. Requested Prescriptions Signed Prescriptions Disp Refills senna-docusate (SENNA WITH DOCUSATE SODIUM) 8.6-50 mg per tablet 60 tablet 5 Sig: Take 1 tablet by mouth two times a day. Authorizing Provider: CADE LAUREANO MD Spoke with pt and since using the Melatonin 1 mg he is now constipated. He uses the Melatonin every night. Asking what to take for the constipation. Violeta Martin LPN Called and left a message with the Pts for the Patient to call back and ask for a nurse to receive the providers message. Nelly Lindo RN I'm slightly confused my the note. Is he sating the melatonin has resolved his constipation or he still has issues with constipation. If wants to address constipation he needs seen for a visit. Patient notified and voiced understanding. Patient did note that the melatonin is helping with sleep but since being on the medication he is not constipated. Has not been able to go for over 2 years. Any recommendations? Alisha Marshall MA Factor V was negative. Destiney Pichardo PA-C documented in this encounter [facility] 05-15-2023 Miscellaneous Notes Spoke with patient. Given message from provider's office. Patient verbalizes understanding. Vicenta Moses RN Left message to call office. 05/15/2023 9:42 AM. Maggie Posey LPN Repeat potassium, calcium and kidney function is back to normal/baseline for him. Thanks. Destiney Pichardo PA-C documented in this encounter [facility] 05-14-2023 Miscellaneous Notes TC to patient who verbalized understanding of below. Patient agreeable to repeat lab work in 1 month. No further questions at this time. PAULINA Coronel Platelet count only mildly elevated. But we can repeat in 1 month to make sure stable or back in normal range. I'm typically not concerned unless platelets are consistently over 450. I'll recheck b12 level at that time as well. Patient notified and voiced understanding. Patient was wanting Factor V results. I noted still in process. Patient was also concerned about his platelets being elevated. Alisha Marshall MA Overall labs are okay. However his kidney function is slightly worse than his baseline. Potassium is slightly elevated and his calcium is a little high. I need him to hydrate and get labs repeat as soon as he can. His b12 is also lower than we like. Want to see it over 400 and he's at 267. Will have him start b12 1000mcg daily. Thanks. Destiney Pichardo PA-C documented in this encounter [facility] 05-13-2023 Instructions Destiney Pichardo PA-C - 05/13/2023 10:59 AM EDT Start 1mg of Melatonin 1-2 hrs before bed. After 2-3 days if no improvement increase to 2mg. Can keep titrating up as tolerated. If not improving after 2-4 weeks, please let me know. documented in this encounter [facility] 05-13-2023 History of Presen t illness Narrative Chief Complaint Patient presents with: Difficulty Sleeping HPI Jenifer Perez is a 87 year old male who presents here today for Above Complaints.. Patient states that over the past 2 weeks he has been struggling with sleep. Struggling to fall asleep. States does feel tired. He otherwise feels okay. No recent changes. Denies chest pain or shortness of breath. Also patient requesting testing for factor V. Has had multiple family member test positive for this. Also c/o of chronic sinus drainage. No improvement with antihistamine and singulair. Past medical history, appointments, medications, allergies reviewed. Previous Medical History PAST MEDICAL HISTORY Diagnosis Date Allergic rhinitis 07/19/2022 Basal cell carcinoma of skin 05/09/2015 Right ear 02/2015 by Phong Bonilla. Benign non-nodular prostatic hyperplasia without lower urinary tract symptoms 11/08/2014 Elevated blood sugar 03/03/2019 Essential hypertension 11/08/2014 08/14/2016: Home BP Cuff Validated. 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 Renal insufficiency 01/29/2016 Advised to avoid NSAID's 01/29/2016 SPINAL STENOSIS-LUMBAR 05/21/2000 Stage 3a chronic kidney disease (HCC) 01/29/2016 Advised to avoid NSAID's 01/29/2016 Previous Surgical History PAST SURGICAL HISTORY Procedure Laterality Date ARTHRP ACETBLR/PROX FEM PROSTC AGRFT/ALGRFT 09/21/13 right PAST SURGICAL HISTORY OF 02/2015 skin cancer right ear TOTAL HIP REPLACEMENT 01/2014 Lt Family History FAMILY HISTORY Problem Relation Age of Onset Alzheimer's Disease Mother Arthritis Mother Cancer Father wicho cell - face Lipids Father Hypertension Father Diabetes Brother Cancer Brother lung Heart Brother Lipids Brother Hypertension Brother other (arthritis) Daughter psoratic Patient Allergies ALLERGIES Allergen Reactions Altace [Ramipril] Cough Cough Ciprofloxacin Diarrhea Hctz [Thiazides] Other: See Comments hypokalemia Current Medications Current Outpatient Medications on File Prior to Visit Medication Sig montelukast (SINGULAIR) 10 mg tablet Take 1 tablet by mouth daily at bedtime. spironolactone (ALDACTONE) 25 mg tablet Take 1 tablet by mouth once daily. verapamil SR (CALAN SR) 240 mg CR tablet Take 1 tablet by mouth two times a day. fenofibrate nanocrystallized (TRICOR) 145 mg tablet Take 1 tablet by mouth once daily. naproxen sodium 220 mg cap Take by mouth as directed. latanoprost, PF, 0.005 % drop Use in eyes. aspirin, enteric coated (ADULT LOW DOSE ASPIRIN) 81 mg EC tablet Take 1 tablet by mouth once daily. montelukast (SINGULAIR) 10 mg tablet Take 10 mg by mouth daily at bedtime. loratadine (CLARITIN ORAL) Take by mouth. (Patient not taking: Reported on 05/13/2023) No current facility-administered medications on file prior to visit. Social History Social History Tobacco Use Smoking status: Former Packs/day: 3.00 Years: 20.00 Additional pack years: 0.00 Total pack years: 60.00 Types: Cigarettes Quit date: 02/11/1976 Years since quittin.2 Smokeless tobacco: Never Vaping Use Vaping Use: Never used Substance Use Topics Alcohol use: Yes Comment: very rare. maybe some during holidays Drug use: No Comment: denies tx Review of Symptoms REVIEW OF SYSTEMS See hpi EXAM: BP 144/80 (BP Site: Left Arm, BP Position: Sitting, BP Cuff Size: Large Adult) Pulse 79 Temp 36.1 C (96.9 F) (Right Tympanic) Resp 18 Wt 105.7 kg (233 lb) SpO2 97% BMI 37.45 kg/m BP 128/66 Pulse 79 Temp 36.1 C (96.9 F) (Right Tympanic) Resp 18 Wt 105.7 kg (233 lb) SpO2 97% BMI 37.45 kg/m General Appearance: Well appearing, alert, in no acute distress, well-hydrated, well nourished. and Obese. Lungs: Lungs clear to auscultation. No wheezing, rhonchi, rales.. Heart: RRR without murmur, gallop, or rubs. No ectopy. Health Maintenance List RSV Vaccine(1 - 1-dose 60+ series) Never done DTaP,Tdap,Td Vaccine(1 - Tdap) due on 03/14/1998 Shingrix Vaccine(2 of 3) due on 09/07/2012 Advance Directive Discussion due on 02/10/2023 Depression Assessment due on 02/10/2023 Diabetes Screening due on 01/17/2026 Influenza Vaccine Completed Covid-19 Vaccine Completed Pneumococcal Vaccine: 65+ Completed HPV Vaccine Aged Out Data reviewed ASSESSMENT/PLAN: 1. Primary insomnia - ICD9: 307.42, ICD10: F51.01 (primary diagnosis) Will have patient start with melatonin at night. If not helping, will consider sleep aid. - CBC + DIFF - TSH BLD - IRON + TIBC - BASIC METABOLIC PNL 2. Family history of factor V deficiency - ICD9: V18.3, ICD10: Z83.2 Check: - FACTOR V LEIDEN/PCR - IRON + TIBC 3. Fatigue, unspecified type - ICD9: 780.79, ICD10: R53.83 - TSH BLD - IRON + TIBC - FOLATE SERUM - VITAMIN B12 BLOOD 4. Stage 3a chronic kidney disease (HCC) - ICD9: 585.3, ICD10: N18.31 - CBC + DIFF - IRON + TIBC 5. Allergic rhinitis, unspecified seasonality, unspecified trigger - ICD9: 477.9, ICD10: J30.9 Patient would like to seen ent/regulatory affairs director for options. - CONSULT TO ENT Destiney Pichardo PA-C documented in this encounter [facility] 01-20-2023 Miscellaneous Notes Pt called and reports he was seen today. He wants his prescriptions to go to [facility] and asked to have [facility] removed from his pharmacy list. This was done. Please review and approve. Violeta Martin LPN documented in this encounter [facility] 01-20-2023 Miscellaneous Notes Addended by: MADAY BECKMAN on: 01/20/2023 10:26 AM Modules accepted: Orders documented in this encounter [facility] 01-20-2023 History of Presen t illness Narrative Jenifer Perez is a 87 year old male here for a Medicare wellness visit. Medicare Health Risk Assessment General Health Excellent Exercise: Minutes/Day 0 Exercise: Days/Week 0 does yard work and physical labor Alcohol: Daily Use None Alcohol: Drinks/Day None Alcohol: 6 or more drinks None Feel off balance No Concerns: Teeth/Dentures No Concerns: Sexual function Troubled by feelings No Frequency: Eating healthy diet Well balanced ADLs requiring help No Safety precautions in home/vehicle Yes Smoke, vape, chews tobacco No Difficulty hearing No Difficulty seeing No Current Providers Specialists: I have reviewed specialist-related care of the patient in the medical record. Medical/Family history review Reviewed and updated problem list, medical/surgical/family/social history, medications, and allergies. Opioid use review Opioid Medications (last 90 days) Some values may be hidden. Unless noted otherwise, only the newest values recorded on each date are displayed. Opioid Medications No data to display. Depression screening Depression Screening PHQ-2 Score MANASA-2 Total Score 01/17/2022 0 - Depression screening tool completed and reviewed. Based on score and interview, patient is not at risk for depression. Screening tool discussed with patient, and I recommended no further intervention at this time. Functional Observation Was the patient's timed Up & Go test unsteady or ? 12 seconds? No Advance Care Planning Surrogate decision maker and/or advance care plan documented Measurements BP 140/78 Pulse 90 Resp 16 Wt 235 lb (106.6kg) SpO2 98% Additional screenings: No results found. Assessment/Plan Medicare annual wellness visit, subsequent (Z00.00) - Counseled on healthy diet and regular exercise - Fall avoidance information provided - Personalized prevention plan provided - Discussed need for and benefit of weight loss. BMI 37.77 kg/(m^2) Chief Complaint No chief complaint on file. HPI Jenifer Perez is a 87 year old male who presents here today for Medicare Annual Visit. Patient presents for annual wellness exam. Patient reports he doing great and does not have any concerns regarding his health. Patient reports he needs refills of medications as well. Past medical history, appointments, medications, allergies reviewed. Previous Medical History PAST MEDICAL HISTORY Diagnosis Date Allergic rhinitis 07/19/2022 Basal cell carcinoma of skin 05/09/2015 Right ear 02/2015 by Phong Bonilla. Benign non-nodular prostatic hyperplasia without lower urinary tract symptoms 11/08/2014 Elevated blood sugar 03/03/2019 Essential hypertension 11/08/2014 08/14/2016: Home BP Cuff Validated. 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 Renal insufficiency 01/29/2016 Advised to avoid NSAID's 01/29/2016 SPINAL STENOSIS-LUMBAR 05/21/2000 Stage 3a chronic kidney disease (HCC) 01/29/2016 Advised to avoid NSAID's 01/29/2016 Previous Surgical History PAST SURGICAL HISTORY Procedure Laterality Date ARTHRP ACETBLR/PROX FEM PROSTC AGRFT/ALGRFT 09/21/13 right PAST SURGICAL HISTORY OF 02/2015 skin cancer right ear TOTAL HIP REPLACEMENT 01/2014 Lt Family History FAMILY HISTORY Problem Relation Age of Onset Alzheimer's Disease Mother Arthritis Mother Cancer Father wicho cell - face Lipids Father Hypertension Father Diabetes Brother Cancer Brother lung Heart Brother Lipids Brother Hypertension Brother other (arthritis) Daughter psoratic Patient Allergies ALLERGIES Allergen Reactions Altace [Ramipril] Cough Cough Ciprofloxacin Diarrhea Hctz [Thiazides] Other: See Comments hypokalemia Current Medications Current Outpatient Medications on File Prior to Visit Medication Sig fenofibrate nanocrystallized (TRICOR) 145 mg tablet Take 1 tablet by mouth once daily. verapamil SR (CALAN SR) 240 mg CR tablet Take 1 tablet by mouth twice daily. spironolactone (ALDACTONE) 25 mg tablet Take 1 tablet by mouth once daily. montelukast (SINGULAIR) 10 mg tablet Take 1 tablet by mouth daily at bedtime. loratadine (CLARITIN ORAL) Take by mouth. naproxen sodium 220 mg cap Take by mouth as directed. latanoprost, PF, 0.005 % drop Use in eyes. aspirin, enteric coated (ADULT LOW DOSE ASPIRIN) 81 mg EC tablet Take 1 tablet by mouth once daily. No current facility-administered medications on file prior to visit. Social History Social History Tobacco Use Smoking status: Former Packs/day: 3.00 Years: 20.00 Additional pack years: 0.00 Total pack years: 60.00 Types: Cigarettes Quit date: 02/11/1976 Years since quittin.9 Smokeless tobacco: Never Vaping Use Vaping Use: Never used Substance Use Topics Alcohol use: Yes Comment: very rare. maybe some during holidays Drug use: No Comment: denies tx Review of Symptoms REVIEW OF SYSTEMS SEE HPI EXAM: BP 140/78 Pulse 90 Resp 16 Wt 106.6 kg (235 lb) SpO2 98% BMI 37.77 kg/m General Appearance: Well appearing, alert, in no acute distress, well-hydrated, well nourished.. Skin: Skin color, texture, turgor normal, no suspicious rashes or lesions. Neck: Supple, no adenopathy; thyroid symmetric, normal size, no bruits. Lungs: Lungs clear to auscultation. No wheezing, rhonchi, rales.. Heart: RRR without murmur, gallop, or rubs. No ectopy. Abdomen: Normal abdominal exam, Abdomen soft, non-tender. Bowel sounds normal. No masses, organomegaly Musculoskeletal: No joint swelling, deformity, or tenderness. Peripheral Pulses: Normal. Neurologic: Gait normal. Reflexes normal and symmetric. Sensation grossly intact.. Health Maintenance List RSV Vaccine(1 - 1-dose 60+ series) Never done DTaP,Tdap,Td Vaccine(1 - Tdap) due on 03/14/1998 Shingrix Vaccine(2 of 3) due on 09/07/2012 Advance Directive Discussion due on 02/10/2022 Depression Assessment due on 02/10/2022 Diabetes Screening due on 01/17/2026 Influenza Vaccine Completed Covid-19 Vaccine Completed Pneumococcal Vaccine: 65+ Completed HPV Vaccine Aged Out Data reviewed Component Latest Ref Rng & Units 01/17/2023 WBC 3.70 - 11.00 k/uL 7.85 RBC 4.20 - 6.00 m/uL 4.80 Hemoglobin 13.0 - 17.0 g/dL 15.4 Hematocrit 39.0 - 51.0 % 46.1 MCV 80.0 - 100.0 fL 96.0 MCH 26.0 - 34.0 pg 32.1 MCHC 30.5 - 36.0 g/dL 33.4 RDW-CV 11.5 - 15.0 % 12.9 Platelet Count 150 - 400 k/uL 355 MPV 9.0 - 12.7 fL 9.2 Neut% % 58.9 Abs Neut (ANC) 1.45 - 7.50 k/uL 4.62 Lymph% % 28.9 Abs Lymph 1.00 - 4.00 k/uL 2.27 Armstrong% % 8.5 Abs Armstrong <0.87 k/uL 0.67 Eosin% % 2.0 Abs Eosin <0.46 k/uL 0.16 Baso% % 0.4 Abs Baso <0.11 k/uL 0.03 Immature Gran % % 1.3 IMMATURE GRANS (ABS) <0.10 k/uL 0.10 (H) NRBC /100 WBC 0.0 Absolute nRBC <0.01 k/uL <0.01 DTYPE Auto Color Yellow Yellow Clarity Clear Clear Glucose, Urine Negative Negative Bilirubin, Urine Negative Negative Ketones, Urine Negative Negative Specific [place], Ur 1.005 - 1.030 1.023 Hemoglobin/Blood,Ur Negative Negative pH, Urine <8.5 5.5 Protein, Urine Negative Negative Urobilinogen 0.2-1.0 EU/dL 0.2 EU/dL Nitrites Negative Negative Leukest Negative Negative WBC, Urine 0-5 /HPF 0-5 /HPF RBC, Urine 0-2 /HPF 0-2 /HPF Bacteria Negative /HPF Negative Epithelial Cells /HPF None Seen Hyaline Cast 0 /LPF 0 /LPF Protein, Total 6.3 - 8.0 g/dL 6.6 Albumin 3.9 - 4.9 g/dL 4.4 Calcium 8.5 - 10.2 mg/dL 9.5 Bilirubin, Total 0.2 - 1.3 mg/dL 0.4 Alkaline Phosphatase 38 - 113 U/L 61 AST 14 - 40 U/L 13 (L) ALT 10 - 54 U/L 14 Glucose 74 - 99 mg/dL 118 (H) BUN 9 - 24 mg/dL 32 (H) Creatinine 0.73 - 1.22 mg/dL 1.47 (H) Sodium 136 - 144 mmol/L 139 Potassium 3.7 - 5.1 mmol/L 4.8 Chloride 97 - 105 mmol/L 107 (H) CO2 22 - 30 mmol/L 21 (L) Anion Gap 9 - 18 mmol/L 11 eGFR >=60 mL/min/1.73m 46 (L) Total Cholesterol, Nonfasting <200 mg/dL 171 Triglycerides, Nonfasting <150 mg/dL 59 HDL Cholesterol, Nonfasting >39 mg/dL 55 LDL Cholesterol, Nonfasting <100 mg/dL 104 (H) Non HDL Cholesterol, Nonfasting <130 mg/dL 116 VLDL Cholesterol, Nonfasting <30 mg/dL 12 Total Chol/HDL Ratio, Nonfasting <5.10 mg/dL 3.11 LDL/HDL Ratio, Nonfasting <2.54 mg/dL 1.89 Hemoglobin A1C 4.3 - 5.6 % 5.9 (H) Estimated Average Glucose mg/dL 123 ASSESSMENT/PLAN: 1. Medicare annual wellness visit, subsequent - ICD9: V70.0, ICD10: Z00.00 (primary diagnosis) - Counseled on healthy diet and regular exercise - Discussed need for and benefit of weight loss. BMI 37.77 kg/(m^2) - Depression screening tool completed and reviewed with patient. Based on score and interview, patient is not at risk for depression and recommended no further intervention at this time. - Follow up for annual exam in one year 2. Essential hypertension - ICD9: 401.9, ICD10: I10 - Controlled - Continue current medications - Recommend home blood pressure monitoring, to bring results to next visit - Encouraged sodium restriction, DASH or Mediterranean diet - Recommend regular aerobic exercise - Discussed need for and benefit of weight loss. BMI 37.77 kg/(m^2) - SPIRONOLACTONE 25 MG TABLET - VERAPAMIL ER (SR) 240 MG TABLET,EXTENDED RELEASE 3. Allergic rhinitis, unspecified seasonality, unspecified trigger - ICD9: 477.9, ICD10: J30.9 - MONTELUKAST 10 MG TABLET 4. Mixed hyperlipidemia - ICD9: 272.2, ICD10: E78.2 - Controlled - Continue current medications - Counseled on healthy diet and regular exercise - Discussed need for and benefit of weight loss. BMI 37.77 kg/(m^2) 5. Stage 3a chronic kidney disease (HCC) - ICD9: 585.3, ICD10: N18.31 - eGFR: 46 Stable - Counseled on avoiding NSAIDs, adequate hydration - Counseled on low sodium diet 6. 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 By making some changes, you can lower your chances of falling. Four things YOU can do to prevent falls for you* and your caregiver 1. Begin a regular exercise program Exercise is one of the most important ways to lower your chances of falling. It makes you stronger and helps you feel better. Exercises that improve balance and coordination (like Darryn Chi) are the most helpful. Lack of exercise leads to weakness and increases your chances of falling. Ask your doctor or health care provider about the best type of exercise program for you. 2. Have your health care provider review your medicines Have your doctor or pharmacist review all the medicines you take, even [id number] medicines. As you get older, the way medicines work in your body can change. Some medicines, or combinations of medicines, can make you sleepy or dizzy and can cause you to fall. 3. Have your vision checked Have your eyes checked by an eye doctor at least once a year. You may be wearing the wrong glasses or have a condition like glaucoma or cataracts that limits your vision. Poor vision can increase your chances of falling. 4. Make your home safer About half of all falls happen at home. To make your home safer: Remove things you can trip over (like papers, books, clothes, and shoes) from stairs and places where you walk. Remove small throw rugs or use double-sided tape to keep the rugs from slipping. Keep items you use often in cabinets you can reach easily without using a step stool. Have grab bars put in next to your toilet and in the tub or shower. Use non-slip mats in the bathtub and on shower floors. Improve the lighting in your home. As you get older, you need brighter lights to see well. Hang light-weight curtains or shades to reduce glare. Have handrails and lights put in on all staircases. Wear shoes both inside and outside the house. Avoid going barefoot or wearing slippers. For more information, contact: Centers for Disease Control and Prevention www.cdc.gov/injury * This information may not apply if you have certain medical conditions. documented in this encounter [facility] 12-12-2021 Miscellaneous Notes Patient calling and states the [facility] reports they did not received the faxed handicap placard letters. Patient requesting the papers be faxed again to fax number below. Thank you. Faxed. Patient notified. Alisha Marshall MA Both letters printed and ready to be faxed. Patient calling asking for new handicap placard rx, needs 2 of them. The V would not take the rx from May said it was to old. He said rx can be faxed to [facility] at [phone]. Please call patient when rx for both are faxed so he can berry picker placards. Please advise documented in this encounter [facility] 11-30-2021 Miscellaneous Notes Patient went to ER. Patient reports he tested covid + today on home test and would like to take paxlovid. Reports symptoms started 2 days ago: cough, runny nose. Reports tested positive 3 days ago, and ER prescribed her paxlovid. Patient states he is unable to do [facility]. Advised to EC - patient agreeable. documented in this encounter [facility] 09-10-2021 Miscellaneous Notes Patient has been identified by name and date of : Yes Pending Prescriptions Disp Refills SPIRONOLACTONE 25 MG TABLET 90 tablet 2 Sig: Take 1 tablet by mouth once daily. CLAYTON: No RX INSTRUCTIONS: Patient aware RX will be sent to pharmacy. No need to notify patient. Lulu Martin Pss documented in this encounter [facility] 07-17-2021 Miscellaneous Notes Patient has been identified by name and date of : Yes Pending Prescriptions Disp Refills VERAPAMIL ER (SR) 240 MG TABLET,EXTENDED RELEASE 180 tablet 1 Sig: Take 1 tablet by mouth twice daily. CLAYTON: No FENOFIBRATE NANOCRYSTALLIZED 145 MG TABLET 90 tablet 1 Sig: Take 1 tablet by mouth once daily. CLAYTON: No RX INSTRUCTIONS: Patient aware RX will be sent to pharmacy. No need to notify patient. Narcisa Lincoln Pss documented in this encounter [facility] 05-21-2000 History of Past i llness Narrative Problem Noted Date Resolved Date Degeneration of lumbar or lumbosacral interverte bral disc 05/21/2000 11/06/2010 Other and unspecified hyperlipidemia 11/06/2010 documented as of this encounter (statuses as of 07/17/2021) [facility] History of Past illness Narrative* Problem Noted Date Resolved Date Degeneration of lumbar or lumbosacral interverte bral disc 05/21/2000 11/06/2010 Other and unspecified hyperlipidemia 11/06/2010 documented as of this encounter (statuses as of 09/10/2021) [facility] History of Past illness Narrative* Problem Noted Date Resolved Date Degeneration of lumbar or lumbosacral interverte bral disc 05/21/2000 11/06/2010 Other and unspecified hyperlipidemia 11/06/2010 documented as of this encounter (statuses as of 11/30/2021) [facility] History of Past illness Narrative* Problem Noted Date Resolved Date Degeneration of lumbar or lumbosacral interverte bral disc 05/21/2000 11/06/2010 Other and unspecified hyperlipidemia 11/06/2010 documented as of this encounter (statuses as of 12/12/2021) [address]11-[address] History of Past illness Narrative* Problem Noted Date Diagnosed Date Resolved Date Degeneration of lumbar or yolande mbosacral intervertebral disc 05/21/2000 11/06/2010 Other and unspecified hyperlipidemia 11/06/2010 documented as of this encounter (statuses as of 01/20/2023) [address] History of Past illness Narrative* Problem Noted Date Diagnosed Date Resolved Date Degeneration of lumbar or yolande mbosacral intervertebral disc 05/21/2000 11/06/2010 Other and unspecified hyperlipidemia 11/06/2010 documented as of this encounter (statuses as of 05/13/2023) [address] History of Past illness Narrative* Problem Noted Date Diagnosed Date Resolved Date Degeneration of lumbar or yolande mbosacral intervertebral disc 05/21/2000 11/06/2010 Other and unspecified hyperlipidemia 11/06/2010 documented as of this encounter (statuses as of 05/15/2023) [address] History of Past illness Narrative* Problem Noted Date Diagnosed Date Resolved Date Degeneration of lumbar or yolande mbosacral intervertebral disc 05/21/2000 11/06/2010 Other and unspecified hyperlipidemia 11/06/2010 documented as of this encounter (statuses as of 05/16/2023) [address] History of Past illness Narrative* Problem Noted Date Diagnosed Date Resolved Date Degeneration of lumbar or yolande mbosacral intervertebral disc 05/21/2000 11/06/2010 Other and unspecified hyperlipidemia 11/06/2010 documented as of this encounter (statuses as of 05/21/2023) [facility] [place] noteNo assessment information availableWCleveland Clinic Foundation Work Phone: Evaluation note* Diagnosis Medicare annual wellness visit, subsequent- Primary Routine general medical examination at a health care facility Essential hypertension Unspecified essential hypertension Allergic rhinitis, unspecified seasonality, unspecified trigger Mixed hyperlipidemia Stage 3a chronic kidney disease (HCC) Benign non-nodular prostatic hyperplasia without lower urinary tract symptoms Elevated blood sugar Other abnormal glucose documented in this encounter [facility] [place] [facility]* Diagnosis Allergic rhinitis, unspecified seasonality, unspecified trigger Essential hypertension Unspecified essential hypertension [facility] [place] [facility]* Diagnosis Primary insomnia- Primary Persistent disorder of initiating or maintaining sleep Family history of factor V deficiency Family history of other blood disorders Fatigue, unspecified type Stage 3a chronic kidney disease (HCC) Allergic rhinitis, unspecified seasonality, unspecified trigger documented in this encounter [facility] [place] [facility]* Diagnosis Hyperkalemia- Primary Hyperpotassemia Low serum vitamin B12 Elevated serum creatinine Other nonspecific findings on examination of blood Thrombocytosis Essential thrombocythemia documented [facility] this [facility] [place] [facility]* Diagnosis Essential hypertension- Primary Unspecified essential hypertension Mixed hyperlipidemia Stage 3a chronic kidney disease (HCC) Low serum vitamin B12 Medication management Encounter for long-term (current) use of other medications Elevated blood sugar Other abnormal glucose Chronic insomnia Insomnia, unspecified documented in this encounter [facility] [place] [facility]* Diagnosis Allergic rhinitis, unspecified seasonality, unspecified trigger documented in this encounter [facility] [place] [facility]* Diagnosis Essential hypertension Unspecified essential hypertension [facility] [place] [facility]* Diagnosis Medicare annual wellness visit, subsequent- Primary Routine general medical examination at a health care facility Essential hypertension Unspecified essential hypertension Mixed hyperlipidemia Elevated blood sugar Other abnormal glucose Stage 3a chronic kidney disease (HCC) Benign non-nodular prostatic hyperplasia without lower urinary tract symptoms Low serum vitamin B12 Advance directive discussed with patient Other specified counseling Encounter for screening examination for other mental health and behavioral disorders Screening for depression [place] (actinic keratosis) Actinic keratosis Chronic insomnia Insomnia, unspecified documented in this [facility] [place] [facility]* Diagnosis Essential hypertension Unspecified essential hypertension documented [facility] [place] [facility]* Diagnosis Essential hypertension- Primary Unspecified essential hypertension Mixed hyperlipidemia Stage 3a chronic kidney disease (HCC) Elevated blood sugar Other abnormal glucose Low serum vitamin B12 Disorder of prostate Unspecified disorder of prostate Medication management Encounter for long-term (current) use of other medications Hyperkalemia Hyperpotassemia Hypercalcemia Ex-smoker Personal history of tobacco use, presenting hazards to health documented in this encounter [facility] [place] [facility]* Diagnosis Vitamin D deficiency- Primary Unspecified vitamin D deficiency [facility] Additional Instructions Take medication as prescribed. Monitor for low oxygen levels.[facility] Work Phone: Hospital Discharge instructionsAdditional Instructions As long as it is helping you may continue to use the muscle cream as needed. Use the prescription pain medication for breakthrough pain if you need it. When you fill the prednisone, take it as prescribed until finished.[facility] Work Phone: Reason for referral (narrative)No reason for referral information availableWCleveland Clinic Foundation Work Phone: Chief Complaint and Reason for Visit Chief Complaint covid Chief Complaint Admit Date LEG September 21, 2024 9: 34am Advance Directives Advance Directive Response Recorded Date/ Time Advance Directives Yes January 12, 2014 5:16pm Living Will No November 29 12:41pm Power of Purse Seining Hand No November 29, 2021 12:41pm Advance Directive Response Recorded Date/ Time Do you have a Healthcare Power of Purse Seining Hand? No September 21, 2024 12:19pm Advance Directives Yes January 12, 2014 5:16pm Summary Purpose Family History No Family History Records FoundNo Family History Records Found Reason for Referral Specialty Diagnoses / Procedures Referred By Vinnie oropeza Referred To Contact Ent - Otolaryngology Diagnoses Allergic rhinitis, unspecified seasonality, unspecified trigger Procedures CONSULT TO ENT OFFICE/OUTPATIENT [facility] 60 MINUTES Destiney Pichardo PA-C [address] [place] [address] Referral ID Status Reason Start Date Expiration Date Visits Requested Visits Authorized [id number] Authorized PCP Requested Referral 05/13/2023 05/12/2024 1 1 Specialty Diagnoses / Procedures Referred By Vinnie oropeza Referred To Contact MOLECULAR & FUNCTIONAL IMAGING Diagnoses Family history of factor V deficiency Procedures FACTOR V LEIDEN/PCR F5 COAGULATION FACTOR V ANAL LEIDEN VARIANT Destiney Pichardo PA-C [address] [place] [address] Molecular & Functional Imaging [address] [place] [address] Referral ID Status Reason Start Date Expiration Date V isits Requested Visits Authorized [id number] Denied PCP Requested Referral Auto-Generated Referral 05/13/2023 08/11/2023 1 0 Additional Source Comments Source Comments (unrecognize d section and content) In the event this informatio n is protected by the Federal Confidentiality of Alcohol and Drug Abuse Patient Records regulations: The Federal rules restrict any use of the information to criminally investigate or prosecute any alcohol or drug abuse patient.[facility] HospitalIn the event this information is protected by the Federal Confidentiality of Alcohol and Drug Abuse Patient Records regulations: The Federal rules restrict any use of the information to criminally investigate or prosecute any alcohol or drug abuse patient.[facility] HospitalIn the event this information is protected by the Federal Confidentiality of Alcohol and Drug Abuse Patient Records regulations: The Federal rules restrict any use of the information to criminally investigate or prosecute any alcohol or drug abuse patient.[facility] HospitalIn the event this information is protected by the Federal Confidentiality of Alcohol and Drug Abuse Patient Records regulations: The Federal rules restrict any use of the information to criminally investigate or prosecute any alcohol or drug abuse patient.[facility] HospitalIn the event this information is protected by the Federal Confidentiality of Alcohol and Drug Abuse Patient Records regulations: The Federal rules restrict any use of the information to criminally investigate or prosecute any alcohol or drug abuse patient.[facility] HospitalIn the event this information is protected by the Federal Confidentiality of Alcohol and Drug Abuse Patient Records regulations: The Federal rules restrict any use of the information to criminally investigate or prosecute any alcohol or drug abuse patient.[facility] HospitalIn the event this information is protected by the Federal Confidentiality of Alcohol and Drug Abuse Patient Records regulations: The Federal rules restrict any use of the information to criminally investigate or prosecute any alcohol or drug abuse patient.[facility] HospitalIn the event this information is protected by the Federal Confidentiality of Alcohol and Drug Abuse Patient Records regulations: The Federal rules restrict any use of the information to criminally investigate or prosecute any alcohol or drug abuse patient.[facility] HospitalIn the event this information is protected by the Federal Confidentiality of Alcohol and Drug Abuse Patient Records regulations: The Federal rules restrict any use of the information to criminally investigate or prosecute any alcohol or drug abuse patient.[facility] HospitalIn the event this information is protected by the Federal Confidentiality of Alcohol and Drug Abuse Patient Records regulations: The Federal rules restrict any use of the information to criminally investigate or prosecute any alcohol or drug abuse patient.[facility] HospitalIn the event this information is protected by the Federal Confidentiality of Alcohol and Drug Abuse Patient Records regulations: The Federal rules restrict any use of the information to criminally investigate or prosecute any alcohol or drug abuse patient.[facility] HospitalIn the event this information is protected by the Federal Confidentiality of Alcohol and Drug Abuse Patient Records regulations: The Federal rules restrict any use of the information to criminally investigate or prosecute any alcohol or drug abuse patient.[facility] HospitalIn the event this information is protected by the Federal Confidentiality of Alcohol and Drug Abuse Patient Records regulations: The Federal rules restrict any use of the information to criminally investigate or prosecute any alcohol or drug abuse patient.[facility] HospitalIn the event this information is protected by the Federal Confidentiality of Alcohol and Drug Abuse Patient Records regulations: The Federal rules restrict any use of the information to criminally investigate or prosecute any alcohol or drug abuse patient.[facility] HospitalIn the event this information is protected by the Federal Confidentiality of Alcohol and Drug Abuse Patient Records regulations: The Federal rules restrict any use of the information to criminally investigate or prosecute any alcohol or drug abuse patient.[facility] HospitalIn the event this information is protected by the Federal Confidentiality of Alcohol and Drug Abuse Patient Records regulations: The Federal rules restrict any use of the information to criminally investigate or prosecute any alcohol or drug abuse patient.[facility] HospitalIn the event this information is protected by the Federal Confidentiality of Alcohol and Drug Abuse Patient Records regulations: The Federal rules restrict any use of the information to criminally investigate or prosecute any alcohol or drug abuse patient.[facility] HospitalIn the event this information is protected by the Federal Confidentiality of Alcohol and Drug Abuse Patient Records regulations: The Federal rules restrict any use of the information to criminally investigate or prosecute any alcohol or drug abuse patient.[facility] HospitalIn the event this information is protected by the Federal Confidentiality of Alcohol and Drug Abuse Patient Records regulations: The Federal rules restrict any use of the information to criminally investigate or prosecute any alcohol or drug abuse patient.[facility] HospitalIn the event this information is protected by the Federal Confidentiality of Alcohol and Drug Abuse Patient Records regulations: The Federal rules restrict any use of the information to criminally investigate or prosecute any alcohol or drug abuse patient.[facility] HospitalIn the event this information is protected by the Federal Confidentiality of Alcohol and Drug Abuse Patient Records regulations: The Federal rules restrict any use of the information to criminally investigate or prosecute any alcohol or drug abuse patient.[facility] HospitalIn the event this information is protected by the Federal Confidentiality of Alcohol and Drug Abuse Patient Records regulations: The Federal rules restrict any use of the information to criminally investigate or prosecute any alcohol or drug abuse patient.[facility] Reason for Visit (unrecogniz ed section and content) Reason Onset Date Comments Refill Request 07/17/2021 Reason Comments Refill Request Reason Comments Covid19 Concern Reason Comments handicap placard rx Reason Comments Medication Problem Reason Comments Difficulty Sleeping Reason Comments Results Reason Onset Date Comments Refill Request 07/09/2023 Reason Comments 6 Month Exam Reason Onset Date Comments Refill Request 07/29/2023 Reason Comments Patient Question Reason Onset Date Comments Refill Request 01/02/2024 Reason Onset Date Comments Refill Request 01/22/2024 Reason Comments Medicare Wellness Exam Reason Onset Date Comments Refill Request 03/05/2024 [email or web address] Reason Onset Date Comments Refill Request 04/20/2024 Reason Onset Date Comments Refill Request 07/19/2024 Reason Comments F/U 6 Month With lab review Reason Onset Date Comments Results 08/17/2024 Care Teams (unrecognized sec tion and content) Certified Endoscopy Technician Relationship Specialty Start Date End Date Cade Laureano MD [address] [place] [address] PCP - General Family Practice 11/05/13 Certified Endoscopy Technician Relationship Specialty Start Date End Date Cade Laureano MD [address] [place] [address] PCP - General Family Practice 11/05/13 Certified Endoscopy Technician Relationship Specialty Start Date End Date Cade Laureano MD [address] [place] [address] PCP - General Family Medicine 11/05/13 Certified Endoscopy Technician Relationship Specialty Start Date End Date Cade Laureano MD [address] [place] [address] PCP - General Family Medicine 11/05/13 Certified Endoscopy Technician Relationship Specialty Start Date End Date Cade Laureano MD [address] [place] [address] PCP - General Family Medicine 11/05/13 Certified Endoscopy Technician Relationship Specialty Start Date End Date Cade Laureano MD [address] [place] [address] PCP - General Family Medicine 11/05/13 Certified Endoscopy Technician Relationship Specialty Start Date End Date Cade Laureano MD [address] [place] [address] PCP - General Family Medicine 11/05/13 Certified Endoscopy Technician Relationship Specialty Start Date End Date Cade Laureano MD [address] [place] [address] PCP - General Family Medicine 11/05/13 Certified Endoscopy Technician Relationship Specialty Start Date End Date Cade Laureano MD [address] [place] [address] PCP - General Family Medicine 11/05/13 Certified Endoscopy Technician Relationship Specialty Start Date End Date Cade Laureano MD [address] [place] [address] PCP - General Family Medicine 11/05/13 Certified Endoscopy Technician Relationship Specialty Start Date End Date Cade Laureano MD [address] [place] [address] PCP - General Family Medicine 11/05/13 Certified Endoscopy Technician Relationship Specialty Start Date End Date Cade Laureano MD [address] [place] [id number] PCP - General Family Medicine 11/05/13 Certified Endoscopy Technician Relationship Specialty Start Date End Date Cade Laureano MD [address] [place] [address] PCP - General Family Medicine 11/05/13 Certified Endoscopy Technician Relationship Specialty Start Date End Date Cade Laureano MD [address] [place] [address] PCP - General Family Medicine 11/05/13 Maday Beckman APRN.CORPORATE REAL ESTATE SPECIALIST [address] [place] [address] Political Geographer Family Medicine 01/17/24 Destiney Pichardo PA-C [address] [place] [address] Political Geographer Family Medicine 01/17/24 Certified Endoscopy Technician Relationship Specialty Start Date End Date Cade Laureano MD [address] [place] [address] PCP - General Family Medicine 11/05/13 Maday Beckman, STEPHANIE.CORPORATE REAL ESTATE SPECIALIST [address] [place] [address] Political Geographer Family Medicine 01/17/24 Destiney Pichardo PA-C [address] [place] [address] [facility] 01/17/24 Certified Endoscopy Technician Relationship Specialty Start Date End Date Cade Laureano MD [address] [place] [address] PCP - General Family Medicine 11/05/13 Maday Beckman, GASOLINE TESTER.CORPORATE REAL ESTATE SPECIALIST [address] [place] [address] Political Geographer Family Medicine 01/17/24 Destiney Pichardo PA-C [address] [place] [address] Political Geographer Family Medicine 01/17/24 Certified Endoscopy Technician Relationship Specialty Start Date End Date Cade Laureano MD [address] [place] [address] PCP - General Family Medicine 11/05/13 Maday Beckman, GASOLINE TESTER.CORPORATE REAL ESTATE SPECIALIST [address] [place] [address] Political Geographer Family Medicine 01/17/24 Destiney Pichardo PA-C [address] [place] [address] Political Geographer Family Medicine 01/17/24 Certified Endoscopy Technician Relationship Specialty Start Date End Date Cade Laureano MD [address] [place] [address] PCP - General Family Medicine 05/17/24 Maday Beckman APRN.CORPORATE REAL ESTATE SPECIALIST [facility] [place] [address] Political Geographer Family Medicine 07/12/24 Destiney Pichardo PA-C [address] [place] [address] Political Geographer Family Medicine 07/12/24 Certified Endoscopy Technician Relationship Specialty Start Date End Date Cade Laureano MD [address] [place] [address] PCP - General Family Medicine 05/17/24 Maday Beckman, STEPHANIE.CORPORATE REAL ESTATE SPECIALIST [address] [place] [id number] Political Geographer Family Medicine 07/12/24 Destiney Pichardo PA-C [address] [place] [address] Political Geographer Family Medicine 07/12/24 Certified Endoscopy Technician Relationship Specialty Start Date End Date Cade Laureano MD [address] [place] [address] PCP - General Family Medicine 05/17/24 Maday Beckman, STEPHANIE.CORPORATE REAL ESTATE SPECIALIST [facility] [place] [address] Political Geographer [facility] 07/12/24 Destiney Pichardo PA-C [address] [facility] [place] [address] Formerly [facility] 07/12/24 Team Status: Active Member Role/Relationship Status Dates Dr. aCde Laureano MD Primary Care Provider Active Team Status: Inactive Member Role/Relationship Status Dates Dr. Cade Laureano MD Primary Care Provider Active Start: September 21, 2024 End: September 21, 2024 Dr. Karlos Maldonado MD Emergency Provider Active Start: September 21, 2024 End: September 21, 2024 Team Status: Active Member Role/Relationship Status Dates Dr. Cade Laureano MD Primary Care Provider Active Start: September 21, 2024 Dr. Mikael Shearer MD Attending Provider Active S tart: September 21, 2024 Goals (unrecognized section and content) Goals may be documented in a n alternate sectionGoals may be documented in an alternate section (unrecognized sect ion and content) No Status Records FoundNo Status Records Found INFORMATION SOURCE (unrecogn ized section and content) DATE CREATED AUTHOR 12/06/2021 [facility] DATE CREATED AUTHOR AUTHOR'S KIRSTIE ARCEO 08/19/2024 [facility] FOR RECORDS PERTAINING TO PATIENTS WHO ARE OR HAVE BEEN ENROLLED IN A CHEMICAL DEPENDENCY/SUBSTANCEABUSE PROGRAM, SOME INFORMATION MAY BE OMITTED. This clinical summary was aggregated from multiple sources. Caution should be exercised in using it in the provision of clinical care. This summary normalizes information from multiple sources, and as a consequence, information in this document may materially change the coding, format and clinical context of patient data. In addition, data may be omitted in some cases. CLINICAL DECISIONS SHOULD BE BASED ON THE PRIMARY CLINICAL RECORDS. [employer] provides no warranty or guarantee of the accuracy or completeness of information in this document.
== END 2024-09-21 14:30 | disposition home or self-care (01) ==
PROVIDERS: Emergency Provider Emergency Medicine; PCP Family Medicine; Visit Provider Emergency Medicine
DX: M79.604 Pain in right leg (principal); X58.XXXA Exposure to other specified factors, initial encounter; Y92.22 Religious institution as the place of occurrence of the external cause; I10 Essential (primary) hypertension; Z79.82 Long term (current) use of aspirin; Z79.899 Other long term (current) drug therapy
CPT/HCPCS: 72170; 73552; 73590; 80048; 82550; 85027; 93971; 96374; 96375; 96376; 99283; A4216